=== PATIENT | male | born 1935 | race Caucasian/White ===

== ENCOUNTER 2020-05-28 08:37 | Outpatient (REF) | payer MEDICARE, SELFPAY ==
[2020-05-28 10:13] LABS: MANUAL DIFF FLAG NO
[2020-05-28 10:15] LABS: Basophils Percent Auto 0.4 % (0-2); Eosinophils Absolute Auto 0.2 X10*3/uL (0.0-0.4); Eosinophils Percent Auto 2.7 % (0-4); Hematocrit 39.3 % (42-52); Hemoglobin 13.3 g/dl (14.0-18.0); Imm Gran Abs Auto 0.02 X10*3/uL (0.00-0.03); Imm Gran Pct Auto 0.3 % (0.0-0.4); Immature Retic Fraction 7.2 % (2.3-13.4); Lymphocytes Absolute Auto 1.7 X10*3/uL (1.2-4.9); Lymphocytes Percent Auto 25.5 % (20-40); Mean Corpuscular HGB Conc 33.8 g/dl (31.0-36.0); Mean Corpuscular Hemoglobin 30.4 pg (27.0-33.0); Mean Corpuscular Volume 89.7 fL (80-98); Monocytes Absolute Auto 0.6 X10*3/uL (0.1-1.2); Monocytes Percent Auto 9.1 % (2-11); Neutrophils Absolute Auto 4.2 X10*3/uL (2.0-8.3); Platelet Count 156 X10*3/uL (160-400); Red Blood Count 4.38 X10*6/uL (4.60-5.80); Red Cell Distribution Width 13.7 % (11.0-16.0); Retic HGB Equivalent 34.1 pg (30.0-35.0); Reticulocyte Percent 1.3 % (0.5-1.8); Reticulocytes Absolute 0.055 X10*6/uL (0.026-0.095); White Blood Count 6.8 X10*3/uL (4.8-10.8)
[2020-05-28 10:37] LABS: Alanine Aminotransferase 21 U/L (0-40); Albumin Level 3.7 g/dL (3.5-5.0); Alkaline Phosphatase 57 U/L (39-117); Anion Gap 11 (12-20); Aspartate Amino Transferase 25 U/L (5-37); Bilirubin Total 0.5 mg/dL (0.0-1.0); Blood Urea Nitrogen 18 mg/dL (9-16); Calcium 9.1 mg/dL (8.4-10.2); Carbon Dioxide 28 mmol/L (22-29); Chloride 107 mmol/L (96-108); Cholesterol 152 mg/dL; Estimated Glomerular Filt Rate > 60; Glucose Fasting 108 mg/dL (60-99); HDL Cholesterol 36 mg/dL; Iron 95 mcg/dL (45-160); LDL Cholesterol Calculated 97 mg/dl; Percent Iron Saturation 33 % (15-50); Sodium 142 mmol/L (135-145); Total Iron Binding Capacity 287 mcg/dL (228-428); Total Protein 6.6 g/dL (6.5-8.0); Triglycerides 99 mg/dL; Unsaturated Iron Binding 192 ug/dL
[2020-05-28 10:42] LABS: Albumin Level 3.7 g/dL (3.5-5.0); Magnesium 1.9 mg/dL (1.6-2.6); Phosphorus 2.1 mg/dL (2.7-4.5)
[2020-05-28 10:58] LABS: Glucose Urine UA NEG (NEG); Leukocyte Esterase Urine TRACE (NEG); Nitrite Urine NEG (NEG); PH 6.5 (5.0-8.0); Urine Blood NEG (NEG); Urine Ketones NEG (NEG); Urine Protein TRACE MG/DL (NEG-TRACE)
[2020-05-28 11:01] LABS: Thyroid Stimulating Hormone 0.92 uIU/mL (0.32-4.0)
[2020-05-28 11:01] LABS: Appearance Urine CLEAR; Color Urine YELLOW
[2020-05-28 11:03] LABS: Estimated Average Glucose 105 mg/dL; Hemoglobin A1c % 5.3 %
[2020-05-28 11:08] LABS: Folate 17.6 ng/mL (> or = 4.0); Vitamin B12 828 pg/mL (200-900)
[2020-05-28 11:17] LABS: Creatinine Urine 122.94 mg/dL; Protein/Creatinine Ratio, Ur 0.22 (<0.2); Total Protein Urine Random 27 mg/dL (<12)
[2020-05-28 11:20] LABS: Ferritin 51 ng/mL (20-250); T4 Thyroxine 6.5 ug/dL (4.5-12.0)
[2020-05-28 11:22] LABS: Microalbum/Creatinine Ratio Ur 80.8 ug/mg cr
[2020-05-28 11:23] LABS: Renal w Reflex-LAB USE ONLY Order Verified
[2020-05-28 11:35] LABS: Bacteria Urine TRACE /LPF; RBC Urine 0-2 /HPF (0); Squamous Epithelial Cell Urine 1+ /LPF
[2020-05-28 12:18] LABS: Renal w Reflex Lab Use Only Order verified
[2020-05-29 14:03] LABS: Calcium (PTHI) 9.5 mg/dL (8.6-10.3); PTHI 77 pg/mL (14-64)
== END 2020-05-28 08:38 | disposition home or self-care (01) ==
LOC: HO.10HDL 08:37
PROVIDERS: Absent Provider Internal Medicine Nephrology; Visit Provider Internal Medicine
DX: N17.9 Acute kidney failure, unspecified (principal); I12.9 Hypertensive chronic kidney disease with stage 1 through stage 4 chronic kidney disease, or unspecified chronic kidney disease; N18.4 Chronic kidney disease, stage 4 (severe); C67.9 Malignant neoplasm of bladder, unspecified; K21.9 Gastro-esophageal reflux disease without esophagitis; K20.0 Eosinophilic esophagitis; R31.9 Hematuria, unspecified; N31.9 Neuromuscular dysfunction of bladder, unspecified; N40.0 Benign prostatic hyperplasia without lower urinary tract symptoms; R73.01 Impaired fasting glucose; D64.9 Anemia, unspecified
CPT/HCPCS: 36415; 80053; 80061; 81001; 82040; 82043; 82607; 82728; 82746; 83036; 83540; 83735; 83970; 84100; 84156; 84436; 84443; 85025; 85045; 87086; 87088; 87186

== ENCOUNTER 2020-07-15 12:56 | Outpatient (AMB) | payer MEDICARE, SELFPAY ==
--- NOTE | 2020-07-15 12:59 | MHC.OFFVIS ---
Intake Vital Signs 07/15/20 13:00 Height 5 ft 11 in Weight 194 lb BMI 27.0 Intake Visit Reasons: cysto Intake Note: Patient is present for cystoscopy [employer] Required: No Allergies No Known Allergies [No Known Allergies*] Allergy (Verified 07/15/20 13:13) - Last Reconciled 07/15/20 by Damon Kay III, MD doxazosin 2 mg PO DAILY hydralazine 25 mg PO BID [id number]-xheza acid-lutein 400-250 mcg (Centrum Silver) 1 tab PO DAILY nitrofurantoin macrocrystal (Macrodantin) 100 mg PO DAILY potassium chloride ER 20 mEq PO DAILY saw palmetto 500 mg PO DAILY tamsulosin 0.4 mg PO DAILY torsemide 20 mg PO DAILY - Last Reconciled 07/15/20 by Damon Kay III, MD doxazosin 2 mg PO DAILY hydralazine 25 mg PO BID [id number]-yqm-uknkd acid-lutein 400-250 mcg (Centrum Silver) 1 tab PO DAILY nitrofurantoin macrocrystal (Macrodantin) 100 mg PO DAILY potassium chloride ER 20 mEq PO DAILY saw palmetto 500 mg PO DAILY tamsulosin 0.4 mg PO DAILY torsemide 20 mg PO DAILY [facility] Medical History BPH (benign prostatic hyperplasia) CKD (chronic kidney disease) GERD (gastroesophageal reflux disease) History of renal calculi Hypertension Impaired glucose tolerance Neurogenic bladder Urinary bladder cancer Surgical History History of lumbar discectomy History of throat surgery History of tonsillectomy S/P transurethral resection of prostate Family History Father No problems noted. Mother No problems noted. Son In good health Daughter In good health HPI cysto HPI Details Patient bladder cancer follow-up 3 month cystoscopy which is negative for recurrence. Patient was prepped and draped view fashion underwent flexible cystoscopy had retrograde flexion done patient has some trabeculations some erythema but he self caths no stones no foreign bodies no mucosal lesions identified patient tolerated procedure well there were no complications. 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 Patient has had BCG and gemcitabine. Currently plan for the patient follow-up 3 months time with a repeat in office cystoscopy risks benefits potential complications morbidity mortality all questions answered informed consent obtained Review of Systems Const All systems reviewed & are unremarkable except as noted in HPI and below Physical Exam Vital Signs: Body Mass Index 27.0 Const General: cooperative, healthy appearing, comfortable, no acute distress, well developed, alert and awake Orientation/consciousness: oriented to person and patient oriented x3 HENMT Head: Yes normal to inspection Eyes General: appearance normal, both eyes and all related structures Neck Neck: Yes normal visual inspection Chest Chest palpation & inspection: normal inspection of the chest Resp Effort & Inspection: normal respiratory effort and able to speak in complete sentences Cardio Rate: regular rate Rhythm: regular rhythm GI Inspection: Yes normal to inspection Male General Exam: Yes normal external exam Penis: normal penis Skin General skin exam: no rashes or lesions noted Neuro General: oriented to person and patient oriented x3 Extrem General: Yes normal to inspection and Yes full ROM Psych Appearance: grossly normal Mental Status: mental status grossly normal Office Procedures AMB Cystoscopy Cystoscopy: [id number] Consent Consent:: Informed consent given for proposed procedure. Office Meds ciprofloxacin HCl Performing Provider: Damon Kay III, MD Administered by: KULDEEP Haynes on 07/15/20 13:04 Dose Route Admin Location Lot Number Expiration Date NDC Field Placement Director 500 mg PO Assessment & Plan Assessment & Plan (1) Neurogenic bladder: Code(s): N31.9 - Neuromuscular dysfunction of bladder, unspecified Category: Medical (2) Urinary bladder cancer: Comment: January 2016 BCG done, gemcitabine, cystoscopy every 3 months Code(s): C67.9 - Malignant neoplasm of bladder, unspecified Category: Medical Coding Level of Care Code Est Pt Level 3 (59510) Diagnoses Neurogenic bladder N31.9 Urinary bladder cancer C67.9 CPT Codes Cystoscopy - Cystoscopy: [id number] ([id number])
[2020-07-15 13:00] VITALS: BMI 27.0
== END 2020-07-15 13:15 | disposition home or self-care (01) ==
LOC: HO.HUSH 12:56
PROVIDERS: PCP Internal Medicine; Referring Provider Internal Medicine; Visit Provider Urology
DX: Z13.9 Encounter for screening, unspecified (principal)
CPT/HCPCS: 52000

== ENCOUNTER → 2020-07-15 12:56 | Outpatient (BNVA) | payer MEDICARE, SELFPAY | PROVIDERS: PCP Internal Medicine; Referring Provider Internal Medicine; Visit Provider Urology | DX: N31.9 Neuromuscular dysfunction of bladder, unspecified (principal); C67.9 Malignant neoplasm of bladder, unspecified | CPT/HCPCS: 52000; 99212 ==

== ENCOUNTER → 2020-11-01 11:00 | Outpatient (BNVA) | payer MEDICARE, SELFPAY | PROVIDERS: Visit Provider Urology | DX: N31.9 Neuromuscular dysfunction of bladder, unspecified (principal); N40.1 Benign prostatic hyperplasia with lower urinary tract symptoms; N13.8 Other obstructive and reflux uropathy; C67.9 Malignant neoplasm of bladder, unspecified | CPT/HCPCS: 52000; 99212 ==

== ENCOUNTER → 2021-01-31 09:55 | Outpatient (BNVA) | payer MEDICARE, SELFPAY | PROVIDERS: PCP Internal Medicine; Visit Provider Urology | DX: C67.9 Malignant neoplasm of bladder, unspecified (principal); N40.1 Benign prostatic hyperplasia with lower urinary tract symptoms; N13.8 Other obstructive and reflux uropathy; N31.9 Neuromuscular dysfunction of bladder, unspecified | CPT/HCPCS: 52000; 99212 ==

== ENCOUNTER 2021-02-25 09:02 | Outpatient (REF) | payer MEDICARE, SELFPAY ==
[2021-02-25 10:15] LABS: MANUAL DIFF FLAG NO
[2021-02-25 10:22] LABS: Basophils Percent Auto 0.5 % (0-2); Eosinophils Absolute Auto 0.3 X10*3/uL (0.0-0.4); Eosinophils Percent Auto 3.1 % (0-4); Hematocrit 40.6 % (42-52); Hemoglobin 13.6 g/dl (14.0-18.0); Imm Gran Abs Auto 0.02 X10*3/uL (0.00-0.03); Imm Gran Pct Auto 0.3 % (0.0-0.4); Lymphocytes Absolute Auto 2.7 X10*3/uL (1.2-4.9); Lymphocytes Percent Auto 34.1 % (20-40); Mean Corpuscular HGB Conc 33.5 g/dl (31.0-36.0); Mean Corpuscular Hemoglobin 30.1 pg (27.0-33.0); Mean Corpuscular Volume 89.8 fL (80-98); Mean Platelet Volume 11.5 fL (9.4-12.4); Monocytes Absolute Auto 0.6 X10*3/uL (0.1-1.2); Monocytes Percent Auto 7.3 % (2-11); Neutrophils Absolute Auto 4.4 X10*3/uL (2.0-8.3); Neutrophils Percent Auto 54.7 % (45-73); Platelet Count 140 X10*3/uL (160-400); Red Blood Count 4.52 X10*6/uL (4.60-5.80); Red Cell Distribution Width 13.4 % (11.0-16.0)
[2021-02-25 10:27] LABS: Estimated Average Glucose 100 mg/dL; Hemoglobin A1c % 5.1 %
[2021-02-25 10:34] LABS: Alanine Aminotransferase 21 U/L (0-40); Albumin Level 3.9 g/dL (3.5-5.0); Alkaline Phosphatase 48 U/L (39-117); Anion Gap 11 (12-20); Aspartate Amino Transferase 22 U/L (5-37); Bilirubin Total 0.8 mg/dL (0.0-1.0); Blood Urea Nitrogen 20 mg/dL (9-16); Calcium 9.6 mg/dL (8.4-10.2); Carbon Dioxide 28 mmol/L (22-29); Chloride 109 mmol/L (96-108); Cholesterol 160 mg/dL; Estimated Glomerular Filt Rate 59; Glucose Random 112 mg/dL (60-115); HDL Cholesterol 43 mg/dL; LDL Cholesterol Calculated 99 mg/dl; Potassium 4.1 mmol/L (3.3-5.1); Sodium 144 mmol/L (135-145); Total Protein 6.8 g/dL (6.5-8.0); Triglycerides 90 mg/dL
[2021-02-25 10:58] LABS: Free T4 (Free Thyroxine) 0.96 ng/dL (0.71-1.85); Prostate Specific Antigen Scr 2.21 ng/mL (<0.05-4.0)
[2021-02-25 11:13] LABS: Folate 17.5 ng/mL (> or = 4.0); Vitamin B12 720 pg/mL (200-900)
== END 2021-02-25 09:03 | disposition home or self-care (01) ==
LOC: HO.10HDL 09:02
PROVIDERS: Visit Provider Internal Medicine
DX: R73.02 Impaired glucose tolerance (oral) (principal); E78.00 Pure hypercholesterolemia, unspecified
CPT/HCPCS: 36415; 80053; 80061; 82607; 82746; 83036; 84153; 84439; 84443; 85025

== ENCOUNTER 2021-04-21 06:56 | Day surgery (SDC) | payer MEDICARE, SELFPAY ==
[2021-04-11 20:18] VITALS: BMI 27.9
--- NOTE | 2021-04-17 13:25 | P.CONAN_ITS ---
Documented by User: Michelle Peters NP 04/17/21 13:26 HPI - Anesthesia Eval Consult details Narrative: 85yo M for Laser Ablation Prostate w/Green Light ?daily ETOH PMFSH Active Problems Active Problems: All Active Problems (Updated 01/07/21 @ 13:03 by Gopi Maldonado MD) Peripheral vascular disease (Acute) Impacted cerumen of both ears (Acute) Urinary bladder cancer (Acute) Neurogenic bladder (Acute) GERD (gastroesophageal reflux disease) (Acute) Impaired glucose tolerance (Acute) BPH (benign prostatic hyperplasia) (Acute) Hypertension (Acute) Past Medical History Medical History BPH (benign prostatic hyperplasia) CKD (chronic kidney disease) GERD (gastroesophageal reflux disease) History of renal calculi Hypertension Impaired glucose tolerance Neurogenic bladder Urinary bladder cancer Family History Family History Father No problems noted. Mother No problems noted. Son In good health Daughter In good health Surgical History Surgical History History of lumbar discectomy History of throat surgery History of tonsillectomy S/P transurethral resection of prostate Social History Social History (Updated 01/07/21 @ 12:41 by Lisa Caballero CMA) Housing: House Do you presently have visiting nurse or other home services: No Alcohol intake: current Alcohol intake frequency: 0-2 drinks per day Patient Tobacco Use Status: Former Tobacco user Quit Date: 1979 Tobacco use type: Cigarette e-Cigarette/Vaping Use: Never Used Second Hand Smoke Exposure: No Use of substances other than those prescribed or required for medical reasons: No Are you DNR?: No Advance Directives: Yes Advance Directives Information Provided: Yes Advance Directives on File: Yes Advance Directives Date on File: 08/06/20 Recently lost weight without trying: No Nutrition Risks: Anorexia Poor oral hygiene: No service: Yes Current occupational status: retired Meds Allergies Allergy/AdvReac Type Severity Reaction Status Date / Time No Known Allergies Allergy Verified 04/15/21 08:18 [No Known Allergies*] Home Medications Medication Instructions Recorded Confirmed Last Taken Type doxazosin 2 mg tablet 2 mg PO DAILY 07/09/20 04/11/21 Unknown History hydralazine 25 mg tablet 25 mg PO BID tab 07/09/20 04/21/21 04/21/21 06:30 History multivit with min-folic 1 tab PO DAILY 07/09/20 04/11/21 Unknown History acid-lutein 400 mcg-250 mcg chewable tablet (Centrum Silver) potassium chloride 20 mEq 20 meq PO DAILY 07/09/20 04/11/21 Unknown History tablet,extended release saw palmetto 500 mg capsule 500 mg PO DAILY cap 07/09/20 04/11/21 Unknown History torsemide 20 mg tablet 20 mg PO DAILY 07/09/20 04/11/21 Unknown History ciprofloxacin HCl 500 mg tablet 500 mg PO BID PRN 04/11/21 04/11/21 Unknown History Exam Exam Date and Time: April 17, 2021 1325 Height,Weight and Vital Signs: Height 5 ft 10 in Weight 88.451 kg Narrative Narrative: Laboratory Tests 02/25/21 02/25/21 09:06 09:06 WBC 8.0 Hgb 13.6 L Hct 40.6 L Plt Count 140 L Sodium 144 Potassium 4.1 Chloride 109 H Carbon Dioxide 28 BUN 20 H Creatinine 1.17 Assessment and Plan Assessment Anesthesia Assessment: Chart Reviewed Documented by User: Aby Ramirez MD 04/21/21 08:38 HPI - Anesthesia Eval Consult details Narrative: 85yo M for Laser Ablation Prostate w/Green Light Daily ETOH PMFSH Active Problems Active Problems: All Active Problems (Updated 01/07/21 @ 13:03 by Gopi Maldonado MD) Peripheral vascular disease (Acute)- patient not aware of diagnosis Impacted cerumen of both ears (Acute) Urinary bladder cancer (Acute) Neurogenic bladder (Acute) GERD (gastroesophageal reflux disease) (Acute) Impaired glucose tolerance (Acute) BPH (benign prostatic hyperplasia) (Acute) Hypertension (Acute) Past Medical History Medical History BPH (benign prostatic hyperplasia) CKD (chronic kidney disease) GERD (gastroesophageal reflux disease) History of renal calculi Hypertension Impaired glucose tolerance Neurogenic bladder Urinary bladder cancer Family History Family History Father No problems noted. Mother No problems noted. Son In good health Daughter In good health Family history of problems with anesthesia: No Surgical History Surgical History History of lumbar discectomy History of throat surgery History of tonsillectomy S/P transurethral resection of prostate History of Problems with Anesthesia: No Social History Social History (Updated 01/07/21 @ 12:41 by Lisa Caballero CMA) Housing: House Do you presently have visiting nurse or other home services: No Alcohol intake: current Alcohol intake frequency: 0-2 drinks per day Patient Tobacco Use Status: Former Tobacco user Quit Date: 1979 Tobacco use type: Cigarette e-Cigarette/Vaping Use: Never Used Second Hand Smoke Exposure: No Use of substances other than those prescribed or required for medical reasons: No Are you DNR?: No Advance Directives: Yes Advance Directives Information Provided: Yes Advance Directives on File: Yes Advance Directives Date on File: 08/06/20 Recently lost weight without trying: No Nutrition Risks: Anorexia Poor oral hygiene: No service: Yes Current occupational status: retired [employer] Allergies Allergy/AdvReac Type Severity Reaction Status Date / Time No Known Allergies Allergy Verified 04/15/21 08:18 [No Known Allergies*] Home Medications Medication Instructions Recorded Confirmed Last Taken Type doxazosin 2 mg tablet 2 mg PO DAILY 07/09/20 04/11/21 Unknown History hydralazine 25 mg tablet 25 mg PO BID tab 07/09/20 04/21/21 04/21/21 06:30 History multivit with min-folic 1 tab PO DAILY 07/09/20 04/11/21 Unknown History acid-lutein 400 mcg-250 mcg chewable tablet (Centrum Silver) potassium chloride 20 mEq 20 meq PO DAILY 07/09/20 04/11/21 Unknown History tablet,extended release saw palmetto 500 mg capsule 500 mg PO DAILY cap 07/09/20 04/11/21 Unknown History torsemide 20 mg tablet 20 mg PO DAILY 07/09/20 04/11/21 Unknown History ciprofloxacin HCl 500 mg tablet 500 mg PO BID PRN 04/11/21 04/11/21 Unknown History Exam Height,Weight and Vital Signs: Height 5 ft 10 in Weight 88.451 kg Vital Signs Temp Pulse Resp BP Pulse Ox 04/21/21 07:57 97.7 F 77 18 161/70 H 98 Airway Mallampati Class: III (Small mouth) TM Dist: >3cm Neck ROM: Full Loose/Missing/Broken Teeth: Yes (Some missing) Heart: RRR Lungs: CTAB Assessment and Plan Assessment Anesthesia Assessment: Anesthesia Plan Discussed Final Anesthetic Review Family History of Problems with Anesthesia: No History of Problems with Anesthesia: No NPO: Yes ASA Class: II Final Preanesthetic Review: No Changes in Pt Med Stat, Meds/Allgs Chart Reviewed, Consent Obtained/Reviewed and Anes Risks/Benef Reviewed Patient Risk: Intermediate Procedure Risk: Low Assessment/Block/Sedation in SS: Assess/Block/Sedation-SS Anesthetic Plan Anesthetic Plan: GA Disposition: Standard PACU
[2021-04-21] MEDS: Lactated Ringers 1,000 ML 100 ML IVCONT (07:28)
--- NOTE | 2021-04-21 07:28 | MHC.SHP ---
Pre-Procedural Eval Section A Date of Service: 04/21/21 Section B Chief Complaint: neoplasm of bladder Details of Present Illness: with neurogenic bladder - plan for revision laser procedure on prostate and bladder biopsy with fulgeration Relevant Social History: None Present Medications: see Short Stay Collaborative assessment Medical History: Significant History History of Previous Operations: Relevant previous surgery/procedure and date(s) Allergies: Allergies Allergy/AdvReac Type Severity Reaction Status Date / Time No Known Allergies Allergy Verified 04/15/21 08:18 [No Known Allergies*] Review of Systems Sugical H&P ROS: Negative: Constitution, Cardiovascular, Respiratory, Neurological, Psychiatric, Hem-Onc, Allergic/Immunologic, Gastrointestinal, Genitourinary, Musculoskeletal, Integumentary, Endocrine and Eyes/Ears/Nose/Throat Exam Surgical H&P Exam: Normal: HEENT, Normal: Heart, Normal: Lungs, Normal: Extremities, Normal: Abdomen, Normal: Skin and Normal: Neurological Plan Diagnosis/Plan: Unchanged (green light laser prostate and bladder biopsy with laser) I have reviewed the history and physical and performed a pertinent physical examination on my patient. No changes have occurred unless specified.
[2021-04-21] MEDS: levoFLOXacin/D5W 500 MG/100 ML PIGGYBACK 100 MG IV (07:36)
[2021-04-21 07:57] VITALS: BP 161/70; PULSE 77; RESP 18; TEMP 36.5; O2SAT 98
[2021-04-21 09:56] VITALS: BP 155/87; PULSE 66; RESP 18; TEMP 36.3; O2SAT 100
[2021-04-21 10:04] VITALS: BP 154/78; PULSE 67; RESP 18; O2SAT 97
[2021-04-21 10:09] VITALS: BP 160/77; PULSE 60; RESP 18; O2SAT 97
[2021-04-21 10:14] VITALS: BP 160/72; PULSE 58; RESP 18; O2SAT 98
[2021-04-21] MEDS: Acetaminophen 325 MG TABLET 625 MG PO (10:14)
[2021-04-21 10:29] VITALS: BP 171/70; PULSE 60; RESP 18; TEMP 36.4; O2SAT 98
--- NOTE | 2021-04-23 08:22 | P.OP_ITS ---
Operative Note Operative Note Date of Service: 04/21/21 Narrative: PreOperative Diagnosis: Bladder outlet obstruction, bladder cancer Post Operative Diagnosis: Bladder outlet obstruction, bladder cancer Procedure: GreenLight laser enucleation of the prostate, bladder biopsy with fulguration Surgeon: Dr Roberto Aleman Anesthesia: General Indications for procedure: History of bladder outlet obstruction. Treated with alpha-jing and other medications. Prior TURP procedure many years ago. Cystoscopy performed in office. Regrowth noted of prostate. Recommendation for prostate procedure with laser enucleation of prostate. Risks, benefits and expected postprocedure course was discussed. Procedure: After informed consent was verified the patient was brought to the operating room and placed in a supine position. Anesthesia was administered per protocol. Patient was placed in modified dorsal lithotomy position and prepped and draped in a sterile fashion. Safety pause time-out was confirmed. Antibiotics have been given. Twenty-four Tanzanian laser cystoscope was inserted per urethra. No abnormalities found the anterior posterior urethra. The bladder was filled on both ureteric orifices were seen in normal position away from our area of interest. Regrowth particularly of the right lateral lobe was noted Using the GreenLight laser settings were started at 100 w. The regrown tissue was carefully ablated. The median lobe area was open. Concentration was made to ablate the lateral lobe regrowth on both sides. Approximately 75,000 joules were used performing this procedure. The bladder itself was examined and there was changed mucosa appeared consistent with chronic cystitis. Areas were biopsied. Fulguration using GreenLight laser with hemostatic settings was performed. A 22 Tanzanian 30 cc balloon Atkins catheter was placed over stylet into the bladder. Clear efflux was obtained. 30 cc was placed in the balloon and gentle traction was placed. A snap was used to hold tension once the patient will be moved and transported. Once transportation its finish this novel be removed. A belladonna and opiate suppository was placed for postprocedure pain management. He tolerated procedure well was extubated in the operating and transferred in a stable condition to the recovery area. Pathology: Prostate tissue, bladder biopsy Drains: Atkins catheter
== END 2021-04-21 11:35 | disposition home or self-care (01) ==
PROVIDERS: PCP Internal Medicine; Visit Provider Urology
PROC: (CPT 52648; principal; 2021-04-21 08:30)
DX: C67.9 Malignant neoplasm of bladder, unspecified (principal); N40.1 Benign prostatic hyperplasia with lower urinary tract symptoms; N13.8 Other obstructive and reflux uropathy; N31.9 Neuromuscular dysfunction of bladder, unspecified; N30.20 Other chronic cystitis without hematuria; I12.9 Hypertensive chronic kidney disease with stage 1 through stage 4 chronic kidney disease, or unspecified chronic kidney disease; N18.9 Chronic kidney disease, unspecified; R73.02 Impaired glucose tolerance (oral); Z87.442 Personal history of urinary calculi; Z87.891 Personal history of nicotine dependence
CPT/HCPCS: 52648; 52224; 88305; J1100; J1956; J2405; J3010

== ENCOUNTER → 2021-04-24 09:53 | Outpatient (BNVA) | payer MEDICARE, SELFPAY | PROVIDERS: PCP Internal Medicine; Visit Provider Urology ==

== ENCOUNTER 2021-05-27 09:36 | Outpatient (REF) | payer MEDICARE, SELFPAY ==
[2021-05-27 14:05] LABS: MANUAL DIFF FLAG NO
[2021-05-27 14:13] LABS: Basophils Percent Auto 0.4 % (0-2); Eosinophils Absolute Auto 0.3 X10*3/uL (0.0-0.4); Eosinophils Percent Auto 3.4 % (0-4); Hematocrit 40.8 % (42.0-52.0); Hemoglobin 13.6 g/dl (14.0-18.0); Imm Gran Abs Auto 0.01 X10*3/uL (0.00-0.03); Imm Gran Pct Auto 0.1 % (0.0-0.4); Lymphocytes Absolute Auto 2.3 X10*3/uL (1.2-4.9); Lymphocytes Percent Auto 31.5 % (20-40); Mean Corpuscular HGB Conc 33.3 g/dl (31.0-36.0); Mean Corpuscular Hemoglobin 30.2 pg (27.0-33.0); Mean Corpuscular Volume 90.5 fL (80.0-98.0); Mean Platelet Volume 11.7 fL (9.4-12.4); Monocytes Absolute Auto 0.7 X10*3/uL (0.1-1.2); Monocytes Percent Auto 8.9 % (2-11); Neutrophils Absolute Auto 4.1 x10*3/uL (2.0-8.3); Neutrophils Percent Auto 55.7 % (45-73); Platelet Count 141 X10*3/uL (160-400); Red Blood Count 4.51 X10*6/uL (4.60-5.80); Red Cell Distribution Width 13.2 % (11.0-16.0); White Blood Count 7.3 X10*3/uL (4.8-10.8)
[2021-05-27 14:39] LABS: Albumin Level 3.9 g/dL (3.5-5.0); Anion Gap 13 (12-20); Blood Urea Nitrogen 23 mg/dL (9-16); Calcium 9.5 mg/dL (8.4-10.2); Carbon Dioxide 26 mmol/L (22-29); Chloride 109 mmol/L (96-108); Estimated Glomerular Filt Rate 55; Magnesium 2.1 mg/dL (1.6-2.6); Phosphorus 2.1 mg/dL (2.7-4.5); Potassium 4.1 mmol/L (3.3-5.1); Sodium 144 mmol/L (135-145)
[2021-05-27 14:42] LABS: Renal w Reflex Lab Use Only Order verified
[2021-05-27 14:58] LABS: Vitamin D 25-OH Total 29.6 ng/mL (>30)
[2021-05-28 10:48] LABS: Appearance Urine CLEAR; Color Urine YELLOW; Glucose Urine UA NEG (NEG); Leukocyte Esterase Urine 2+ (NEG); Nitrite Urine NEG (NEG); Specific Gravity - Urine 1.015 (1.005-1.025); UACC Culture Trigger YES; Urine Blood TRACE (NEG); Urine Ketones NEG (NEG); Urine Protein 1+ MG/DL (NEG-TRACE)
[2021-05-28 11:17] LABS: WBC Urine 30-49 /HPF (0-4)
[2021-05-28 11:18] LABS: Creatinine Urine 113.42 mg/dL; Microalbum/Creatinine Ratio Ur 175.4 ug/mg cr; Protein/Creatinine Ratio, Ur 0.39 (<0.2); Squamous Epithelial Cell Urine TRACE /LPF; Total Protein Urine Random 44 mg/dL (<12)
[2021-05-28 13:22] LABS: Calcium (PTHI) 9.5 mg/dL (8.6-10.3); PTHI 85 pg/mL (14-64)
[2021-05-28 14:35] LABS: Renal w Reflex-LAB USE ONLY Order Verified
== END 2021-05-27 09:37 | disposition home or self-care (01) ==
LOC: HO.10HDL 09:36
PROVIDERS: Visit Provider Internal Medicine Nephrology
DX: I12.9 Hypertensive chronic kidney disease with stage 1 through stage 4 chronic kidney disease, or unspecified chronic kidney disease (principal); N18.4 Chronic kidney disease, stage 4 (severe); N17.9 Acute kidney failure, unspecified; C67.9 Malignant neoplasm of bladder, unspecified; K21.9 Gastro-esophageal reflux disease without esophagitis; N20.0 Calculus of kidney; R31.9 Hematuria, unspecified; N31.9 Neuromuscular dysfunction of bladder, unspecified
CPT/HCPCS: 36415; 80051; 81001; 81003; 82040; 82043; 82306; 82310; 82565; 83735; 83970; 84100; 84156; 84520; 85025; 87086

== ENCOUNTER → 2021-06-03 10:23 | Outpatient (BNVA) | payer MEDICARE, SELFPAY | PROVIDERS: PCP Internal Medicine; Visit Provider Urology | DX: C67.9 Malignant neoplasm of bladder, unspecified (principal); N31.9 Neuromuscular dysfunction of bladder, unspecified; N40.1 Benign prostatic hyperplasia with lower urinary tract symptoms; N13.8 Other obstructive and reflux uropathy; I12.9 Hypertensive chronic kidney disease with stage 1 through stage 4 chronic kidney disease, or unspecified chronic kidney disease; N18.9 Chronic kidney disease, unspecified; Z87.891 Personal history of nicotine dependence; Z96.0 Presence of urogenital implants; Z79.899 Other long term (current) drug therapy | CPT/HCPCS: Q3014 ==

== ENCOUNTER → 2021-11-18 09:57 | Outpatient (BNVA) | payer MEDICARE, SELFPAY | PROVIDERS: PCP Internal Medicine; Visit Provider Urology | DX: C67.9 Malignant neoplasm of bladder, unspecified (principal) | CPT/HCPCS: 52000; 99212 ==

== ENCOUNTER 2021-12-15 12:30 | Day surgery (SDC) | payer MEDICARE, SELFPAY ==
[2021-12-09 10:45] VITALS: BMI 27.9
--- NOTE | 2021-12-12 11:11 | HO.ANESPROP2 ---
Documented by User: Michelle Peters NP 12/12/21 11:15 HPI - Anesthesia Eval Consult details Narrative: 86yo M for TUR Bladder Tumor with gemcitabine s/p laser prostate 04/2021 with GA-LMA 4 PMFSH Active Problems Active Problems: All Active Problems (Updated 07/10/21 @ 11:32 by PAMELA Doherty) Neurogenic bladder (Acute) Adult general medical exam (Acute) Urinary bladder cancer (Acute) GERD (gastroesophageal reflux disease) (Acute) Impaired glucose tolerance (Acute) BPH (benign prostatic hyperplasia) (Acute) Hypertension (Acute) Past Medical History Medical History (Updated 12/15/21 @ 15:24 by Gopi Maldonado MD) CKD (chronic kidney disease) History of renal calculi Impacted cerumen of both ears Neurogenic bladder Peripheral vascular disease Family History Family History Father No problems noted. Mother No problems noted. Son In good health Daughter In good health Family history of problems with anesthesia: No Surgical History Surgical History (Updated 12/09/21 @ 10:42 by Chelle Tomlinson RN) H/O colonoscopy History of biopsy of bladder History of esophagogastroduodenoscopy (EGD) History of lumbar discectomy History of prostate surgery History of throat surgery History of tonsillectomy S/P transurethral resection of prostate History of Problems with Anesthesia: No Social History Social History Housing: House Do you presently have visiting nurse or other home services: No Alcohol intake: current Alcohol intake frequency: 0-2 drinks per day Patient Tobacco Use Status: Former Tobacco user Quit Date: 1979 Tobacco use type: Cigarette e-Cigarette/Vaping Use: Never Used Second Hand Smoke Exposure: No Use of substances other than those prescribed or required for medical reasons: No Are you DNR?: No Advance Directives: No Advance Directives Information Provided: Yes Advance Directives Date on File: 08/06/20 service: Yes Current occupational status: retired Meds Allergies Allergy/AdvReac Type Severity Reaction Status Date / Time No Known Allergies Allergy Verified 11/18/21 10:09 [No Known Allergies*] Home Medications Medication Instructions Recorded Confirmed Last Taken Type hydralazine 25 mg tablet 25 mg PO BID 07/09/20 12/09/21 04/21/21 06:30 History multivit with min-folic 1 tab PO DAILY 07/09/20 12/09/21 Unknown History acid-lutein 400 mcg-250 mcg chewable tablet (Centrum Silver) potassium chloride 20 mEq 20 meq PO DAILY 07/09/20 12/09/21 Unknown History tablet,extended release torsemide 20 mg tablet 20 mg PO DAILY 07/09/20 12/09/21 Unknown History doxazosin 2 mg tablet 4 mg PO DAILY 07/10/21 12/09/21 Unknown History Exam Exam Date and Time: December 12, 2021 1111 Height,Weight and Vital Signs: Height 5 ft 10 in Weight 88.451 kg Pertinent Lab Results Pertinent Lab Results: Laboratory Tests 05/27/21 05/27/21 09:50 09:50 WBC 7.3 Hgb 13.6 L Hct 40.8 L Plt Count 141 L Sodium 144 Potassium 4.1 Chloride 109 H Carbon Dioxide 26 BUN 23 H Creatinine 1.25 Assessment and Plan Assessment Anesthesia Assessment: Chart Reviewed Final Anesthetic Review Family History of Problems with Anesthesia: No History of Problems with Anesthesia: No Documented by User: Carroll Fierro MD 12/15/21 16:45 [facility] Past Medical History Medical History (Updated 12/15/21 @ 15:24 by Gopi Maldonado MD) CKD (chronic kidney disease) History of renal calculi Impacted cerumen of both ears Neurogenic bladder Peripheral vascular disease Family History Family History Father No problems noted. Mother No problems noted. Son In good health Daughter In good health Surgical History Surgical History (Updated 12/09/21 @ 10:42 by Chelle Tomlinson RN) H/O colonoscopy History of biopsy of bladder History of esophagogastroduodenoscopy (EGD) History of lumbar discectomy History of prostate surgery History of throat surgery History of tonsillectomy S/P transurethral resection of prostate Social History Social History Housing: House Do you presently have visiting nurse or other home services: No Alcohol intake: current Alcohol intake frequency: 0-2 drinks per day Patient Tobacco Use Status: Former Tobacco user Quit Date: 1979 Tobacco use type: Cigarette e-Cigarette/Vaping Use: Never Used Second Hand Smoke Exposure: No Use of substances other than those prescribed or required for medical reasons: No Are you DNR?: No Advance Directives: No Advance Directives Information Provided: Yes Advance Directives Date on File: 08/06/20 service: Yes Current occupational status: retired Meds Allergies Allergy/AdvReac Type Severity Reaction Status Date / Time No Known Allergies Allergy Verified 11/18/21 10:09 [No Known Allergies*] Home Medications Medication Instructions Recorded Confirmed Last Taken Type hydralazine 25 mg tablet 25 mg PO BID 07/09/20 12/09/21 04/21/21 06:30 History multivit with min-folic 1 tab PO DAILY 07/09/20 12/09/21 Unknown History acid-lutein 400 mcg-250 mcg chewable tablet (Centrum Silver) potassium chloride 20 mEq 20 meq PO DAILY 07/09/20 12/09/21 Unknown History tablet,extended release torsemide 20 mg tablet 20 mg PO DAILY 07/09/20 12/09/21 Unknown History doxazosin 2 mg tablet 4 mg PO DAILY 07/10/21 12/09/21 Unknown History Exam Airway Mallampati Class: III TM Dist: >3cm Neck ROM: Full Partial: Lower Loose/Missing/Broken Teeth: Yes (Poor dentition ) Heart: S1,S2 Lungs: b/l breath sounds Assessment and Plan Assessment Anesthesia Assessment: Anesthesia Plan Discussed Final Anesthetic Review NPO: Yes ASA Class: II Final Preanesthetic Review: Meds/Allgs Chart Reviewed, Consent Obtained/Reviewed and Anes Risks/Benef Reviewed Patient Risk: Intermediate Procedure Risk: Intermediate Anesthetic Plan Anesthetic Plan: GA Disposition: Standard PACU
[2021-12-15] VITALS (11 sets, daily range): BP systolic 134–159; BP diastolic 59–77; PULSE 63–87; RESP 14–18; TEMP 36.7–37.1; O2SAT 96–99
--- NOTE | 2021-12-15 13:46 | MHC.SHP ---
Pre-Procedural Eval Section A Date of Service: 12/15/21 The patient is an INPATIENT: No Changes since office visit: No Cold of Flu in the past 2 weeks, No New Medical Problems, No Changes in Medication and No Patient answered all questions The History & Physical has been completed within 30 days and I have reviewed it.: Yes Section B Chief Complaint: Malignant neoplasm of bladder, unspecified Allergies: Allergies Allergy/AdvReac Type Severity Reaction Status Date / Time No Known Allergies Allergy Verified 11/18/21 10:09 [No Known Allergies*] Plan Diagnosis/Plan: Unchanged (cystoscopy, turbt and gemcitabine) I have reviewed the history and physical and performed a pertinent physical examination on my patient. No changes have occurred unless specified.
--- NOTE | 2021-12-15 14:54 | W.PM.OPN ---
Operative Note Operative Note Date of Service: 12/15/21 Narrative: PreOperative Diagnosis: bladder cancer Post Operative Diagnosis: bladder cancer Procedure: TURBT - Medium - and Gemcitabine installation Surgeon: Dr Roberto Aleman Anesthesia: general Indications for procedure: recurrent superficial bladder cancer on cystoscopy Procedure: After informed consent was verified the patient was brought to the operating room and placed in a supine position. anesthesia was administered per protocol. the patient was placed in a modified dorsal lithotomy position and prepped and draped in a sterile fashion. Safety pause time-out was performed. Antibiotics were confirmed. A 26 [place]ian continuous flow resectoscope was inserted per urethra. The visual obturator was used in order to minimize potential for urethral damage. Superficial bladder cancer throughout posterior and left wall of bladder. Using bipolar resectoscope this area was fulgurated extensively. Cancer was really just involving upper layer the surface. We were using a scope compatible with narrow band imaging. Narrow band imaging performed throughout cystoscopy in order highlight and help visualize areas for fulguration. Multiple areas larger than a quarter fulgerated on posterior wall. At the completion of the procedure the bladder was irrigated. The cystoscope was removed. A [address] Atkins catheter was inserted into the bladder. 10 cc was placed in the balloon. 2 g of gemcitabine in 100 cc of normal saline was instilled into the bladder. the flow from the catheter was left clamped. The inflow to the catheter was attached to a 3 L normal saline bag. The patient Tolerated the procedure well. They were extubated in the operating room and transferred in stable condition to the recovery area. Gemcitabine will remain in the bladder for 1 hour. At the completion of 1 hour the clamp will be removed. The gemcitabine will be allowed to egress to the urine collection bag. The 3 L bag of normal saline will be run at maximum rate through the bladder in order to dilute any residual gemcitabine. The Atkins catheter will then be removed. Pathology: - Drains: 3 way catheter
== END 2021-12-15 17:24 | disposition home or self-care (01) ==
PROVIDERS: PCP Internal Medicine; Visit Provider Urology
PROC: 0TBB8ZZ Excision of Bladder, Via Natural or Artificial Opening Endoscopic (ICD-10-PCS; CPT 52235; principal; 2021-12-15 14:00)
DX: C67.4 Malignant neoplasm of posterior wall of bladder (principal); N40.0 Benign prostatic hyperplasia without lower urinary tract symptoms; N31.9 Neuromuscular dysfunction of bladder, unspecified; I12.9 Hypertensive chronic kidney disease with stage 1 through stage 4 chronic kidney disease, or unspecified chronic kidney disease; N18.9 Chronic kidney disease, unspecified; R73.02 Impaired glucose tolerance (oral); K21.9 Gastro-esophageal reflux disease without esophagitis; I73.9 Peripheral vascular disease, unspecified; Z87.442 Personal history of urinary calculi; Z87.891 Personal history of nicotine dependence
CPT/HCPCS: 52235; 51720; J1956; J2370; J3010; J9201

== ENCOUNTER → 2021-12-25 09:40 | Outpatient (BNVA) | payer MEDICARE, SELFPAY | PROVIDERS: PCP Internal Medicine; Visit Provider Urology | DX: C67.9 Malignant neoplasm of bladder, unspecified (principal); N31.9 Neuromuscular dysfunction of bladder, unspecified | CPT/HCPCS: 51798; 99212 ==

== ENCOUNTER 2022-03-27 13:03 | Outpatient (REF) | payer MEDICARE, SELFPAY ==
[2022-03-27 17:00] LABS: Urine Cytology See Pathology rpt
== END 2022-03-27 13:04 | disposition home or self-care (01) ==
LOC: HO.LAB 13:03
PROVIDERS: Visit Provider Urology
DX: C67.9 Malignant neoplasm of bladder, unspecified (principal); N39.0 Urinary tract infection, site not specified; N31.9 Neuromuscular dysfunction of bladder, unspecified
CPT/HCPCS: 52000; 88112; 99212

== ENCOUNTER 2022-06-08 11:04 | Outpatient (REF) | payer MEDICARE, SELFPAY ==
[2022-06-08 13:57] LABS: MANUAL DIFF FLAG NO
[2022-06-08 14:06] LABS: Basophils Absolute Auto 0.1 X10*3/uL (0.0-0.2); Basophils Percent Auto 0.6 % (0-2); Eosinophils Absolute Auto 0.2 X10*3/uL (0.0-0.4); Eosinophils Percent Auto 2.8 % (0-4); Hematocrit 40.7 % (42.0-52.0); Hemoglobin 13.4 g/dl (14.0-18.0); Imm Gran Abs Auto 0.03 X10*3/uL (0.00-0.03); Imm Gran Pct Auto 0.4 % (0.0-0.4); Lymphocytes Absolute Auto 2.3 X10*3/uL (1.2-4.9); Lymphocytes Percent Auto 26.7 % (20-40); Mean Corpuscular HGB Conc 32.9 g/dl (31.0-36.0); Mean Corpuscular Hemoglobin 29.8 pg (27.0-33.0); Mean Corpuscular Volume 90.4 fL (80.0-98.0); Mean Platelet Volume 11.7 fL (9.4-12.4); Monocytes Absolute Auto 0.9 X10*3/uL (0.1-1.2); Monocytes Percent Auto 11.1 % (2-11); Neutrophils Absolute Auto 4.9 x10*3/uL (2.0-8.3); Neutrophils Percent Auto 58.4 % (45-73); Platelet Count 159 X10*3/uL (160-400); Red Cell Distribution Width 13.2 % (11.0-16.0); White Blood Count 8.5 X10*3/uL (4.8-10.8)
[2022-06-08 14:15] LABS: Phosphorus 1.9 mg/dL (2.7-4.5)
[2022-06-08 14:24] LABS: Appearance Urine Cloudy; Color Urine Yellow; Glucose Urine UA Negative (Negative); Leukocyte Esterase Urine Large (3+) (Negative); Nitrite Urine Negative (Negative); UMIC TRIGGER UA YES; Urine Blood Trace (Negative); Urine Ketones Negative (Negative); Urine Protein 30 (1+) mg/dL (Neg-Trace)
[2022-06-08 14:27] LABS: Bacteria Urine None Seen (None Seen); Hyaline Casts Urine 0-2 /LPF (0-2); RBC Urine 0-2 /HPF (0-2); Squamous Epithelial Cell Urine 0-2 /HPF (0-2); WBC Urine >50 /HPF (0-5)
[2022-06-08 14:36] LABS: Vitamin D 25-OH Total 34.6 ng/mL (>30)
[2022-06-08 15:14] LABS: Alanine Aminotransferase 20 U/L (0-40); Alkaline Phosphatase 54 U/L (39-117); Anion Gap 12 (12-20); Aspartate Amino Transferase 22 U/L (5-37); Bilirubin Total 0.6 mg/dL (0.0-1.0); Blood Urea Nitrogen 24 mg/dL (9-16); Calcium 9.8 mg/dL (8.4-10.2); Carbon Dioxide 29 mmol/L (22-29); Chloride 108 mmol/L (96-108); Cholesterol 142 mg/dL; Estimated Glomerular Filt Rate 58; Free T4 (Free Thyroxine) 1.07 ng/dL (0.71-1.85); Glucose Random 110 mg/dL (60-115); HDL Cholesterol 38 mg/dL; LDL Cholesterol Calculated 90 mg/dl; Potassium 4.2 mmol/L (3.3-5.1); Sodium 145 mmol/L (135-145); Total Protein 6.8 g/dL (6.5-8.0); Triglycerides 74 mg/dL
[2022-06-08 15:25] LABS: Vitamin B12 791 pg/mL (200-900)
[2022-06-08 15:38] LABS: Microalbum/Creatinine Ratio Ur 278.5 ug/mg cr; Protein/Creatinine Ratio, Ur 0.54 (<0.2); Total Protein Urine Random 29 mg/dL (<12)
[2022-06-09 09:48] LABS: Calcium (PTHI) 9.7 mg/dL (8.6-10.3); PTHI 95 pg/mL (16-77)
== END 2022-06-08 11:05 | disposition home or self-care (01) ==
LOC: HO.10HDL 11:04
PROVIDERS: Absent Provider Internal Medicine Nephrology; Visit Provider Internal Medicine
DX: I12.9 Hypertensive chronic kidney disease with stage 1 through stage 4 chronic kidney disease, or unspecified chronic kidney disease (principal); N18.31 Chronic kidney disease, stage 3a; N31.9 Neuromuscular dysfunction of bladder, unspecified; E78.00 Pure hypercholesterolemia, unspecified; R73.02 Impaired glucose tolerance (oral); R82.71 Bacteriuria; B96.1 Klebsiella pneumoniae [K. pneumoniae] as the cause of diseases classified elsewhere
CPT/HCPCS: 36415; 80053; 80061; 81001; 82043; 82306; 82607; 82746; 83735; 83970; 84100; 84156; 84439; 84443; 85025; 87086; 87088; 87186

== ENCOUNTER → 2022-07-17 14:20 | Outpatient (BNVA) | payer MEDICARE, SELFPAY | PROVIDERS: PCP Internal Medicine; Visit Provider Urology | DX: N31.9 Neuromuscular dysfunction of bladder, unspecified (principal); C67.9 Malignant neoplasm of bladder, unspecified; N39.0 Urinary tract infection, site not specified | CPT/HCPCS: Q3014 ==

== ENCOUNTER 2022-09-14 09:59 | Day surgery (SDC) | payer MEDICARE, SELFPAY ==
[2022-09-10 09:22] VITALS: BMI 24.0
--- NOTE | 2022-09-11 11:15 | P.CONAN_ITS ---
Documented by User: Michelle Peters NP 09/11/22 11:18 HPI - Anesthesia Eval Consult details Narrative: 87yo M Cystoscopy & Bladder Biopsy, Cystoscopy Bladder Fulguration with mytomycin instillation Neurogenic bladder, self caths s/p TURBT 12/2021 with GA-LMA 4 PMFSH Active Problems Active Problems: All Active Problems (Updated 09/10/22 @ 09:21 by Jeanentte Murphy, [place]) Neurogenic bladder (Acute) Adult general medical exam (Acute) Chronic UTI (urinary tract infection) (Acute) Hypophosphatemia (Acute) Urinary bladder cancer (Acute) GERD (gastroesophageal reflux disease) (Acute) Impaired glucose tolerance (Acute) BPH (benign prostatic hyperplasia) (Acute) Hypertension (Acute) Past Medical History Medical History BPH (benign prostatic hyperplasia) CKD (chronic kidney disease) GERD (gastroesophageal reflux disease) History of renal calculi Hypertension Impacted cerumen of both ears Impaired glucose tolerance Neurogenic bladder Peripheral vascular disease Self-catheterizes urinary bladder Urinary bladder cancer Family History Family History Father No problems noted. Mother No problems noted. Son In good health Daughter In good health Family history of problems with anesthesia: No Surgical History Surgical History H/O colonoscopy History of biopsy of bladder History of esophagogastroduodenoscopy (EGD) History of lumbar discectomy History of prostate surgery History of throat surgery History of tonsillectomy S/P transurethral resection of prostate History of Problems with Anesthesia: No Social History Social History Housing: House Are you a primary foster care case manager to a significant other at home: Yes ( s/p CVA) Do you presently have visiting nurse or other home services: Yes (Private nurse Wednesday+Wednesday 9-5, supportive daughter) Alcohol intake: current Alcohol intake frequency: 0-2 drinks per day Patient Tobacco Use Status: Former Tobacco user Quit Date: Tobacco use type: Cigarette e-Cigarette/Vaping Use: Never Used Second Hand Smoke Exposure: No Use of substances other than those prescribed or required for medical reasons: No Have you been hit, kicked, punched, or otherwise hurt by someone within the past year? If so, by whom?: No Are you DNR?: No Advance Directives: Yes Advance Directives Information Provided: No Advance Directives on File: Yes Advance Directives Date on File: 08/06/20 Nutrition Risks: Surgical patient >75years Poor oral hygiene: No (bridge lower) service: Yes Current occupational status: retired Cognitive needs: No Hearing needs: No Vision needs: Yes Meds Allergies Allergy/AdvReac Type Severity Reaction Status Date / Time No Known Allergies Allergy Verified 09/10/22 09:27 [No Known Allergies*] Home Medications Medication Instructions Recorded Confirmed Last Taken Type hydralazine 25 mg tablet 25 mg PO BID 07/09/20 09/10/22 09/14/22 History multivit with min-folic 1 tab PO DAILY 07/09/20 09/10/22 Unknown History acid-lutein 400 mcg-250 mcg chewable tablet (Centrum Silver) torsemide 20 mg tablet 20 mg PO DAILY 07/09/20 09/10/22 Unknown History doxazosin 2 mg tablet 2 tab PO BEDTIME 09/10/22 09/10/22 Unknown History ciprofloxacin HCl 250 mg tablet 250 mg PO BID PRN straight cath 09/14/22 Unknown History Exam Exam Date and Time: September 11, 2022 1115 Height,Weight and Vital Signs: Height 5 ft 10 in Weight 76.204 kg Pertinent Lab Results Pertinent Lab Results: Laboratory Tests 06/08/22 06/08/22 11:11 11:11 WBC 8.5 Hgb 13.4 L Hct 40.7 L Plt Count 159 L Sodium 145 Potassium 4.2 Chloride 108 Carbon Dioxide 29 BUN 24 H Creatinine 1.19 Assessment and Plan Assessment Anesthesia Assessment: Chart Reviewed Final Anesthetic Review Family History of Problems with Anesthesia: No History of Problems with Anesthesia: No Documented by User: Aby Ramirez MD 09/14/22 12:49 PMFSH Past Medical History Medical History BPH (benign prostatic hyperplasia) CKD (chronic kidney disease) GERD (gastroesophageal reflux disease) History of renal calculi Hypertension Impacted cerumen of both ears Impaired glucose tolerance Neurogenic bladder Peripheral vascular disease Self-catheterizes urinary bladder Urinary bladder cancer Family History Family History Father No problems noted. Mother No problems noted. Son In good health Daughter In good health Surgical History Surgical History H/O colonoscopy History of biopsy of bladder History of esophagogastroduodenoscopy (EGD) History of lumbar discectomy History of prostate surgery History of throat surgery History of tonsillectomy S/P transurethral resection of prostate Social History Social History Housing: House Are you a primary foster care case manager to a significant other at home: Yes ( s/p CVA) Do you presently have visiting nurse or other home services: Yes (Private nurse Wednesday+Wednesday 9-5, supportive daughter) Alcohol intake: current Alcohol intake frequency: 0-2 drinks per day Patient Tobacco Use Status: Former Tobacco user Quit Date: Tobacco use type: Cigarette e-Cigarette/Vaping Use: Never Used Second Hand Smoke Exposure: No Use of substances other than those prescribed or required for medical reasons: No Have you been hit, kicked, punched, or otherwise hurt by someone within the past year? If so, by whom?: No Are you DNR?: No Advance Directives: Yes Advance Directives Information Provided: No Advance Directives on File: Yes Advance Directives Date on File: 08/06/20 Nutrition Risks: Surgical patient >75years Poor oral hygiene: No (bridge lower) service: Yes Current occupational status: retired Cognitive needs: No Hearing needs: No Vision needs: Yes Meds Allergies Allergy/AdvReac Type Severity Reaction Status Date / Time No Known Allergies Allergy Verified 09/10/22 09:27 [No Known Allergies*] Home Medications Medication Instructions Recorded Confirmed Last Taken Type hydralazine 25 mg tablet 25 mg PO BID 07/09/20 09/10/22 09/14/22 History multivit with min-folic 1 tab PO DAILY 07/09/20 09/10/22 Unknown History acid-lutein 400 mcg-250 mcg chewable tablet (Centrum Silver) torsemide 20 mg tablet 20 mg PO DAILY 07/09/20 09/10/22 Unknown History doxazosin 2 mg tablet 2 tab PO BEDTIME 09/10/22 09/10/22 Unknown History ciprofloxacin HCl 250 mg tablet 250 mg PO BID PRN straight cath 09/14/22 Unknown History Exam Height,Weight and Vital Signs: Height 5 ft 10 in Weight 76.204 kg Vital Signs Temp Pulse Resp BP Pulse Ox O2 Del Method 09/14/22 10:21 97.6 F 76 18 148/52 H 97 Room Air Airway Mallampati Class: II TM Dist: >3cm Neck ROM: Full Partial: Lower Loose/Missing/Broken Teeth: Yes (Some missing,some discoloration. Denies broken or loose teeth) Heart: Irregular. Sinus arrhythmia on monitor Lungs: CTAB Assessment and Plan Assessment Anesthesia Assessment: Anesthesia Plan Discussed Final Anesthetic Review NPO: Yes ASA Class: III Final Preanesthetic Review: No Changes in Pt Med Stat, Meds/Allgs Chart Reviewed, Consent Obtained/Reviewed and Anes Risks/Benef Reviewed Patient Risk: Intermediate Procedure Risk: Low Assessment/Block/Sedation in SS: Assess/Block/Sedation-SS Anesthetic Plan Anesthetic Plan: GA Disposition: Standard PACU
[2022-09-14] VITALS (9 sets, daily range): BP systolic 130–162; BP diastolic 47–72; PULSE 57–76; RESP 12–20; TEMP 36.2–36.4; O2SAT 97–99; BMI 24.3
[2022-09-14] MEDS: Lactated Ringers 1,000 ML 100 ML IVCONT (10:45)
--- NOTE | 2022-09-14 11:56 | MHC.SHP ---
Pre-Procedural Eval Section A Date of Service: 09/14/22 The patient is an INPATIENT: No Changes since office visit: No Cold of Flu in the past 2 weeks, No New Medical Problems, No Changes in Medication and No Patient answered all questions The History & Physical has been completed within 30 days and I have reviewed it.: No Section B Chief Complaint: Malignant neoplasm of bladder, unspecified Details of Present Illness: recurrence superficial bladder cancer Relevant Social History: None Present Medications: see Short Stay Collaborative assessment Medical History: Significant History History of Previous Operations: Relevant previous surgery/procedure and date(s) Allergies: Allergies Allergy/AdvReac Type Severity Reaction Status Date / Time No Known Allergies Allergy Verified 09/10/22 09:27 [No Known Allergies*] Review of Systems Sugical H&P ROS: Negative: Constitution, Cardiovascular, Respiratory, Neurological, Psychiatric, Hem-Onc, Allergic/Immunologic, Gastrointestinal, Genitourinary, Musculoskeletal, Integumentary, Endocrine and Eyes/Ears/Nose/Throat Exam Surgical H&P Exam: Normal: HEENT, Normal: Heart, Normal: Lungs, Normal: Extremities, Normal: Abdomen, Normal: Skin and Normal: Neurological Plan Diagnosis/Plan: Unchanged ( bladder biopsy, fulguration, mitomycin-C) I have reviewed the history and physical and performed a pertinent physical examination on my patient. No changes have occurred unless specified. Time Spent With Patient Time: Total time managing care of this patient today ____ minutes.
--- NOTE | 2022-09-14 13:03 | W.PM.OPN ---
Operative Note Operative Note Date of Service: 09/14/22 Narrative: PreOperative Diagnosis: bladder cancer Post Operative Diagnosis: bladder cancer Procedure: cystoscopy, bladder biopsy, fulguration, mitomycin C instillation Surgeon: Dr Roberto Aleman Anesthesia: LMA Indications for procedure: Superficial bladder cancer. Here for cystoscopy, bladder biopsy. Evaluation. Procedure: After informed consent was verified the patient was brought to the operating room and placed in a supine position. Anesthesia was administered per protocol. The patient was placed in modified dorsal lithotomy position and prepped and draped in a sterile fashion. Safety pause time-out was performed. Antibiotics being given. Cystoscopy was performed. area of inflammation around right ureteric orifice. This was biopsied. Secondary on posterior wall biopsied. Switching to narrow band light there were many areas in the bladder that was suspicious. Previously he has had biopsies that have come back as inflammatory. Fulguration performed on posterior wall At this point in the procedure the cystoscope was removed. An 18 Gu[place] Atkins catheter placed. 40 mg of mitomycin-C in 20 cc of normal saline was instilled. This was clamped with the Atkins catheter in remain clamped for 1 hour. At this 0.3 L of normal saline will be irrigated through the bladder before Atkins catheter removal. The patient tolerated the procedure well. They were extubated in operating room and transferred in stable conditions recovery area. Pathology: Bladder biopsies Drains: None
== END 2022-09-14 15:06 | disposition home or self-care (01) ==
PROVIDERS: PCP Internal Medicine; Visit Provider Urology
PROC: (CPT 52234; principal; 2022-09-14 11:50)
PROC: 0T5B8ZZ Destruction of Bladder, Via Natural or Artificial Opening Endoscopic (ICD-10-PCS; CPT 52234; 2022-09-14 11:50)
DX: C67.9 Malignant neoplasm of bladder, unspecified (principal); N31.9 Neuromuscular dysfunction of bladder, unspecified; I12.9 Hypertensive chronic kidney disease with stage 1 through stage 4 chronic kidney disease, or unspecified chronic kidney disease; N18.9 Chronic kidney disease, unspecified; N40.0 Benign prostatic hyperplasia without lower urinary tract symptoms; Z87.442 Personal history of urinary calculi; I73.9 Peripheral vascular disease, unspecified; R73.02 Impaired glucose tolerance (oral); Z79.899 Other long term (current) drug therapy; Z87.891 Personal history of nicotine dependence; Z98.890 Other specified postprocedural states
CPT/HCPCS: 52234; 51720; 88307; J1956; J2405; J3010; J9280

== ENCOUNTER → 2022-09-29 11:42 | Outpatient (BNVA) | payer MEDICARE, SELFPAY | PROVIDERS: PCP Internal Medicine; Visit Provider Urology | DX: N31.9 Neuromuscular dysfunction of bladder, unspecified (principal); C67.9 Malignant neoplasm of bladder, unspecified | CPT/HCPCS: 99212 ==

== ENCOUNTER 2022-10-23 09:29 | Outpatient (REF) | payer MEDICARE, SELFPAY ==
[2022-10-23 12:14] LABS: Alanine Aminotransferase 19 U/L (0-40); Albumin Level 3.8 g/dL (3.5-5.0); Alkaline Phosphatase 53 U/L (39-117); Anion Gap 9 (12-20); Aspartate Amino Transferase 22 U/L (5-37); Bilirubin Total 0.9 mg/dL (0.0-1.0); Blood Urea Nitrogen 23 mg/dL (9-16); Calcium 9.4 mg/dL (8.4-10.2); Carbon Dioxide 28 mmol/L (22-29); Chloride 112 mmol/L (96-108); Estimated Glomerular Filt Rate 55; Glucose Random 106 mg/dL (60-115); Phosphorus 2.5 mg/dL (2.7-4.5); Potassium 4.2 mmol/L (3.3-5.1); Sodium 145 mmol/L (135-145); Total Protein 6.5 g/dL (6.5-8.0)
== END 2022-10-23 09:30 | disposition home or self-care (01) ==
LOC: HO.WFDLDS 09:29
PROVIDERS: Visit Provider Internal Medicine
DX: E83.39 Other disorders of phosphorus metabolism (principal)
CPT/HCPCS: 36415; 80053; 84100

== ENCOUNTER 2023-01-26 10:56 | Outpatient (AMB) | payer MEDICARE, SELFPAY ==
--- NOTE | 2023-01-26 11:01 | A.OFFVIS_ITS ---
Intake Intake Visit Reasons: 4m/cysto Intake Note: Patient is present for Cystoscopy Urology Med: Doxazosin,Methenamine, Tamsulosin Antibiotic Allergy:None Blood Thinner: None Disposable Cystoscope LOT: [id number] EXP:11/23/24 Allergies No Known Allergies [No Known Allergies*] Allergy (Verified 01/26/23 11:06) HPI HPI Comments History of Present Illness Details Jason is a pleasant male. He is a patient of Dr. Valdivia. He is seen for the following urologic issues - bladder cancer - neurogenic bladder requiring self catheterization Recurrent superficial bladder cancer Likely secondary to combination of neurogenic bladder with workplace exposure Bladder cancer - 09/24 fulguration with gemcitabine induction Initial diagnosis with Dr. 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 Neurogenic bladder Uses self catheterization TURP late - [facility]rowth left side GreenLight laser April 2021 PSA 02/22 2.21 Does have recurrent UTI - 06/25 Klebsiella Amp R PFSH Medical History BPH (benign prostatic hyperplasia) CKD (chronic kidney disease) GERD (gastroesophageal reflux disease) History of renal calculi Hypertension Impacted cerumen of both ears Impaired glucose tolerance Neurogenic bladder Peripheral vascular disease Self-catheterizes urinary bladder Urinary bladder cancer Surgical History H/O colonoscopy History of biopsy of bladder History of esophagogastroduodenoscopy (EGD) History of lumbar discectomy History of prostate surgery History of throat surgery History of tonsillectomy S/P transurethral resection of prostate Family History Father No problems noted. Mother No problems noted. Son In good health Daughter In good health Social History Housing: House Are you a primary childcare aide to a significant other at home: Yes ( s/p CVA) Do you presently have visiting nurse or other home services: Yes (Private nurse Wednesday+Wednesday 9-5, supportive daughter) Alcohol intake: current Alcohol intake frequency: 0-2 drinks per day Patient Tobacco Use Status: Former Tobacco user Quit Date: Tobacco use type: Cigarette e-Cigarette/Vaping Use: Never Used Second Hand Smoke Exposure: No Advance Directives Date on File: 08/06/20 service: Yes Current occupational status: retired Cognitive needs: No Hearing needs: No Vision needs: Yes Review of Systems Const Denies chills and Denies fever(s) Card Reports no additional complaints and Denies syncope Resp Denies cough GI Denies abdominal pain and Denies heartburn Reports as per HPI and Denies change in libido Neuro Denies syncope Psych Denies change in libido Endo Denies change in libido Physical Exam Const General: cooperative, healthy appearing, comfortable and no acute distress Orientation/consciousness: patient oriented x3 HEENT Face and sinus: Yes normal facial exam Mouth: moist mucous membranes Neck Neck: Yes normal visual inspection, Yes full ROM and Yes trachea midline Chest Chest palpation & inspection: normal inspection of the chest Resp Effort & Inspection: normal respiratory effort, able to speak in complete sentences and no respiratory distress GI Inspection: Yes normal to inspection Back/Spine/Pelvis Cervical Spine: normal cervical lordosis Thoracic/Lumbar Spine: thoracic and lumbar spine normal to inspection Skin General skin exam: no rashes or lesions noted Neuro General: patient oriented x3, gait normal, tone normal and moves all extremities Extrem General: Yes normal to inspection and Yes capillary refill normal Office Procedures Cystoscopy Consent Discussed risk and benefit or proposed procedure with the patient. Information consent for procedure given to the patient. Discussed technical aspects, risks, benefits and alternatives in full. Addressed all of the patient's questions and concerns regarding the procedure. The patient demonstrated knowledge and unders tanding. They wish to proceed with this procedure. Preparation The patient was prepped in the usual manner. A simulation analyst was present and in the room. Genitalia was prepped with betadine solution in a sterile manner. Lidocaine Jelly 2% was placed into the urethra and 16Fr flexible Olympus cystoscope was inserted into the meatus after adequate lubrication. Procedure Meatus circumcised Urethra anterior posterior urethra normal Prostatic Urethra TURP defect Bladder examination with retroflexion of cystoscope Bladder Orifices normal shape and position Bladder Capacity medium Trabeculations moderate Cellule Formation - Diverticulum Formation - Mucosal Erythema - Bladder Tumor right sidewall recurrent superficial [id number] Procedure code (CPT) selection complete Office Meds lidocaine HCl Performing Provider: Roberto Aleman MD Administered by: KULDEEP Haynes on 01/26/23 11:06 Dose Route Admin Location Lot Number Expiration Date [employer] 10 mL intra-urethral nitrofurantoin monohyd/m-cryst 100 mg Performing Provider: Roberto Aleman MD Administered by: KULDEEP Haynes on 01/26/23 11:06 Dose Route Admin Location Lot Number Expiration Date [employer] 100 mg PO Assessment & Plan Assessment & Plan (1) Neurogenic bladder: Code(s): N31.9 - Neuromuscular dysfunction of bladder, unspecified (2) Urinary bladder cancer: Comment: January 2016 BCG done, gemcitabine 2019, cystoscopy every 6 months December [address] Aleman september 2022 Low grade papillary urothelial neoplasm; Code(s): C67.9 - Malignant neoplasm of bladder, unspecified Qualifiers: Bladder location: unspecified site Qualified Code(s): C67.9 - Malignant neoplasm of bladder, unspecified Plan Transurethral resection of bladder tumor with/without adjuvant cytotoxic bladder installation We discussed the nature of the decision and reasonable options for performing the above surgery. Interventions include TURBT with or without intravesical administration of immunotherapy or cytotoxic medication. The relative uncertainties and benefits related to each alternate procedure were adequately discussed. General surgical risks including, but not limited to, pain, bleeding, infection, myocardial infarction, pulmonary embolus, deep vein thrombosis and cerebrovascular accident which may result in further hospitalization were discussed. Full disclosure of the procedure as well as all major risks, benefits and complications were discussed including but not limited to damage to the urethra or bladder neck, need for ureteric stenting, perforation of the bladder, chemical cystitis, chemical peritonitis, epididymitis, and meatal stenosis. The success rate of the procedure was discussed. Success of the procedure in the short-term does not necessarily guarantee that long-term success will be maintained. Suitable follow up will need to be maintained. The patient showed understanding of discussion and wishes to proceed as above. Orders: Orders AMB Cystoscopy Today C67.9 - Malignant neoplasm of bladder, unspecified Patient Instructions: Imaging studies, laboratory and physical exam results were discussed and reviewed in detail. No major barriers to patient understanding were identified. An opportunity to ask questions regarding the treatment plan was provided. All questions were answered. The patient expressed understanding and agreement with the above treatment plan. The patient is aware they should contact our office by phone for worsening of their current condition or the appearance of new urologic symptoms. Compliance is encouraged with any medications and followup testing that is ordered. It is a privilege to participate in the urologic care of your patient. If you have any questions or concerns regarding treatment for the above conditions, or other urologic issues, please do not hesitate to contact me. The office telephone contact is [phone]. This note is constructed using voice recognition software. While every effort has been made to ensure accuracy painter shipyard errors may have been included. Yours sincerely, Dr Roberto Aleman MD, [facility] - Urology Providers of Expert, Compassionate Care for the Genitourinary System Coding Level of Care Code Est Pt Level 4 (53240) Diagnoses Neurogenic bladder N31.9 Urinary bladder cancer C67.9 Bladder location: unspecified site CPT Codes Cystoscopy - CPT: 98212-[id number] ([id number])
== END 2023-01-26 11:50 | disposition home or self-care (01) ==
PROVIDERS: PCP Internal Medicine; Visit Provider Urology
DX: N31.9 Neuromuscular dysfunction of bladder, unspecified (principal); C67.9 Malignant neoplasm of bladder, unspecified
CPT/HCPCS: 52000

== ENCOUNTER → 2023-01-26 10:56 | Outpatient (BNVA) | payer MEDICARE, SELFPAY | PROVIDERS: PCP Internal Medicine; Visit Provider Urology | DX: C67.9 Malignant neoplasm of bladder, unspecified (principal); N31.8 Other neuromuscular dysfunction of bladder; Z79.899 Other long term (current) drug therapy | CPT/HCPCS: 52000 ==

== ENCOUNTER 2023-02-08 12:51 | Outpatient (AMB) | payer MEDICARE, SELFPAY ==
--- NOTE | 2023-02-08 12:55 | A.OFFPC_ITS ---
Vital Signs 02/08/23 12:56 Height 5 ft 10 in Weight 163 lb BMI 23.4 BP 142/72 H Blood Pressure Location Lt brachial Position Sitting Pulse 71 Pulse Source Pulse Oximeter Pulse Oximetry (%) 97 Oxygen Delivery Method Room Air Intake Visit Reasons: Hypertension Allergies No Known Allergies [No Known Allergies*] Allergy (Verified 02/08/23 12:56) Medication List - Last Reconciled 02/08/23 by Gopi Maldonado MD ascorbic acid (vitamin C) 1 g PO DAILY 90 days catheter (Bard Coude Tip Catheter) As directed doxazosin 2 tabs PO BEDTIME methenamine hippurate 1 g PO DAILY 90 days [id number] acid-lutein 400-250 mcg (Centrum Silver) 1 tab PO DAILY potassium,sodium monobas phos 305-700 mg (K-Phos No 2) 1 tab PO DAILY tamsulosin 0.4 mg PO DAILY torsemide 20 mg PO DAILY Tobacco use date assessed: 08/03/22 Fall risk assessment: No Falls in past year Last assessed Fall Risk: 02/08/23 Dental Screening Dental Screen Date: 02/08/23 Did you have a dental visit in the last 12 months?: No Did you have a dental problem in the last 6 months where you did not have access to dental care?: No Was dental information given to patient?: No HPI Hypertension HPI Details [age] Year old male with a history of hypertension impaired glucose tolerance GERD urinary bladder cancer status post fulguration with gemcitabine induction September 2022 and neurogenic bladder coming in for follow-up. Last seen in November 2022 referred to Ophthalmology and added a blood pressure medication hydralazine. Patient follows up with urology last month had cystoscopy planned trans urethral resection of the bladder tumor with and without adjuvant cytotoxic bladder insulation [facility] Medical History BPH (benign prostatic hyperplasia) CKD (chronic kidney disease) GERD (gastroesophageal reflux disease) History of renal calculi Hypertension Impacted cerumen of both ears Impaired glucose tolerance Neurogenic bladder Peripheral vascular disease Self-catheterizes urinary bladder Urinary bladder cancer Surgical History H/O colonoscopy History of biopsy of bladder History of esophagogastroduodenoscopy (EGD) History of lumbar discectomy History of prostate surgery History of throat surgery History of tonsillectomy S/P transurethral resection of prostate Family History Father No problems noted. Mother No problems noted. Son In good health Daughter In good health Social History Housing: House Are you a primary neonatal intensive care unit nurse to a significant other at home: Yes ( s/p CVA) Do you presently have visiting nurse or other home services: Yes (Private nurse Wednesday+Wednesday 9-5, supportive daughter) Alcohol intake: current Alcohol intake frequency: 0-2 drinks per day Patient Tobacco Use Status: Former Tobacco user Quit Date: Tobacco use type: Cigarette e-Cigarette/Vaping Use: Never Used Second Hand Smoke Exposure: No Advance Directives Date on File: 08/06/20 service: Yes Current occupational status: retired Cognitive needs: No Hearing needs: No Vision needs: Yes Questionnaire PHQ-9 Over the last 2 weeks, how often have you been bothered by any of the following problems? 1. Little interest or pleasure in doing things: not at all 2. Feeling down, depressed, or hopeless: not at all 3. Trouble falling or staying asleep, or sleeping too much: several days 4. Feeling tired or having little energy: not at all 5. Poor appetite or overeating: not at all 6. Feeling bad about yourself - or that you are a failure or have let yourself or your family down: not at all 7. Trouble concentrating on things, such as reading the newspaper or watching television: not at all 8. Moving or speaking so slowly that other people could have noticed. Or the opposite - being so fidgety or restless that you have been moving around a lot more than usual: not at all 9. Thoughts that you would be better off or of hurting yourself in some way: not at all Total score: 1 Depression Screening Interpretation: Negative 96918 - PHQ-9 Billing: Yes Source: Developed by Drs. Jason Palencia, Eli White, Carlos Luke and colleagues, with an educational nemesio from [employer]. Thrive Questionnaire Date Thrive assessed: 08/03/22 AUDIT C Alcohol Use Questionnaire (AUDIT-C) 1. How often do you have a drink containing alcohol?: Never 3. How often do you have six or more drinks on one occasion?: Never Total Score: 0 DIANE-7 AMB Questionnaire DIANE-7 Date DIANE - 7 assessed: 07/14/22 Source: Developed by Drs. Jason Palencia, Eli White, Carlos Luke and colleagues, with an educational nemesio from [employer]. Physical exam (Primary Care) Vital Signs: Last Vital Signs Pulse 71 02/08/23 12:56 BP 142/72 H 02/08/23 12:56 Pulse Ox 97 02/08/23 12:56 Oxygen Delivery Method Room Air 02/08/23 12:56 BMI result Body Mass Index 23.4 Tobacco/Smoking Status: Tobacco use Status Tobacco use date assessed 08/03/22 02/08/23 13:00 Patient Tobacco Use Status Former Tobacco user 02/08/23 13:00 Tobacco use type Cigarette 02/08/23 13:00 e-Cigarette/Vaping Use Never Used 02/08/23 13:00 PHQ-9: PHQ-9 Score PHQ-9: Total score 1 02/08/23 17:03 Depression Screening Interpretation: Negative Thrive Assessment: Date of Thrive Assessment Date Thrive assessed 08/03/22 02/08/23 13:00 Const General: alert; No acute distress Eyes Conjunctivae: conjunctivae normal Resp Auscultation: clear to auscultation bilaterally Cardio Rate: regular rate Rhythm: regular rhythm GI Inspection: Yes normal to inspection Extrem General: Yes edema Assessment and Plan Assessment & Plan (1) Hypertension: Code(s): I10 - Essential (primary) hypertension Qualifiers: Hypertension type: essential hypertension Qualified Code(s): I10 - Essential (primary) hypertension Plan: Continue with blood pressure medication. Decrease salt intake and exercise patient is not on hydralazine only. BP controlled at home (2) BPH (benign prostatic hyperplasia): Comment: April 2021 [employer] laser enucleation of the prostate, bladder biopsy with fulguration Code(s): N40.0 - Benign prostatic hyperplasia without lower urinary tract symptoms Qualifiers: Lower urinary tract symptom detail: urinary obstruction Lower urinary tract symptom presence: symptoms present Qualified Code(s): N40.1 - Benign prostatic hyperplasia with lower urinary tract symptoms; N13.8 - Other obstructive and reflux uropathy Plan: Patient is followed up by Urology on tamsulosin 0.4 mg once a day methenamine hippurate doxazosin 2 mg at bedtime (3) Impaired glucose tolerance: Code(s): R73.02 - Impaired glucose tolerance (oral) Plan: Decrease the amount of carbohydrate intake, pasta, bread, rice and potatoes are all sugar and that is aside from all the sweet stuff, remember that fruits are good but they are Sweet also. (4) GERD (gastroesophageal reflux disease): Code(s): K21.9 - Gastro-esophageal reflux disease without esophagitis Qualifiers: Esophagitis presence: without esophagitis Qualified Code(s): K21.9 - Gastro-esophageal reflux disease without esophagitis Plan: Avoid the foods that causes that usually spicy foods, tomato products, juices, coffee, soda and foods that your sensitive to. After eating do not lie down, allow 3-4 hours before in lie down. And keep the head of bed above 30 degrees to avoid the acid from going up. (5) Urinary bladder cancer: Comment: January 2016 BCG done, gemcitabine 2019, cystoscopy every 6 months December [address] Aleman september 2022 Low grade papillary urothelial neoplasm; Code(s): C67.9 - Malignant neoplasm of bladder, unspecified Qualifiers: Bladder location: unspecified site Qualified Code(s): C67.9 - Malignant neoplasm of bladder, unspecified Plan: Patient follows up with urology and just had cystoscopy.. planned TURP (6) Neurogenic bladder: Code(s): N31.9 - Neuromuscular dysfunction of bladder, unspecified Plan: self cath still Orders: Orders Vitamin B12 and Folate Today R73.02 - Impaired glucose tolerance (oral) Comprehensive Met. Panel Today R73.02 - Impaired glucose tolerance (oral) Lipid Panel Today E78.00 - Pure hypercholesterolemia, unspecified, R73.02 - Impaired glucose tolerance (oral) Magnesium Today R73.02 - Impaired glucose tolerance (oral) Phosphorus Today R73.02 - Impaired glucose tolerance (oral) Free T4 (Free Thyroxine) Today R73.02 - Impaired glucose tolerance (oral) Thyroid Stimulating Hormone Today R73.02 - Impaired glucose tolerance (oral) Complete Blood Count Auto Diff Today R73.02 - Impaired glucose tolerance (oral) Medications: Discontinued hydralazine Dr. Velez rx Discontinued Reason: Patient no longer taking 10 mg PO BID 60 tabs 3RF I10 - Essential (primary) hypertension Coding Level of Care Code Est Pt Level 4 (98320) Diagnoses Hypertension I10 Hypertension type: essential hypertension BPH (benign prostatic hyperplasia) N40.1; N13.8 Lower urinary tract symptom detail: urinary obstruction Lower urinary tract symptom presence: symptoms present Impaired glucose tolerance R73.02 GERD (gastroesophageal reflux disease) K21.9 Esophagitis presence: without esophagitis Urinary bladder cancer C67.9 Bladder location: unspecified site Neurogenic bladder N31.9
[2023-02-08 12:56] VITALS: BP 142/72; PULSE 71; O2SAT 97; BMI 23.4
== END 2023-02-08 13:29 | disposition home or self-care (01) ==
PROVIDERS: Visit Provider Internal Medicine
DX: I10 Essential (primary) hypertension (principal); K21.9 Gastro-esophageal reflux disease without esophagitis; C67.9 Malignant neoplasm of bladder, unspecified; N40.1 Benign prostatic hyperplasia with lower urinary tract symptoms; N13.8 Other obstructive and reflux uropathy; R73.02 Impaired glucose tolerance (oral); N31.9 Neuromuscular dysfunction of bladder, unspecified
CPT/HCPCS: 99214

== ENCOUNTER 2023-02-09 10:31 | Outpatient (REF) | payer MEDICARE, SELFPAY ==
[2023-02-09 11:19] LABS: MANUAL DIFF FLAG NO
[2023-02-09 11:46] LABS: Basophils Percent Auto 0.5 % (0-2); Eosinophils Absolute Auto 0.2 X10*3/uL (0.0-0.4); Eosinophils Percent Auto 2.2 % (0-4); Hematocrit 38.8 % (42.0-52.0); Hemoglobin 12.8 g/dl (14.0-18.0); Imm Gran Abs Auto 0.02 X10*3/uL (0.00-0.03); Imm Gran Pct Auto 0.2 % (0.0-0.4); Lymphocytes Absolute Auto 2.6 X10*3/uL (1.2-4.9); Lymphocytes Percent Auto 30.6 % (20-40); Mean Corpuscular Hemoglobin 30.3 pg (27.0-33.0); Mean Corpuscular Volume 91.9 fL (80.0-98.0); Mean Platelet Volume 11.5 fL (9.4-12.4); Monocytes Absolute Auto 0.7 X10*3/uL (0.1-1.2); Monocytes Percent Auto 8.8 % (2-11); Neutrophils Absolute Auto 4.8 x10*3/uL (2.0-8.3); Neutrophils Percent Auto 57.7 % (45-73); Platelet Count 148 X10*3/uL (160-400); Red Blood Count 4.22 X10*6/uL (4.60-5.80); Red Cell Distribution Width 13.5 % (11.0-16.0); White Blood Count 8.3 X10*3/uL (4.8-10.8)
[2023-02-09 13:07] LABS: Alanine Aminotransferase 16 U/L (0-40); Albumin Level 3.9 g/dL (3.5-5.0); Alkaline Phosphatase 43 U/L (39-117); Anion Gap 11 (12-20); Aspartate Amino Transferase 18 U/L (5-37); Bilirubin Total 0.5 mg/dL (0.0-1.0); Blood Urea Nitrogen 31 mg/dL (9-16); Carbon Dioxide 30 mmol/L (22-29); Chloride 108 mmol/L (96-108); Cholesterol 136 mg/dL; Estimated Glomerular Filt Rate > 60; Free T4 (Free Thyroxine) 0.94 ng/dL (0.71-1.85); Glucose Random 95 mg/dL (60-115); HDL Cholesterol 38 mg/dL; LDL Cholesterol Calculated 78 mg/dl; Magnesium 2.2 mg/dL (1.6-2.6); Phosphorus 1.9 mg/dL (2.7-4.5); Sodium 145 mmol/L (135-145); Thyroid Stimulating Hormone 0.74 uIU/mL (0.32-4.0); Total Protein 7.1 g/dL (6.5-8.0); Triglycerides 100 mg/dL
[2023-02-09 13:13] LABS: Folate 16.2 ng/mL (> or = 4.0); Vitamin B12 955 pg/mL (200-900)
== END 2023-02-09 10:32 | disposition home or self-care (01) ==
LOC: HO.WFDLDS 10:31
PROVIDERS: Visit Provider Internal Medicine
DX: R73.02 Impaired glucose tolerance (oral) (principal); E78.00 Pure hypercholesterolemia, unspecified
CPT/HCPCS: 36415; 80053; 80061; 82607; 82746; 83735; 84100; 84439; 84443; 85025

== ENCOUNTER 2023-03-15 09:17 | Outpatient (REF) | payer MEDICARE, SELFPAY ==
[2023-03-15 10:30] LABS: Appearance Urine Clear; Color Urine Yellow; Glucose Urine UA Negative (Negative); Leukocyte Esterase Urine Small (1+) (Negative); Nitrite Urine Negative (Negative); Specific Gravity - Urine 1.015 (1.005-1.025); UMIC TRIGGER UA YES; Urine Blood Trace (Negative); Urine Ketones Negative (Negative); Urine Protein Negative (Neg-Trace)
[2023-03-15 10:33] LABS: Bacteria Urine None Seen (None Seen); Hyaline Casts Urine 0-2 /LPF (0-2); WBC Urine 21-50 /HPF (0-5)
[2023-03-15 10:55] LABS: Anion Gap 11 (12-20); Blood Urea Nitrogen 22 mg/dL (9-16); Carbon Dioxide 27 mmol/L (22-29); Chloride 110 mmol/L (96-108); Estimated Glomerular Filt Rate > 60; Sodium 144 mmol/L (135-145)
[2023-03-15 11:05] LABS: Creatinine Urine 80.76 mg/dL; Microalbum/Creatinine Ratio Ur 79.2 ug/mg cr (<30); Protein/Creatinine Ratio, Ur 0.19 (<0.2); Total Protein Urine Random 15 mg/dL (<12)
== END 2023-03-15 09:18 | disposition home or self-care (01) ==
LOC: HO.10HDL 09:17
PROVIDERS: Visit Provider Internal Medicine Nephrology
DX: I12.9 Hypertensive chronic kidney disease with stage 1 through stage 4 chronic kidney disease, or unspecified chronic kidney disease (principal); N18.31 Chronic kidney disease, stage 3a; N20.0 Calculus of kidney; N31.9 Neuromuscular dysfunction of bladder, unspecified
CPT/HCPCS: 36415; 80051; 81001; 82043; 82310; 82565; 82570; 84156; 84520

== ENCOUNTER 2023-04-05 12:18 | Day surgery (SDC) | payer MEDICARE, SELFPAY ==
[2023-04-01 11:13] VITALS: BMI 23.4
--- NOTE | 2023-04-02 10:10 | HO.ANESPROP2 ---
Documented by User: Michelle Peters NP 04/02/23 10:15 HPI - Anesthesia Eval Consult details Narrative: 87yo M for Cystoscopy & Bladder Biopsy with fulguration and mitomycin s/p cysto 09/2022 with GA-LMA 4 PMFSH Active Problems Active Problems: All Active Problems (Updated 03/09/23 @ 12:15 by Gopi Maldonado MD) COVID-19 virus infection (Acute) Vision changes (Acute) Neurogenic bladder (Acute) Adult general medical exam (Acute) Chronic UTI (urinary tract infection) (Acute) Hypophosphatemia (Acute) Urinary bladder cancer (Acute) GERD (gastroesophageal reflux disease) (Acute) Impaired glucose tolerance (Acute) BPH (benign prostatic hyperplasia) (Acute) Hypertension (Acute) Past Medical History Medical History BPH (benign prostatic hyperplasia) CKD (chronic kidney disease) GERD (gastroesophageal reflux disease) History of renal calculi Hypertension Impacted cerumen of both ears Impaired glucose tolerance Neurogenic bladder Peripheral vascular disease Self-catheterizes urinary bladder Urinary bladder cancer Family History Family History Father No problems noted. Mother No problems noted. Son In good health Daughter In good health Family history of problems with anesthesia: No Surgical History Surgical History H/O colonoscopy History of biopsy of bladder History of esophagogastroduodenoscopy (EGD) History of lumbar discectomy History of prostate surgery History of throat surgery History of tonsillectomy S/P transurethral resection of prostate History of Problems with Anesthesia: No Social History Social History Housing: House Are you a primary certified social workers in health care to a significant other at home: Yes ( s/p CVA) Do you presently have visiting nurse or other home services: Yes (Private nurse Wednesday+Wednesday 9-5, supportive daughter) Alcohol intake: current Alcohol intake frequency: 0-2 drinks per day Patient Tobacco Use Status: Former Tobacco user Quit Date: 45 years Tobacco use type: Cigarette e-Cigarette/Vaping Use: Never Used Second Hand Smoke Exposure: No Use of substances other than those prescribed or required for medical reasons: No Are you DNR?: No Advance Directives: No Advance Directives Information Provided: Yes Advance Directives Date on File: 08/06/20 service: Yes Current occupational status: retired Cognitive needs: No Hearing needs: No Vision needs: Yes Meds Allergies Allergy/AdvReac Type Severity Reaction Status Date / Time No Known Allergies Allergy Verified 02/08/23 12:56 [No Known Allergies*] Home Medications Medication Instructions Recorded Confirmed Last Taken Type multivit with min-folic 1 tab PO DAILY 07/09/20 04/05/23 Unknown History acid-lutein 400 mcg-250 mcg chewable tablet (Centrum Silver) torsemide 20 mg tablet 20 mg PO DAILY 07/09/20 04/05/23 Unknown History doxazosin 2 mg tablet 2 tab PO BEDTIME 09/10/22 04/05/23 Unknown History Exam Exam Date and Time: April 02, 2023 1010 Height,Weight and Vital Signs: Height 5 ft 10 in Weight 73.936 kg Pertinent Lab Results Pertinent Lab Results: Laboratory Tests 02/09/23 03/15/23 10:35 09:26 WBC 8.3 Hgb 12.8 L Hct 38.8 L Plt Count 148 L Sodium 144 Potassium 4.0 Chloride 110 H Carbon Dioxide 27 BUN 22 H Creatinine 1.15 Assessment and Plan Final Anesthetic Review Family History of Problems with Anesthesia: No History of Problems with Anesthesia: No Documented by User: Celso Neves MD 04/05/23 15:09 COUNT INCLUDES THE [facility] Past Medical History Medical History BPH (benign prostatic hyperplasia) CKD (chronic kidney disease) GERD (gastroesophageal reflux disease) History of renal calculi Hypertension Impacted cerumen of both ears Impaired glucose tolerance Neurogenic bladder Peripheral vascular disease Self-catheterizes urinary bladder Urinary bladder cancer Family History Family History Father No problems noted. Mother No problems noted. Son In good health Daughter In good health Surgical History Surgical History H/O colonoscopy History of biopsy of bladder History of esophagogastroduodenoscopy (EGD) History of lumbar discectomy History of prostate surgery History of throat surgery History of tonsillectomy S/P transurethral resection of prostate Social History Social History Housing: House Are you a primary certified social workers in health care to a significant other at home: Yes ( s/p CVA) Do you presently have visiting nurse or other home services: Yes (Private nurse Wednesday+Wednesday-, supportive daughter) Alcohol intake: current Alcohol intake frequency: 0-2 drinks per day Patient Tobacco Use Status: Former Tobacco user Quit Date: 45 years Tobacco use type: Cigarette e-Cigarette/Vaping Use: Never Used Second Hand Smoke Exposure: No Use of substances other than those prescribed or required for medical reasons: No Are you DNR?: No Advance Directives: No Advance Directives Information Provided: Yes Advance Directives Date on File: 08/06/20 service: Yes Current occupational status: retired Cognitive needs: No Hearing needs: No Vision needs: Yes Meds Allergies Allergy/AdvReac Type Severity Reaction Status Date / Time No Known Allergies Allergy Verified 02/08/23 12:56 [No Known Allergies*] Home Medications Medication Instructions Recorded Confirmed Last Taken Type multivit with min-folic 1 tab PO DAILY 07/09/20 04/05/23 Unknown History acid-lutein 400 mcg-250 mcg chewable tablet (Centrum Silver) torsemide 20 mg tablet 20 mg PO DAILY 07/09/20 04/05/23 Unknown History doxazosin 2 mg tablet 2 tab PO BEDTIME 09/10/22 04/05/23 Unknown History Exam Airway Mallampati Class: I TM Dist: >3cm Neck ROM: Full Heart: ok Lungs: ok Assessment and Plan Assessment Anesthesia Assessment: Anesthesia Plan Discussed and Chart Reviewed Final Anesthetic Review NPO: Yes ASA Class: III Final Preanesthetic Review: No Changes in Pt Med Stat, Meds/Allgs Chart Reviewed, Consent Obtained/Reviewed and Anes Risks/Benef Reviewed Patient Risk: Intermediate Procedure Risk: Low Anesthetic Plan Anesthetic Plan: GA and Agree w/ Assess. and Plan Disposition: Standard PACU
[2023-04-05] VITALS (9 sets, daily range): BP systolic 118–168; BP diastolic 36–64; PULSE 50–72; RESP 16–18; TEMP 36.2–36.8; O2SAT 98–100; BMI 21.5
[2023-04-05] MEDS: Lactated Ringers 1,000 ML 50 ML IVCONT (13:46)
--- NOTE | 2023-04-05 14:49 | MHC.SHP ---
Pre-Procedural Eval Section A Date of Service: 04/05/23 The patient is an INPATIENT: No Changes since office visit: No Cold of Flu in the past 2 weeks, No New Medical Problems, No Changes in Medication and No Patient answered all questions The History & Physical has been completed within 30 days and I have reviewed it.: No Section B Chief Complaint: Malignant neoplasm of bladder, unspecified Details of Present Illness: Recurrent?superficial?bladder?cancer Relevant Family History (Specify if Yes): No Relevant Social History: Tobacco Use (Prior) Present Medications: see Short Stay Collaborative assessment Medical History: No relevant PMH History of Previous Operations: Relevant previous surgery/procedure and date(s) Allergies: Allergies Allergy/AdvReac Type Severity Reaction Status Date / Time No Known Allergies Allergy Verified 02/08/23 12:56 [No Known Allergies*] Review of Systems Sugical H&P ROS: Negative: Constitution, Cardiovascular, Respiratory, Neurological, Psychiatric, Hem-Onc, Allergic/Immunologic, Gastrointestinal, Genitourinary, Musculoskeletal, Integumentary, Endocrine and Eyes/Ears/Nose/Throat Exam Surgical H&P Exam: Normal: HEENT, Normal: Heart, Normal: Lungs, Normal: Extremities, Normal: Abdomen, Normal: Skin and Normal: Neurological Plan Diagnosis/Plan: Unchanged (Cystoscopy,?bladder?biopsy,?fulguration,?mitomycin?C) I have reviewed the history and physical and performed a pertinent physical examination on my patient. No changes have occurred unless specified. Time Spent With Patient Time: Total time managing care of this patient today ____ minutes.
--- NOTE | 2023-04-05 15:50 | P.OP_ITS ---
Operative Note Operative Note Date of Service: 04/05/23 Narrative: PreOperative Diagnosis: bladder cancer Post Operative Diagnosis: bladder cancer Procedure: cystoscopy, bladder biopsy, fulguration?extensive Surgeon: Dr Roberto Aleman Anesthesia: ?General Indications for procedure: Superficial bladder cancer. Here for cystoscopy, bladder biopsy. Evaluation. Procedure: After informed consent was verified the patient was brought to the operating room and placed in a supine position. Anesthesia was administered per protocol. The patient was placed in modified dorsal lithotomy position and prepped and draped in a sterile fashion. Safety pause time-out was performed. Antibiotics being given. Cystoscopy was performed. Superficial?bl adder?changes?along?the?right?bladder?sidewall,?right?bladder?neck?running?from? 7:00?to?11:00.?? Biopsies?taken?on?the?superficial?sidewall.??Fulguration?performed?on?multiple?a reas.?? On?evaluation?w ith?cystoscopy?other?areas?were?seen.??Using?narrow?band?imaging?there?were?supe rficial?changes?throughout?bladder. After?biopsy?and?extensive?fulguration?performed?mitomycin-C?medication?instille d.?? Eighteen?Amharic?Atkins?catheter?three-way?placed.??40?mg?of?mitomycin-C?in?20?cc? normal?saline?injected.??Clamp?placed.?? Medication?will?remain?clamped?in?bladder?for?1?hour?prior?to?3?L?normal?silvestre ine?irrigation. The patient tolerated the procedure well. They were extubated in operating room and transferred in stable conditions recovery area. Pathology: Bladder biopsies Drains: As?above?18?Amharic?Atkins?three-way
[2023-04-05] MEDS: oxyCODONE HCl Immed Release 5 MG TABLET 10 MG PO (16:39)
[2023-04-05] MEDS: Acetaminophen 325 MG TABLET 650 MG PO (16:39)
== END 2023-04-05 18:00 | disposition home or self-care (01) ==
PROVIDERS: PCP Internal Medicine; Visit Provider Urology
PROC: (CPT 52204; principal; 2023-04-05 14:10)
DX: C67.9 Malignant neoplasm of bladder, unspecified (principal); N42.32 Atypical small acinar proliferation of prostate; N41.1 Chronic prostatitis; N31.9 Neuromuscular dysfunction of bladder, unspecified; N40.0 Benign prostatic hyperplasia without lower urinary tract symptoms; I12.9 Hypertensive chronic kidney disease with stage 1 through stage 4 chronic kidney disease, or unspecified chronic kidney disease; N18.9 Chronic kidney disease, unspecified; K21.9 Gastro-esophageal reflux disease without esophagitis; Z87.442 Personal history of urinary calculi; Z87.891 Personal history of nicotine dependence; Z79.899 Other long term (current) drug therapy
CPT/HCPCS: 52204; 88305; 88342; 88360; J1956; J3010; J9280

== ENCOUNTER → 2023-04-05 12:18 | Outpatient (BNV) | payer MEDICARE, SELFPAY | PROVIDERS: PCP Internal Medicine; Visit Provider Urology | DX: C67.8 Malignant neoplasm of overlapping sites of bladder (principal) | CPT/HCPCS: 52204 ==

== ENCOUNTER → 2023-04-06 11:16 | Outpatient (BNVA) | payer MEDICARE, SELFPAY | PROVIDERS: PCP Internal Medicine; Visit Provider Urology | DX: N99.820 Postprocedural hemorrhage of a genitourinary system organ or structure following a genitourinary system procedure (principal) | CPT/HCPCS: 51700; 51702 ==

== ENCOUNTER 2023-04-07 07:27 | Emergency (ER) | payer MEDICARE, SELFPAY ==
[2023-04-07 07:52] VITALS: BP 164/64; PULSE 68; RESP 16; TEMP 36.6; O2SAT 99; BMI 22.2
--- NOTE | 2023-04-07 08:48 | ED_ITS ---
HPI - Male Genitourinary General Chief complaint: Urogenital-Male Stated complaint: blocked catheter ? Time Seen by Provider: 04/07/23 08:14 Source: patient Mode of arrival: ambulatory Limitations: no limitations History of Present Illness HPI Narrative: This is 87 years old male presented to emergency department complaining of blocked urinary catheter. He has history of bladder cancer he had a cystoscopy with biopsy on April 05. Complaint: dysuria Onset (ago): day(s) (1) Duration: constant Severity: moderate Related Data Home Medications Medication Instructions Recorded Confirmed multivit with min-folic 1 tab PO DAILY 07/09/20 04/05/23 acid-lutein 400 mcg-250 mcg chewable tablet (Centrum Silver) torsemide 20 mg tablet 20 mg PO DAILY 07/09/20 04/05/23 doxazosin 2 mg tablet 2 tab PO BEDTIME 09/10/22 04/05/23 Previous Rx's Medication Instructions Recorded catheter 16 Fr (Bard Coude Tip #90 ea 05/05/22 Catheter) potassium and sodium monobasic 1 tab PO DAILY #90 tabs 08/03/22 phosphate 305 mg-700 mg tablet (K-Phos No 2) tamsulosin 0.4 mg capsule 0.4 mg PO DAILY #90 caps 01/06/23 ciprofloxacin HCl 250 mg tablet 250 mg PO BID PRN straight cath 02/17/23 #30 tabs levofloxacin 500 mg tablet 500 mg PO DAILY 3 days #3 tabs 02/17/23 methenamine hippurate 1 gram tablet 1 g PO DAILY 90 days #90 tabs 03/24/23 ascorbic acid (vitamin C) 1,000 mg 1 g PO DAILY 90 days #90 tabs 03/30/23 tablet Allergies Allergy/AdvReac Type Severity Reaction Status Date / Time No Known Allergies Allergy Verified 02/08/23 12:56 [No Known Allergies*] Review of Systems 2 Constitutional: Constitutional: Reports no additional constitutional complaints Cardiovascular: Cardiovascular: Reports no additional cardiovascular complaints Neurologic: Reports system reviewed and no additional complaints, except as documented PMFSH Past Medical History Medical History Self-catheterizes urinary bladder Peripheral vascular disease Impacted cerumen of both ears CKD (chronic kidney disease) History of renal calculi Neurogenic bladder GERD (gastroesophageal reflux disease) Urinary bladder cancer Impaired glucose tolerance BPH (benign prostatic hyperplasia) Hypertension Surgical History History of esophagogastroduodenoscopy (EGD) H/O colonoscopy History of prostate surgery History of biopsy of bladder History of throat surgery History of lumbar discectomy History of tonsillectomy S/P transurethral resection of prostate Family History Family History Father No problems noted. Mother No problems noted. Son In good health Daughter In good health Social History Social History Housing: House Are you a primary home health care coordinator to a significant other at home: Yes ( s/p MANNIE) Do you presently have visiting nurse or other home services: Yes (Private nurse Wednesday+Wednesday 9-, supportive daughter) Unable to assess alcohol history related to: Unknown Alcohol intake: never Patient Tobacco Use Status: Former Tobacco user Quit Date: 45 years Tobacco use type: Cigarette Smoked in Last 30 Days: No e-Cigarette/Vaping Use: Never Used Second Hand Smoke Exposure: No Use of substances other than those prescribed or required for medical reasons: No Advance Directives: No Advance Directives Information Provided: Yes Advance Directives Date on File: 08/06/20 service: Yes Current occupational status: retired Cognitive needs: No Hearing needs: No Vision needs: Yes Physical Exam 2 Vital Signs: Vital Signs: Last Vital Signs Temp 97.8 F 04/07/23 07:52 Pulse 68 04/07/23 07:52 Resp 16 04/07/23 07:52 BP 164/64 H 04/07/23 07:52 Pulse Ox 99 04/07/23 07:52 O2 Del Method Room Air 04/07/23 07:52 BMI result Body Mass Index 22.2 Const: Other: He looks well is no toxic-appearing General: cooperative, healthy appearing, well developed and alert N utritional Appearance: average body habitus Orientation/consciousness: p atient oriented x3 Limitations: no limitations HEENT: Head: Yes normal to inspection General nose exam: Normal external nose present Face and sinus: Yes normal facial exam Mouth: Normal oral and palatal mucosa present Neck: Neck: Yes normal visual inspection Thyroid: Thyroid normal Chest: Chest palpation & inspection: normal inspection of the chest Resp: Effort & Inspection: normal respiratory effort Cardio: Jugular venous distension: no JVD Rate: regular rate Rhythm: r egular rhythm GI: Inspection: Yes normal to inspection Percussion: Yes normal to percussion Auscultation: normal bowel sounds Skin: General skin exam: no rashes or lesions noted and elasticity normal L esions: no lesions Rashes: no rashes Neuro: General: patient oriented x3 Course Reevaluation(s) Reevaluation #1: Seen by Dr Aleman Urologist Time: 10:41 Reevaluation #2: urine much clearer ,pt was seen in Ed by DR Aleman(urologist) Time: 12:13 Medications Administered Discontinued Medications Generic Name Dose Route Start Last Admin Trade Name Freq PRN Reason Stop Dose Admin Tranexamic Acid 1,000 mg/ 60 mls @ 360 mls/hr 04/07/23 09:28 04/07/23 10:30 Sodium Chloride IV 04/07/23 09:37 Infused ONCE ONE Infusion Medical Decision Making Differential Diagnosis Differential Diagnoses: The differential diagnosis associated with the presentation includes Patient presented with a block catheter the catheter was placed on Wednesday after cystoscopy and biopsy of the bladder. Will attempt irrigation 1st Admission/Observation Consideration of admission/observation: Escalation of care including admission/observation considered Urinary retention/block catheter Consult Healthcare Provider Management of the patient was discussed with: Coordinator Of Evaluation Dr Aleman Lab Data MDM Lab Attestation statement: I reviewed the patient's lab results. 04/07/23 09:19 04/07/23 09:19 Labs: Lab Results 04/07/23 Range/Units 09:19 WBC 8.4 (4.8-10.8) X10*3/uL RBC 3.67 L (4.60-5.80) X10*6/uL Hgb 11.2 L (14.0-18.0) g/dl Hct 33.7 L (42.0-52.0) % MCV 91.8 (80.0-98.0) fL MCH 30.5 (27.0-33.0) pg MCHC 33.2 (31.0-36.0) g/dl RDW 13.7 (11.0-16.0) % Plt Count 110 L D (160-400) X10*3/uL MPV 11.5 (9.4-12.4) fL Immature Gran % (Auto) 0.4 (0.0-0.4) % Neut % (Auto) 68.1 (45-73) % Lymph % (Auto) 18.8 L (20-40) % [place] % (Auto) 10.2 (2-11) % Eos % (Auto) 2.1 (0-4) % Baso % (Auto) 0.4 (0-2) % Lymph # (Auto) 1.6 (1.2-4.9) X10*3/uL [place] # (Auto) 0.9 (0.1-1.2) X10*3/uL Eos # (Auto) 0.2 (0.0-0.4) X10*3/uL Baso # (Auto) 0.0 (0.0-0.2) X10*3/uL Abs Immat Gran (auto) 0.03 (0.00-0.03) X10*3/uL Absolute Neuts (auto) 5.7 (2.0-8.3) x10*3/uL Absolute Nucleated RBC 0.000 (0.0-0.012) X10*3/uL Nucleated RBC % (auto) 0.0 (0.0-0.2) /100WBC PT 13.7 H (11.1-13.3) SEC INR 1.1 (0.9-1.1) APTT 32.1 (26.0-36.4) SEC Sodium 139 (135-145) mmol/L Potassium 3.9 (3.3-5.1) mmol/L Chloride 111 H (96-108) mmol/L Carbon Dioxide 23 (22-29) mmol/L Anion Gap 9 L (12-20) BUN 15 (9-16) mg/dL Creatinine 0.92 (0.5-1.4) mg/dL Estim Creat Clear Calc 57.3 Estimated GFR > 60 Random Glucose 115 (60-115) mg/dL Calcium 9.4 (8.4-10.2) mg/dL Total Bilirubin 0.6 (0.0-1.0) mg/dL AST 18 (5-37) U/L ALT 13 (0-40) U/L Alkaline Phosphatase 41 (39-117) U/L Total Protein 6.3 L (6.5-8.0) g/dL Albumin 3.5 (3.5-5.0) g/dL Independent Historian Clinical information obtained from an independent historian. History obtained from or confirmed by: Other (daughter) External Record Review External record reviewed: Inpatient record Chronic Conditions bladder ca Discharge Plan Discharge Clinical Impression: Hematuria Patient Disposition: Home, Self-Care Instructions: Hematuria (ED) Prescriptions: No Action (DME) Bard Coude Tip Catheter 16 Fr misc See Rx Instructions .ROUTE .MEDSUPPLY Qty: 90 11RF Rx Instructions: As directed tamsulosin 0.4 mg capsule 0.4 mg PO DAILY Qty: 90 1RF levofloxacin 500 mg tablet 500 mg PO DAILY 3 Days Qty: 3 0RF Rx Instructions: to be taken day before, day of and day after procedure ciprofloxacin HCl 250 mg tablet 250 mg PO BID PRN (Reason: straight cath) Qty: 30 0RF methenamine hippurate 1 gram tablet 1 g PO DAILY 90 Days Qty: 90 1RF ascorbic acid (vitamin C) 1,000 mg tablet 1 g PO DAILY 90 Days Qty: 90 1RF doxazosin 2 mg tablet 2 tab PO BEDTIME torsemide 20 mg tablet 20 mg PO DAILY Centrum Silver 400-250 mcg tablet,chewable 1 tab PO DAILY K-Phos No 2 305-700 mg tablet 1 tab PO DAILY Qty: 90 2RF lidocaine HCl 2 % jelly in applicator 10 ml intra-urethral ONCE Qty: 10 0RF Referrals: Roberto Aleman MD [Physician] - 2 days
[2023-04-07 09:23] LABS: MANUAL DIFF FLAG NO
[2023-04-07 09:31] LABS: Basophils Percent Auto 0.4 % (0-2); Eosinophils Absolute Auto 0.2 X10*3/uL (0.0-0.4); Eosinophils Percent Auto 2.1 % (0-4); Hematocrit 33.7 % (42.0-52.0); Hemoglobin 11.2 g/dl (14.0-18.0); Imm Gran Abs Auto 0.03 X10*3/uL (0.00-0.03); Imm Gran Pct Auto 0.4 % (0.0-0.4); Lymphocytes Absolute Auto 1.6 X10*3/uL (1.2-4.9); Lymphocytes Percent Auto 18.8 % (20-40); Mean Corpuscular HGB Conc 33.2 g/dl (31.0-36.0); Mean Corpuscular Hemoglobin 30.5 pg (27.0-33.0); Mean Corpuscular Volume 91.8 fL (80.0-98.0); Mean Platelet Volume 11.5 fL (9.4-12.4); Monocytes Absolute Auto 0.9 X10*3/uL (0.1-1.2); Monocytes Percent Auto 10.2 % (2-11); Neutrophils Absolute Auto 5.7 x10*3/uL (2.0-8.3); Neutrophils Percent Auto 68.1 % (45-73); Platelet Count 110 X10*3/uL (160-400); Red Blood Count 3.67 X10*6/uL (4.60-5.80); Red Cell Distribution Width 13.7 % (11.0-16.0); White Blood Count 8.4 X10*3/uL (4.8-10.8)
[2023-04-07 09:35] LABS: INTERNATIONAL NORM RATIO 1.1 (0.9-1.1); Prothrombin Time 13.7 SEC (11.1-13.3)
[2023-04-07 09:38] LABS: Alanine Aminotransferase 13 U/L (0-40); Albumin Level 3.5 g/dL (3.5-5.0); Alkaline Phosphatase 41 U/L (39-117); Anion Gap 9 (12-20); Aspartate Amino Transferase 18 U/L (5-37); Bilirubin Total 0.6 mg/dL (0.0-1.0); Blood Urea Nitrogen 15 mg/dL (9-16); Calcium 9.4 mg/dL (8.4-10.2); Carbon Dioxide 23 mmol/L (22-29); Chloride 111 mmol/L (96-108); Creatinine Clr Calc Pharmacy 57.3; Estimated Glomerular Filt Rate > 60; Glucose Random 115 mg/dL (60-115); Partial Thromboplastin Time 32.1 SEC (26.0-36.4); Potassium 3.9 mmol/L (3.3-5.1); Sodium 139 mmol/L (135-145); Total Protein 6.3 g/dL (6.5-8.0)
[2023-04-07] MEDS: Tranexamic Acid 1,000 MG in 0.9 % Sodium Chloride 50 ML 360 MG IV (10:17)
--- NOTE | 2023-04-07 11:16 | PC.NURSE ---
Report and handover of care to RICO Rashid.
--- NOTE | 2023-04-07 15:48 | P.CNUR_ITS ---
History of Present Illness Consult details Consult date: 04/07/23 Narrative: CC: Persistent hematuria with clots following bladder procedure 87-year-old male Underwent bladder biopsy fulguration with mitomycin-C on Wednesday Persistent hematuria in catheter Catheter changed yesterday in office with 20 [place] silicon placed He was given tranexamic acid 1 mg IV approximately 90 minutes prior to examination This appears to have significantly reduced bleeding Clots irrigated Decision made to discharge with oral tranexamic acid for 3-4 days He will call if persists Review of Systems 2 Constitutional: Constitutional: Reports as per HPI and Reports no additional constitutional complaints Cardiovascular: Cardiovascular: Reports as per HPI and Reports no additional cardiovascular complaints Respiratory: Respiratory: Reports as per HPI and Reports no additional respiratory complaints Gastrointestinal: Gastrointestinal: Reports as per HPI and Reports no additional gastrointestinal complaints Genitourinary: Genitourinary: Reports as per HPI Musculoskeletal: Musculoskeletal: Reports no additional musculoskeletal complaints and Reports as per HPI Neurologic: Reports system reviewed and no additional complaints, except as documented and Reports as per HPI PMFSH Past Medical History Medical History Self-catheterizes urinary bladder Peripheral vascular disease Impacted cerumen of both ears CKD (chronic kidney disease) History of renal calculi Neurogenic bladder GERD (gastroesophageal reflux disease) Urinary bladder cancer Impaired glucose tolerance BPH (benign prostatic hyperplasia) Hypertension Family History Family History Father No problems noted. Mother No problems noted. Son In good health Daughter In good health Surgical History Surgical History History of esophagogastroduodenoscopy (EGD) H/O colonoscopy History of prostate surgery History of biopsy of bladder History of throat surgery History of lumbar discectomy History of tonsillectomy S/P transurethral resection of prostate Social History Social History Housing: House Are you a primary critical care unit manager to a significant other at home: Yes ( s/p CVA) Do you presently have visiting nurse or other home services: Yes (Private nurse Wednesday+Wednesday 9-5, supportive daughter) Unable to assess alcohol history related to: Unknown Alcohol intake: never Patient Tobacco Use Status: Former Tobacco user Quit Date: 45 years Tobacco use type: Cigarette Smoked in Last 30 Days: No e-Cigarette/Vaping Use: Never Used Second Hand Smoke Exposure: No Use of substances other than those prescribed or required for medical reasons: No Advance Directives: No Advance Directives Information Provided: Yes Advance Directives Date on File: 08/06/20 service: Yes Current occupational status: retired Cognitive needs: No Hearing needs: No Vision needs: Yes Meds Allergies Allergy/AdvReac Type Severity Reaction Status Date / Time No Known Allergies Allergy Verified 02/08/23 12:56 [No Known Allergies*] Home Medications Medication Instructions Recorded Confirmed Last Taken Type multivit with min-folic 1 tab PO DAILY 07/09/20 04/05/23 Unknown History acid-lutein 400 mcg-250 mcg chewable tablet (Centrum Silver) torsemide 20 mg tablet 20 mg PO DAILY 07/09/20 04/05/23 1 Day Ago History ~04/06/23 doxazosin 2 mg tablet 2 tab PO BEDTIME 09/10/22 04/05/23 Unknown History Physical Exam 2 Vital Signs: Vital Signs: Last Vital Signs Temp 97.8 F 04/07/23 07:52 Pulse 68 04/07/23 07:52 Resp 16 04/07/23 07:52 BP 164/64 H 04/07/23 07:52 Pulse Ox 99 04/07/23 07:52 O2 Del Method Room Air 04/07/23 07:52 BMI result Body Mass Index 22.2 Const: General: cooperative, healthy appearing, comfortable and no acute distress Orientation/consciousness: patient oriented x3 HEENT: Face and sinus: Yes normal facial exam Mouth: moist mucous membranes Neck: Neck: Yes normal visual inspection, Yes full ROM and Yes trachea midline Chest: Chest palpation & inspection: normal inspection of the chest Resp: Effort & Inspection: normal respiratory effort, able to speak in complete sentences and no respiratory distress GI: Inspection: Yes normal to inspection Back/Spine/Pelvis: Cervical Spine: normal cervical lordosis Thoracic/Lumbar Spine: thoracic and lumbar spine normal to inspection Skin: General skin exam: no rashes or lesions noted Neuro: General: patient oriented x3, tone normal and moves all extremities Extrem: General: Yes normal to inspection and Yes capillary refill normal Results Labs 04/07/23 09:19 04/07/23 09:19 Labs: Abnormal lab results 04/07/23 Range/Units 09:19 RBC 3.67 L (4.60-5.80) X10*6/uL Hgb 11.2 L (14.0-18.0) g/dl Hct 33.7 L (42.0-52.0) % Plt Count 110 L D (160-400) X10*3/uL Lymph % (Auto) 18.8 L (20-40) % PT 13.7 H (11.1-13.3) SEC Chloride 111 H (96-108) mmol/L Anion Gap 9 L (12-20) Total Protein 6.3 L (6.5-8.0) g/dL Short CBC 04/07/23 Range/Units 09:19 WBC 8.4 (4.8-10.8) X10*3/uL Hgb 11.2 L (14.0-18.0) g/dl Hct 33.7 L (42.0-52.0) % Plt Count 110 L D (160-400) X10*3/uL BMP 04/07/23 09:19 Sodium 139 Potassium 3.9 Chloride 111 H Carbon Dioxide 23 BUN 15 Creatinine 0.92 Calcium 9.4 Liver Function 04/07/23 Range/Units 09:19 Total Bilirubin 0.6 (0.0-1.0) mg/dL AST 18 (5-37) U/L ALT 13 (0-40) U/L Alkaline Phosphatase 41 (39-117) U/L Albumin 3.5 (3.5-5.0) g/dL All other labs normal. Assessment and Plan (1) Hematuria: Qualifiers: Hematuria type: gross Qualified Code(s): R31.0 - Gross hematuria Status: Acute Plan TXA oral prescription Time Spent With Patient Time: Total time managing care of this patient today ____ minutes. Procedures Date of Service Date of Service: 04/07/23
== END 2023-04-07 12:28 | disposition home or self-care (01) ==
PROVIDERS: Emergency Provider Emergency Medicine; PCP Internal Medicine
DX: R31.0 Gross hematuria (principal); Z87.891 Personal history of nicotine dependence; Z79.899 Other long term (current) drug therapy
CPT/HCPCS: 36415; 80053; 85025; 85610; 85730; 99283; 99284

== ENCOUNTER → 2023-04-07 08:07 | Outpatient (BNV) | payer MEDICARE, SELFPAY | PROVIDERS: Emergency Provider Emergency Medicine; PCP Internal Medicine; Visit Provider Urology | DX: R31.0 Gross hematuria (principal) | CPT/HCPCS: 99283 ==

== ENCOUNTER → 2023-04-09 10:16 | Outpatient (BNVA) | payer MEDICARE, SELFPAY | PROVIDERS: PCP Internal Medicine; Visit Provider Urology ==

== ENCOUNTER → 2023-04-14 09:43 | Outpatient (BNVA) | payer MEDICARE, SELFPAY | PROVIDERS: PCP Internal Medicine; Visit Provider Urology ==

== ENCOUNTER 2023-04-15 11:08 | Day surgery (SDC) | payer MEDICARE, SELFPAY ==
[2023-04-15 11:12] VITALS: BP 124/42; PULSE 74; RESP 18; TEMP 36.6; O2SAT 97
[2023-04-15 11:21] VITALS: BMI 22.4
--- NOTE | 2023-04-15 11:23 | PC.NURSE ---
no meds takne today patient st cath self at 1100
[2023-04-15] MEDS: Lactated Ringers 1,000 ML 50 ML IVCONT (11:36)
--- NOTE | 2023-04-15 12:25 | P.CONAN_ITS ---
HPI - Anesthesia Eval Consult details Narrative: for cysto PMFSH Active Problems Active Problems: All Active Problems (Updated 04/08/23 @ 00:01 by Lawrence Dang) COVID-19 virus infection (Acute) Vision changes (Acute) Neurogenic bladder (Acute) Adult general medical exam (Acute) Chronic UTI (urinary tract infection) (Acute) Hypophosphatemia (Acute) Urinary bladder cancer (Acute) GERD (gastroesophageal reflux disease) (Acute) Impaired glucose tolerance (Acute) BPH (benign prostatic hyperplasia) (Acute) Hypertension (Acute) Past Medical History Medical History Self-catheterizes urinary bladder Peripheral vascular disease Impacted cerumen of both ears CKD (chronic kidney disease) History of renal calculi Neurogenic bladder GERD (gastroesophageal reflux disease) Urinary bladder cancer Impaired glucose tolerance BPH (benign prostatic hyperplasia) Hypertension Family History Family History Father No problems noted. Mother No problems noted. Son In good health Daughter In good health Family history of problems with anesthesia: No Surgical History Surgical History History of esophagogastroduodenoscopy (EGD) H/O colonoscopy History of prostate surgery History of biopsy of bladder History of throat surgery History of lumbar discectomy History of tonsillectomy S/P transurethral resection of prostate History of Problems with Anesthesia: No Social History Social History Housing: House Are you a primary care process manager to a significant other at home: Yes ( s/p CVA) Do you presently have visiting nurse or other home services: Yes (Private nurse Wednesday+Wednesday 9-5, supportive daughter) Unable to assess alcohol history related to: Unknown Alcohol intake: never Patient Tobacco Use Status: Former Tobacco user Quit Date: 45 years Tobacco use type: Cigarette e-Cigarette/Vaping Use: Never Used Second Hand Smoke Exposure: No Are you DNR?: No Advance Directives: No Advance Directives Information Provided: Yes Advance Directives Date on File: 08/06/20 service: Yes Current occupational status: retired Cognitive needs: No Hearing needs: No Vision needs: Yes Meds Allergies Allergy/AdvReac Type Severity Reaction Status Date / Time No Known Allergies Allergy Verified 02/08/23 12:56 [No Known Allergies*] Active Medications: Current Medications Lactated Ringer's (Lr) 1,000 mls @ 50 mls/hr IVCONT .Q20H TIARA Last Admin: 04/15/23 11:36 Dose: 50 mls/hr Home Medications Medication Instructions Recorded Confirmed Last Taken Type multivit with min-folic 1 tab PO DAILY 07/09/20 04/05/23 Unknown History acid-lutein 400 mcg-250 mcg chewable tablet (Centrum Silver) torsemide 20 mg tablet 20 mg PO DAILY 07/09/20 04/05/23 1 Day Ago History ~04/06/23 doxazosin 2 mg tablet 2 tab PO BEDTIME 09/10/22 04/05/23 Unknown History Exam Exam Date and Time: April 15, 2023 1225 Height,Weight and Vital Signs: Height 5 ft 10 in Weight 70.76 kg Last Vital Signs Temp 97.9 F 04/15/23 11:12 Pulse 74 04/15/23 11:12 Resp 18 04/15/23 11:12 BP 124/42 L 04/15/23 11:12 Pulse Ox 97 04/15/23 11:12 O2 Del Method Room Air 04/15/23 11:12 Airway Mallampati Class: II TM Dist: >3cm Neck ROM: Limited Heart: rrr Lungs: cta Assessment and Plan Assessment Anesthesia Assessment: Anesthesia Plan Discussed and Chart Reviewed Final Anesthetic Review Family History of Problems with Anesthesia: No History of Problems with Anesthesia: No NPO: Yes ASA Class: III Final Preanesthetic Review: No Changes in Pt Med Stat, Meds/Allgs Chart Reviewed, Consent Obtained/Reviewed and Anes Risks/Benef Reviewed Patient Risk: Intermediate Procedure Risk: Low Anesthetic Plan Anesthetic Plan: GA Disposition: Standard PACU
--- NOTE | 2023-04-15 12:37 | MHC.SHP ---
Pre-Procedural Eval Section A Date of Service: 04/15/23 The patient is an INPATIENT: No Changes since office visit: No Cold of Flu in the past 2 weeks, No New Medical Problems, No Changes in Medication and No Patient answered all questions The History & Physical has been completed within 30 days and I have reviewed it.: No Section B Chief Complaint: Malignant neoplasm of bladder, unspecified Relevant Social History: None Present Medications: see Short Stay Collaborative assessment Medical History: Significant History History of Previous Operations: Relevant previous surgery/procedure and date(s) Allergies: Allergies Allergy/AdvReac Type Severity Reaction Status Date / Time No Known Allergies Allergy Verified 02/08/23 12:56 [No Known Allergies*] Review of Systems Sugical H&P ROS: Negative: Constitution, Cardiovascular, Respiratory, Neurological, Psychiatric, Hem-Onc, Allergic/Immunologic, Gastrointestinal, Genitourinary, Musculoskeletal, Integumentary, Endocrine and Eyes/Ears/Nose/Throat Exam Surgical H&P Exam: Normal: HEENT, Normal: Heart, Normal: Lungs, Normal: Extremities, Normal: Abdomen, Normal: Skin and Normal: Neurological Plan Diagnosis/Plan: Unchanged (Cysto fulgeration) I have reviewed the history and physical and performed a pertinent physical examination on my patient. No changes have occurred unless specified. Time Spent With Patient Time: Total time managing care of this patient today ____ minutes.
--- NOTE | 2023-04-15 13:38 | W.PM.OPN ---
Operative Note Operative Note Date of Service: 04/15/23 Narrative: PreOperative Diagnosis: hematuria Post Operative Diagnosis: hematuria with ooze Procedure: cystoscopy, Evacuation, fulguration Surgeon: Dr Roberto Aleman Anesthesia: protocol Indications for procedure: persistent hematuria following TURBT Procedure: After informed consent was verified the patient was brought to the operating room and placed in a supine position. Anesthesia was administered per protocol. The patient was prepped and draped in a sterile fashion. Safety pause time-out was performed. Antibiotics being given. 6 cystoscopy performed. Organized clot seen within bladder. Clot evacuation performed. Once conditions in the bladder with stabilize the bladder was examined. Small ooze was seen in areas with prior clot on the wall. Fulguration was performed. Further clot was removed fulguration was performed in multiple areas over the bladder floor he tolerated the procedure well was transferred to the recovery Pathology: [] Drains: []
[2023-04-15 13:40] VITALS: BP 126/51; PULSE 79; RESP 16; TEMP 36.6; O2SAT 99
[2023-04-15 13:45] VITALS: BP 126/51; PULSE 78; RESP 14; O2SAT 98
[2023-04-15 13:50] VITALS: BP 125/51; PULSE 71; RESP 16; O2SAT 98
[2023-04-15 13:55] VITALS: BP 121/49; PULSE 73; RESP 16; O2SAT 98
[2023-04-15 14:10] VITALS: BP 136/52; PULSE 67; RESP 16; TEMP 36.6; O2SAT 98
== END 2023-04-15 14:53 | disposition home or self-care (01) ==
PROVIDERS: PCP Internal Medicine; Visit Provider Urology
PROC: 0T5B8ZZ Destruction of Bladder, Via Natural or Artificial Opening Endoscopic (ICD-10-PCS; CPT 52214; principal; 2023-04-15 12:00)
DX: C67.9 Malignant neoplasm of bladder, unspecified (principal); N02.9 Recurrent and persistent hematuria with unspecified morphologic changes; Z87.442 Personal history of urinary calculi; I12.9 Hypertensive chronic kidney disease with stage 1 through stage 4 chronic kidney disease, or unspecified chronic kidney disease; N18.9 Chronic kidney disease, unspecified; R73.02 Impaired glucose tolerance (oral); N40.0 Benign prostatic hyperplasia without lower urinary tract symptoms; I73.9 Peripheral vascular disease, unspecified; Z79.899 Other long term (current) drug therapy; Z98.890 Other specified postprocedural states; Z87.891 Personal history of nicotine dependence
CPT/HCPCS: 52214; 52001; J0131; J1100; J1956; J2405; J3010

== ENCOUNTER → 2023-04-15 11:08 | Outpatient (BNV) | payer MEDICARE, SELFPAY | PROVIDERS: PCP Internal Medicine; Visit Provider Urology | DX: R31.9 Hematuria, unspecified (principal) | CPT/HCPCS: 52001 ==

== ENCOUNTER 2023-04-20 08:58 | Outpatient (AMB) | payer MEDICARE, SELFPAY ==
--- NOTE | 2023-04-20 08:58 | A.OFFVIS_ITS ---
Intake Intake Visit Reasons: Bladder bx results Intake Note: Patient presents today via telephone for Bladder Bx Results Urology Med: Doxazosin,Methenamine, Tamsulosin Antibiotic Allergy:None Blood Thinner: None Sock Turner Required: No Accompanied by: Self / Same As Patient Allergies No Known Allergies [No Known Allergies*] Allergy (Verified 04/20/23 09:00) Medication List - Last Reconciled 04/20/23 by Roberto Aleman MD ascorbic acid (vitamin C) 1 g PO DAILY 90 days catheter (Bard Coude Tip Catheter) As directed ciprofloxacin HCl 250 mg PO BID PRN doxazosin 2 tabs PO BEDTIME methenamine hippurate 1 g PO DAILY 90 days yc-gup-skikx acid-lutein 400-250 mcg (Centrum Silver) 1 tab PO DAILY oxybutynin chloride 5 mg PO BID 5 days potassium,sodium monobas phos 305-700 mg (K-Phos No 2) 1 tab PO DAILY tamsulosin 0.4 mg PO DAILY torsemide 20 mg PO DAILY HPI HPI Comments History of Present Illness Details Jason is a pleasant male. He is a patient of Dr. Valdivia. He is seen for the following urologic issues - bladder cancer - neurogenic bladder requiring self cath eterization Telemedicine Evaluation 15 min Consultation [employer] Osman Video attempted Recurrent superficial bladder cancer Likely secondary to combination of neurogenic bladder with workplace exposure Slowly resolving hematuria Do cipro for 3 days Bladder cancer - 03/27 fulguration Initial diagnosis with Dr. Kay Pathology - recurrent low-grade noninvasive bladder cancer EORTC risk - intermediate TURBT - 12/24 fulguration - gemcitabine, 09/24 fulgeration MMC, 03/27 biopsy with MMC - post procedure persistant bleeding requiring repeat fulgeration Immunotherapy - induction BCG and boost gemcitabine Cystoscopy 07/25 NAD, 04/24 inflammation, 11/23 superficial recurrence One year of smoking history, did work at [employer] for 2 years as younger male Neurogenic bladder Uses self catheterization TURP late - Regrowth left side GreenLight laser April 2021 PSA 02/22 2.21 Does have recurrent UTI - 06/25 Klebsiella Amp R PFSH Medical History Self-catheterizes urinary bladder Peripheral vascular disease Impacted cerumen of both ears CKD (chronic kidney disease) History of renal calculi Neurogenic bladder GERD (gastroesophageal reflux disease) Urinary bladder cancer Impaired glucose tolerance BPH (benign prostatic hyperplasia) Hypertension Surgical History History of esophagogastroduodenoscopy (EGD) H/O colonoscopy History of prostate surgery History of biopsy of bladder History of throat surgery History of lumbar discectomy History of tonsillectomy S/P transurethral resection of prostate Family History Father No problems noted. Mother No problems noted. Son In good health Daughter In good health Social History Housing: House Are you a primary adult daycare coordinator to a significant other at home: Yes ( s/p CVA) Do you presently have visiting nurse or other home services: Yes (Private nurse Wednesday+Wednesday 9-5, supportive daughter) Unable to assess alcohol history related to: Unknown Alcohol intake: never Patient Tobacco Use Status: Former Tobacco user Quit Date: 45 years Tobacco use type: Cigarette e-Cigarette/Vaping Use: Never Used Second Hand Smoke Exposure: No Advance Directives Date on File: 08/06/20 service: Yes Current occupational status: retired Cognitive needs: No Hearing needs: No Vision needs: Yes Review of Systems Const All systems reviewed & are unremarkable except as noted in HPI and below Reports no additional complaints Resp Reports no additional complaints GI Reports no additional complaints Reports as per HPI Musc Reports no additional complaints Physical Exam Telemedicine evaluation Appropriate responses Regular breathing rate and rhythm HEENT Head: Yes normal to inspection Ears: hearing grossly normal bilaterally Eyes General: appearance normal, both eyes and all related structures Neck Neck: Yes normal visual inspection Chest Chest palpation & inspection: normal inspection of the chest Resp Effort & Inspection: normal respiratory effort and able to speak in complete sentences Assessment & Plan Assessment & Plan (1) Neurogenic bladder: Code(s): N31.9 - Neuromuscular dysfunction of bladder, unspecified (2) Urinary bladder cancer: Comment: January 2016 BCG done, gemcitabine 2019, cystoscopy every 6 months December [address] Aleman september 2022 Low grade papillary urothelial neoplasm; Code(s): C67.9 - Malignant neoplasm of bladder, unspecified Qualifiers: Bladder location: unspecified site Qualified Code(s): C67.9 - Malignant neoplasm of bladder, unspecified Plan Hematuria resolving 4 month follow-up office cystoscopy May do short course ciprofloxacin Patient Instructions: Imaging studies, laboratory and physical exam results were discussed and reviewed in detail. No major barriers to patient understanding were identified. An opportunity to ask questions regarding the treatment plan was provided. All questions were answered. The patient expressed understanding and agreement with the above treatment plan. The patient is aware they should contact our office by phone for worsening of their current condition or the appearance of new urologic symptoms. Compliance is encouraged with any medications and followup testing that is ordered. It is a privilege to participate in the urologic care of your patient. If you have any questions or concerns regarding treatment for the above conditions, or other urologic issues, please do not hesitate to contact me. The office telephone contact is [phone]. This note is constructed using voice recognition software. While every effort has been made to ensure accuracy psychology associate errors may have been included. Yours sincerely, Dr Roberto Aleman MD, TOM [facility] - Urology Providers of Expert, Compassionate Care for the Genitourinary System Telehealth Telehealth Location of provider rendering services: practice address Location of patient: address on file Patient Identification confirmed using: Name, : Yes Telehealth method: video Patient verbally consented to treatment: Yes Patient verbally consented to billing insurance company: Yes Patient informed of any privacy concerns related to visit: Yes Coding Level of Care Code Tele Est Pt Level 3 (63423) Diagnoses Neurogenic bladder N31.9 Malignant neoplasm of urinary bladder, unspecified site C67.9 Bladder location: unspecified site
== END 2023-04-20 10:19 | disposition home or self-care (01) ==
LOC: HO.HUSH 08:58
PROVIDERS: PCP Internal Medicine; Visit Provider Urology
DX: N31.9 Neuromuscular dysfunction of bladder, unspecified (principal); C67.9 Malignant neoplasm of bladder, unspecified
CPT/HCPCS: 99213

== ENCOUNTER → 2023-04-20 08:58 | Outpatient (BNVA) | payer MEDICARE, SELFPAY | PROVIDERS: PCP Internal Medicine; Visit Provider Urology ==

== ENCOUNTER 2023-06-04 14:57 | Outpatient (AMB) | payer MEDICARE, SELFPAY ==
--- NOTE | 2023-06-04 15:05 | AM.OFFVISNUR ---
Intake Intake Visit Reasons: Flu Shot Allergies No Known Allergies [No Known Allergies*] Allergy (Verified 04/20/23 09:00) Office Procedures Flu Questionnaire Does the patient have a severe egg allergy?: No Does the patient have severe life threatening allergies?: No Does the patient have a fever or illness today?: No Has the patient ever had Guillain-Laveen Syndrome?: No Has the patient ever had any past reaction to a flu shot?: No Immunizations flu vacc [id number] 6mos up(PF) 60 mcg(15 mcgx4)/0.5 mL IM syringe Performing Provider: Gopi Maldonado MD Performing Location: [facility] Administered by: KULDEEP Pal on 06/04/23 15:05 Dose Route Admin Location Dispensed Lot Number Expiration Date NDC Supply Chain Manager 0.5 mL IM Left Deltoid 0.5 mL [id number] 01/02/24 35116-098-86 [facility] Given Date VIS Provided VIS Publication Date 06/04/23 Single Vaccine 21 Eligibility Eligibility Date Funding Source Not [facility] Eligible 06/04/23 Private Coding Assessment & Plan Assessment & Plan Orders: Orders Influenza [id number] Immunization Today Z23 - Encounter for immunization
== END 2023-06-04 17:42 | disposition home or self-care (01) ==
LOC: HO.HMGH 14:57
PROVIDERS: PCP Internal Medicine; Visit Provider Internal Medicine
DX: Z23 Encounter for immunization (principal)
CPT/HCPCS: 90471; 90686

== ENCOUNTER 2023-09-29 10:52 | Outpatient (AMB) | payer MEDICARE, SELFPAY ==
--- NOTE | 2023-09-29 11:12 | MHC.OFFVIS ---
Intake Intake Visit Reasons: 4m/cysto(Confirmed) Intake Note: Patient presents today for a Cystoscopy Meds: Tamsulosin, Oxybutinin, methenamine hippurate, Vitamin C Allergies to Antibiotic: No Known Allergies Blood Thinner: None Urinalysis test clear for Cysto? No urine was provided in today's visit Disposable Uro-G Cystoscope Cannula: Exp: 04/29/2026 Lot: [id number] Workers Compensation Administrator Required: No Accompanied by: Self / Same As Patient Allergies No Known Allergies [No Known Allergies*] Allergy (Verified 09/29/23 11:14) Medication List - Last Reconciled 09/29/23 by Roberto Aleman MD ascorbic acid (vitamin C) 1 g PO DAILY 90 days catheter (Bard Coude Tip Catheter) As directed ciprofloxacin HCl 250 mg PO BID PRN methenamine hippurate 1 g PO DAILY 90 days ok-ujp-cmlfz acid-lutein 400-250 mcg (Centrum Silver) 1 tab PO DAILY oxybutynin chloride 5 mg PO BID 5 days potassium,sodium monobas phos 305-700 mg (K-Phos No 2) 1 tab PO DAILY tamsulosin 0.4 mg PO DAILY 90 days torsemide 20 mg PO DAILY HPI HPI Comments History of Present Illness Details Jason is a pleasant male. He is a patient of Dr. Valdivia. He is seen for the following urologic issues - bladder cancer - neurogenic bladder requiring self catheterization Here for cystoscopy Recurrent superficial bladder cancer Likely secondary to combination of neurogenic bladder with workplace exposure Low-grade Add methenamine for self catheterization Three-week boost mitomycin C with cytarabine Bladder cancer - 03/27 fulguration Initial diagnosis with Dr. Kay Pathology - recurrent low-grade noninvasive bladder cancer EORTC risk - intermediate TURBT - 12/24 fulguration - gemcitabine, 09/24 fulgeration MMC - low grade bladder cancer - 03/27 biopsy with MMC - post procedure persistant bleeding requiring repeat fulgeration Immunotherapy - induction BCG and boost gemcitabine Cystoscopy 07/25 NAD, 04/24 inflammation, 11/23 superficial recurrence One year of smoking history, did work at [employer] for 2 years as younger male Neurogenic bladder Uses self catheterization TURP late - Regrowth left side GreenLight laser April 2021 PSA 02/22 2.21 Does have recurrent UTI - 06/25 Klebsiella Amp R PFSH Medical History Self-catheterizes urinary bladder Peripheral vascular disease Impacted cerumen of both ears CKD (chronic kidney disease) History of renal calculi Neurogenic bladder GERD (gastroesophageal reflux disease) Urinary bladder cancer Impaired glucose tolerance BPH (benign prostatic hyperplasia) Hypertension Surgical History History of esophagogastroduodenoscopy (EGD) H/O colonoscopy History of prostate surgery History of biopsy of bladder History of throat surgery History of lumbar discectomy History of tonsillectomy S/P transurethral resection of prostate Family History Father No problems noted. Mother No problems noted. Son In good health Daughter In good health Social History Housing: House Are you a primary health care coordinator to a significant other at home: Yes ( s/p CVA) Do you presently have visiting nurse or other home services: Yes (Private nurse Wednesday+Wednesday 9-5, supportive daughter) Unable to assess alcohol history related to: Unknown Alcohol intake: never Patient Tobacco Use Status: Former Tobacco user Quit Date: 45 years Tobacco use type: Cigarette e-Cigarette/Vaping Use: Never Used Second Hand Smoke Exposure: No Advance Directives Date on File: 08/06/20 service: Yes Current occupational status: retired Cognitive needs: No Hearing needs: No Vision needs: Yes Office Procedures Cystoscopy Consent Discussed risk and benefit or proposed procedure with the patient. Information consent for procedure given to the patient. Discussed technical aspects, risks, benefits and alternatives in full. Addressed all of the patient's questions and concerns regarding the procedure. The patient demonstrated knowledge and understanding. They wish to proceed with this procedure. Preparation The patient was prepped in the usual manner. A lining strap closer was present and in the room. Genitalia was prepped with betadine solution in a sterile manner. Lidocaine Jelly 2% was placed into the urethra and 16Fr flexible Olympus cystoscope was inserted into the meatus after adequate lubrication. Procedure Meatus uncircumcised Urethra anterior and posterior urethra normal Prostatic Urethra prior TURP defect Bladder examination with retroflexion of cystoscope Bladder Orifices normal shape and position Bladder Capacity medium Trabeculations grade 2/3 Cellule Formation - Diverticulum Formation - Mucosal Erythema - Bladder Tumor superficial recurrent left sidewall [id number] DISPOSABLE SCOPE URO-G FLEXIBLE SCOPE Procedure code (CPT) selection complete Office Meds lidocaine HCl 2 % mucosal jelly in applicator Performing Provider: Roberto Aleman MD Performing Location: [facility] [place] [facility] Administered by: Guero Coombs LPN on 09/29/23 11:25 Dose Route Admin Location Dispensed Lot Number Expiration Date ND Shipping Point Inspector 10 mL intra-urethral 10 mL nitrofurantoin monohydrate/macrocrystals 100 mg capsule Performing Provider: Roberto Aleman MD Performing Location: [facility] [place] [facility] Administered by: Guero Coombs LPN on 09/29/23 11:25 Dose Route Admin Location Dispensed Lot Number Expiration Date ND Shipping Point Inspector 100 mg PO 1 cap naproxen 500 mg tablet Performing Provider: Roberto Aleman MD Performing Location: [facility] [place] [facility] Administered by: Guero Coombs LPN on 09/29/23 11:25 Dose Route Admin Location Dispensed Lot Number Expiration Date ND Shipping Point Inspector 500 mg PO 1 tab Assessment & Plan Assessment & Plan (1) Urinary bladder cancer: Comment: January 2016 BCG done, gemcitabine 2019, cystoscopy every 6 months December [address] Aleman september 2022 Low grade papillary urothelial neoplasm; Code(s): C67.9 - Malignant neoplasm of bladder, unspecified Qualifiers: Bladder location: unspecified site Qualified Code(s): C67.9 - Malignant neoplasm of bladder, unspecified (2) BPH (benign prostatic hyperplasia): Comment: April 2021 GreenLight laser enucleation of the prostate, bladder biopsy with fulguration Code(s): N40.0 - Benign prostatic hyperplasia without lower urinary tract symptoms Qualifiers: Lower urinary tract symptom presence: symptoms present Lower urinary tract symptom detail: urinary obstruction Qualified Code(s): N40.1 - Benign prostatic hyperplasia with lower urinary tract symptoms; N13.8 - Other obstructive and reflux uropathy Plan Planned 3 weeks of MMC and cytarabine 3m f/u cystoscopy Orders: Orders AMB Cystoscopy Today N31.9 - Neuromuscular dysfunction of bladder, unspecified, N39.0 - Urinary tract infection, site not specified, N40.0 - Benign prostatic hyperplasia without lower urinary tract symptoms Patient Instructions: Imaging studies, laboratory and physical exam results were discussed and reviewed in detail. No major barriers to patient understanding were identified. An opportunity to ask questions regarding the treatment plan was provided. All questions were answered. The patient expressed understanding and agreement with the above treatment plan. The patient is aware they should contact our office by phone for worsening of their current condition or the appearance of new urologic symptoms. Compliance is encouraged with any medications and followup testing that is ordered. It is a privilege to participate in the urologic care of your patient. If you have any questions or concerns regarding treatment for the above conditions, or other urologic issues, please do not hesitate to contact me. The office telephone contact is [phone]. This note is constructed using voice recognition software. While every effort has been made to ensure accuracy hydramatic specialist errors may have been included. Yours sincerely, Dr Roberto Aleman MD, T[facility] - Urology Providers of Expert, Compassionate Care for the Genitourinary System Coding Level of Care Code Est Pt Level 3 (61589) Diagnoses Malignant neoplasm of urinary bladder, unspecified site C67.9 Bladder location: unspecified site Benign prostatic hyperplasia with urinary obstruction N40.1; N13.8 Lower urinary tract symptom presence: symptoms present Lower urinary tract symptom detail: urinary obstruction CPT Codes Cystoscopy - CPT: [id number] ([id number])
== END 2023-09-29 11:36 | disposition home or self-care (01) ==
PROVIDERS: PCP Internal Medicine; Visit Provider Urology
DX: C67.9 Malignant neoplasm of bladder, unspecified (principal); N40.1 Benign prostatic hyperplasia with lower urinary tract symptoms; N39.0 Urinary tract infection, site not specified; N31.9 Neuromuscular dysfunction of bladder, unspecified; N13.8 Other obstructive and reflux uropathy
CPT/HCPCS: 52000; 99213

== ENCOUNTER → 2023-09-29 10:52 | Outpatient (BNVA) | payer MEDICARE, SELFPAY | PROVIDERS: PCP Internal Medicine; Visit Provider Urology | DX: C67.9 Malignant neoplasm of bladder, unspecified (principal); N40.1 Benign prostatic hyperplasia with lower urinary tract symptoms; N13.8 Other obstructive and reflux uropathy; N31.9 Neuromuscular dysfunction of bladder, unspecified; N39.0 Urinary tract infection, site not specified; Z96.0 Presence of urogenital implants; Z79.899 Other long term (current) drug therapy | CPT/HCPCS: 52000; 99212 ==

== ENCOUNTER 2023-12-10 16:00 | Outpatient (AMB) | payer MEDICARE, SELFPAY ==
--- NOTE | 2023-12-10 16:07 | A.OFFVIS_ITS ---
Intake Visit Reasons: Catheter Concerns follow up(Issue resolved) Intake Note: Patient is present for Tele follow up Allergies No Known Allergies [No Known Allergies*] Allergy (Verified 12/30/23 11:01) Medication List - Last Reconciled 12/10/23 by Roberto Aleman MD ascorbic acid (vitamin C) 1 g PO DAILY 90 days catheter (Bard Coude Tip Catheter) As directed ciprofloxacin HCl 250 mg PO BID PRN methenamine hippurate 1 g PO DAILY 90 days yx-woq-spmzc acid-lutein 400-250 mcg (Centrum Silver) 1 tab PO DAILY oxybutynin chloride 5 mg PO BID 5 days potassium,sodium monobas phos 305-700 mg (K-Phos No 2) 1 tab PO DAILY tamsulosin 0.4 mg PO DAILY 90 days torsemide 20 mg PO DAILY HPI Comments Details: Jason is a pleasant male. He is a patient of Dr. Valdivia. He is seen for the following urologic issues - bladder cancer - neurogenic bladder requiring self catheterization Telemedicine Evaluation 15 min Consultation [employer] Osman Video attempted Stable with self catheterization Plan cysto 4 months Bladder cancer - 03/27 fulguration Initial diagnosis with Dr. Kay Pathology - recurrent low-grade noninvasive bladder cancer EORTC risk - intermediate TURBT - 12/24 fulguration - gemcitabine, 09/24 fulgeration MMC - low grade bladder cancer - 03/27 biopsy with MMC - post procedure persistant bleeding requiring repeat fulgeration Immunotherapy - induction BCG and boost gemcitabine Cystoscopy 07/25 NAD, 04/24 inflammation, 11/23 superficial recurrence One year of smoking history, did work at [employer] for 2 years as younger male Neurogenic bladder Uses self catheterization TURP late - Regrowth left side GreenLight laser April 2021 PSA 02/22 2.21 Does have recurrent UTI - 06/25 Klebsiella Amp R PFSH Medical History Self-catheterizes urinary bladder Peripheral vascular disease Impacted cerumen of both ears CKD (chronic kidney disease) History of renal calculi Neurogenic bladder GERD (gastroesophageal reflux disease) Urinary bladder cancer Impaired glucose tolerance BPH (benign prostatic hyperplasia) Hypertension Surgical History History of esophagogastroduodenoscopy (EGD) H/O colonoscopy History of prostate surgery History of biopsy of bladder History of throat surgery History of lumbar discectomy History of tonsillectomy S/P transurethral resection of prostate Family History Father No problems noted. Mother No problems noted. Son In good health Daughter In good health Social History Housing: House Are you a primary career technical education teacher to a significant other at home: Yes ( s/p CVA) Do you presently have visiting nurse or other home services: Yes (Private nurse Wednesday+Wednesday 9-5, supportive daughter) Unable to assess alcohol history related to: Unknown Alcohol intake: never Patient Tobacco Use Status: Former Tobacco user Tobacco use type: Cigarette e-Cigarette/Vaping Use: Never Used Second Hand Smoke Exposure: No Advance Directives Date on File: 08/06/20 service: Yes Current occupational status: retired Cognitive needs: No Hearing needs: No Vision needs: Yes Review of Systems Const All systems reviewed & are unremarkable except as noted in HPI and below Reports no additional complaints Resp Reports no additional complaints GI Reports no additional complaints Reports as per HPI Musc Reports no additional complaints Physical Exam Telemedicine evaluation Appropriate responses Regular breathing rate and rhythm HEENT Head: Yes normal to inspection Ears: hearing grossly normal bilaterally Eyes General: appearance normal, both eyes and all related structures Neck Neck: Yes normal visual inspection Chest Chest palpation & inspection: normal inspection of the chest Resp Effort & Inspection: normal respiratory effort and able to speak in complete sentences Telehealth Tele[facility] Location of provider rendering services: practice address Location of patient: address on file Patient Identification confirmed using: Name, : Yes Telehealth method: video Patient verbally consented to treatment: Yes Patient verbally consented to billing insurance company: Yes Patient informed of any privacy concerns related to visit: Yes Minutes spent on Phone/Video with Pt.: 15 Assessment & Plan Assessment & Plan (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 No major barriers to patient understanding were identified. An opportunity to ask questions regarding the treatment plan was provided. All questions were answered. The patient expressed understanding and agreement with the above treatment plan. The patient is aware they should contact our office by phone for worsening of their current condition or the appearance of new urologic symptoms. Compliance is encouraged with any medications and followup testing that is ordered. It is a privilege to participate in the urologic care of your patient. If you have any questions or concerns regarding treatment for the above conditions, or other urologic issues, please do not hesitate to contact me. The office telephone contact is [phone]. This note is constructed using voice recognition software. While every effort has been made to ensure accuracy transcription coordinator errors may have been included. Yours sincerely, Dr Roberto Aleman MD, T[facility] - Urology Providers of Expert, Compassionate Care for the Genitourinary System Coding Level of Care Code Tele Est Pt Level 3 (87855) Diagnoses Cystitis cystica N30.80
== END 2023-12-10 16:21 | disposition home or self-care (01) ==
LOC: HO.HUSH 16:00
PROVIDERS: PCP Internal Medicine; Visit Provider Urology
DX: N30.80 Other cystitis without hematuria (principal)
CPT/HCPCS: 99213

== ENCOUNTER → 2023-12-10 16:00 | Outpatient (BNVA) | payer MEDICARE, SELFPAY | PROVIDERS: PCP Internal Medicine; Visit Provider Urology ==

== ENCOUNTER 2023-12-30 10:51 | Outpatient (AMB) | payer MEDICARE, SELFPAY ==
--- NOTE | 2023-12-30 10:59 | MHC.OFFVIS ---
Intake Visit Reasons: cysto Intake Note: Patient is present for Cystoscopy Urology Medication:ciprofloxacin,ascorbic acid,methenamine hippurate,tamulosin,catheter,oxybutynin Antibiotic Allergy:none Blood Thinner:none Lot: Exp: Inspector Material Disposition Required: No Allergies No Known Allergies [No Known Allergies*] Allergy (Verified 12/30/23 11:01) HPI Comments Details: Jason is a pleasant male. He is a patient of Dr. Valdivia. He is seen for the following urologic issues - bladder cancer - neurogenic bladder requiring self catheterization Here for cystoscopy - had infection at prior visit Has methenamine for self catheterization Cystitis cystica Continue surveillance Bladder cancer - 03/27 fulguration Initial diagnosis with Dr. Kay Pathology - recurrent low-grade noninvasive bladder cancer EORTC risk - intermediate TURBT - 12/24 fulguration - gemcitabine, - 09/24 fulgeration [facility] - low grade bladder cancer - 04/26 biopsy with [facility] - post procedure persistant bleeding requiring repeat fulgeration Immunotherapy - induction BCG and boost gemcitabine - 09/25 3 week boost Cystoscopy - 07/25 NAD - 04/24 inflammation - 11/23 superficial recurrence One year of smoking history, did work at [employer] for 2 years as younger male Neurogenic bladder Uses self catheterization TURP late - Regrowth left side GreenLight laser April 2021 PSA 02/22 2.21 Does have recurrent UTI - 06/25 Klebsiella Amp R PFSH Medical History Self-catheterizes urinary bladder Peripheral vascular disease Impacted cerumen of both ears CKD (chronic kidney disease) History of renal calculi Neurogenic bladder GERD (gastroesophageal reflux disease) Urinary bladder cancer Impaired glucose tolerance BPH (benign prostatic hyperplasia) Hypertension Surgical History History of esophagogastroduodenoscopy (EGD) H/O colonoscopy History of prostate surgery History of biopsy of bladder History of throat surgery History of lumbar discectomy History of tonsillectomy S/P transurethral resection of prostate Family History Father No problems noted. Mother No problems noted. Son In good health Daughter In good health Social History Housing: House Are you a primary medicare compliance auditor to a significant other at home: Yes ( s/p ALLIEA) Do you presently have visiting nurse or other home services: Yes (Private nurse Wednesday+Wednesday 9-5, supportive daughter) Unable to assess alcohol history related to: Unknown Alcohol intake: never Patient Tobacco Use Status: Former Tobacco user Tobacco use type: Cigarette e-Cigarette/Vaping Use: Never Used Second Hand Smoke Exposure: No Advance Directives Date on File: 08/06/20 service: Yes Current occupational status: retired Cognitive needs: No Hearing needs: No Vision needs: Yes Office Procedures Cystoscopy Consent Discussed risk and benefit or proposed procedure with the patient. Information consent for procedure given to the patient. Discussed technical aspects, risks, benefits and alternatives in full. Addressed all of the patient's questions and concerns regarding the procedure. The patient demonstrated knowledge and understanding. They wish to proceed with this procedure. Preparation The patient was prepped in the usual manner. A street light repairer was present and in the room. Genitalia was prepped with betadine solution in a sterile manner. Lidocaine Jelly 2% was placed into the urethra and 16Fr flexible Olympus cystoscope was inserted into the meatus after adequate lubrication. Procedure Cystoscopy performed using a disposable Urovue digital 16 Uruguayan cystoscope. Meatus circumcised Urethra anterior and posterior urethra normal Prostatic Urethra TURP defect Bladder examination with retroflexion of cystoscope Bladder Orifices normal shape and position Bladder Capacity large Trabeculations grade 1 Cellule Formation - Diverticulum Formation - Mucosal Erythema mucosal changes consistent with cystitis cystica and inflammation Bladder Tumor - [id number] DISPOSABLE SCOPE URO-G FLEXIBLE SCOPE Procedure code (CPT) selection complete Office Meds lidocaine HCl 2 % mucosal jelly in applicator Performing Provider: Roberto Aleman MD [place] [facility] [place] [facility] Administered by: Everton Aparicio RN on 12/30/23 11:35 Dose Route Admin Location Dispensed Lot Number Expiration Date [facility] Supervisor Inspection 10 mL intra-urethral 10 mL nitrofurantoin monohydrate/macrocrystals 100 mg capsule Performing Provider: Roberto Aleman MD [place]forming [place] [facility] [place] [facility] Administered by: Everton Aparicio RN on 12/30/23 11:35 Dose Route Admin Location Dispensed Lot Number Expiration Date NDC Supervisor Inspection 100 mg PO 1 cap naproxen 500 mg tablet Performing Provider: Roberto Aleman MD [place] [facility] [place] [facility] Administered by: Everton Aparicio RN on 12/30/23 11:35 Dose Route Admin Location Dispensed Lot Number Expiration Date NDC Supervisor Inspection 500 mg PO 1 tab Assessment & Plan Assessment & Plan (1) Neurogenic bladder: Code(s): N31.9 - Neuromuscular dysfunction of bladder, unspecified Category: Medical (2) Cystitis cystica: Code(s): N30.80 - Other cystitis without hematuria Category: Medical (3) Urinary bladder cancer: Comment: January 2016 BCG done, gemcitabine 2019, cystoscopy every 6 months December [address] Aleman september 2022 Low grade papillary urothelial neoplasm; Code(s): C67.9 - Malignant neoplasm of bladder, unspecified Category: Medical Qualifiers: Bladder location: unspecified site Qualified Code(s): C67.9 - Malignant neoplasm of bladder, unspecified Plan Continue three-month interval surveillance Orders: Orders AMB Cystoscopy Today C67.9 - Malignant neoplasm of bladder, unspecified, N13.8 - Other obstructive and reflux uropathy, N31.9 - Neuromuscular dysfunction of bladder, unspecified, N40.1 - Benign prostatic hyperplasia with lower urinary tract symptoms Patient Instructions: Imaging studies, laboratory and physical exam results were discussed and reviewed in detail. No major barriers to patient understanding were identified. An opportunity to ask questions regarding the treatment plan was provided. All questions were answered. The patient expressed understanding and agreement with the above treatment plan. The patient is aware they should contact our office by phone for worsening of their current condition or the appearance of new urologic symptoms. Compliance is encouraged with any medications and followup testing that is ordered. It is a privilege to participate in the urologic care of your patient. If you have any questions or concerns regarding treatment for the above conditions, or other urologic issues, please do not hesitate to contact me. The office telephone contact is [phone]. This note is constructed using voice recognition software. While every effort has been made to ensure accuracy final finisher forging dies errors may have been included. Yours sincerely, Dr Roberto Aleman MD, [facility] - Urology Providers of Expert, Compassionate Care for the Genitourinary System Coding Level of Care Code Est Pt Level 3 (36831) Diagnoses Neurogenic bladder N31.9 Cystitis cystica N30.80 Malignant neoplasm of urinary bladder, unspecified site C67.9 Bladder location: unspecified site CPT Codes Cystoscopy - CPT: 41720-[id number] ([id number])
== END 2023-12-30 11:59 | disposition home or self-care (01) ==
PROVIDERS: PCP Internal Medicine; Visit Provider Urology
DX: C67.9 Malignant neoplasm of bladder, unspecified (principal); N31.9 Neuromuscular dysfunction of bladder, unspecified; N40.1 Benign prostatic hyperplasia with lower urinary tract symptoms; N13.8 Other obstructive and reflux uropathy; N30.80 Other cystitis without hematuria
CPT/HCPCS: 52000

== ENCOUNTER → 2023-12-30 10:51 | Outpatient (BNVA) | payer MEDICARE, SELFPAY | PROVIDERS: PCP Internal Medicine; Visit Provider Urology | DX: C67.9 Malignant neoplasm of bladder, unspecified (principal); N31.9 Neuromuscular dysfunction of bladder, unspecified; N30.80 Other cystitis without hematuria | CPT/HCPCS: 52000 ==

== ENCOUNTER 2024-04-07 12:51 | Outpatient (REF) | payer MEDICARE, SELFPAY | END 2024-04-07 12:52 | disposition home or self-care (01) | LOC: HO.LAB 12:51 | PROVIDERS: PCP Internal Medicine; Visit Provider Urology | DX: C67.9 Malignant neoplasm of bladder, unspecified (principal); N40.1 Benign prostatic hyperplasia with lower urinary tract symptoms; N13.8 Other obstructive and reflux uropathy | CPT/HCPCS: 52000; 81003; 88121; 99212 ==

== ENCOUNTER 2024-04-07 12:51 | Outpatient (AMB) | payer MEDICARE, SELFPAY ==
--- NOTE | 2024-04-07 13:10 | MHC.OFFVIS ---
Intake Visit Reasons: Cystoscopy(Bladder Ca) Intake Note: Patient is Present for Cystoscopy Urology Med: Vitamin C, Methenamine, Tamsulosin, Oxybutynin Antibiotic Allergy:None Blood Thinner:None URO- G Disposable Cystoscope lot:[id number] exp:10/13/2026 Accompanied by: Self / Same As Patient Allergies No Known Allergies [No Known Allergies*] Allergy (Verified 04/07/24 13:20) Medication List - Last Reconciled 04/07/24 by Roberto Aleman MD ascorbic acid (vitamin C) 1 g PO DAILY 90 days catheter (Bard Coude Tip Catheter) As directed ciprofloxacin HCl 250 mg PO BID PRN methenamine hippurate 1 g PO DAILY 90 days co-bgm-inbyk acid-lutein 400-250 mcg (Centrum Silver) 1 tab PO DAILY oxybutynin chloride 5 mg PO BID 5 days potassium,sodium monobas phos 305-700 mg (K-Phos No 2) 1 tab PO DAILY tamsulosin 0.4 mg PO DAILY 90 days torsemide 20 mg PO DAILY HPI Comments Details: Jason is a pleasant male. He is a patient of Dr. Valdivia. He is seen for the following urologic issues - bladder cancer - neurogenic bladder requiring self catheterization Here for cystoscopy Clear Has had issues using straight catheterization Will try coude He will call if successful Has methenamine for self catheterization Cystitis cystica Continue surveillance Bladder cancer - 03/27 fulguration - 09/24 recurrent low-grade Initial diagnosis with Dr. Kay Pathology - recurrent low-grade noninvasive bladder cancer EORTC risk - intermediate TURBT - 12/24 fulguration - gemcitabine, - 09/24 fulgeration [facility] - low grade bladder cancer - 04/26 biopsy with [facility] - post procedure persistant bleeding requiring repeat fulgeration Immunotherapy - induction BCG and boost gemcitabine - 09/25 3 week boost Cystoscopy - 07/25 NAD - 04/24 inflammation - 11/23 superficial recurrence One year of smoking history, did work at [employer] for 2 years as younger male Neurogenic bladder Uses self catheterization TURP late - Regrowth left side GreenLight laser April 2021 PSA 02/22 2.21 Does have recurrent UTI - 06/25 Klebsiella Amp R PFSH Medical History Self-catheterizes urinary bladder Peripheral vascular disease Impacted cerumen of both ears CKD (chronic kidney disease) History of renal calculi Neurogenic bladder GERD (gastroesophageal reflux disease) Urinary bladder cancer Impaired glucose tolerance BPH (benign prostatic hyperplasia) Hypertension Surgical History History of esophagogastroduodenoscopy (EGD) H/O colonoscopy History of prostate surgery History of biopsy of bladder History of throat surgery History of lumbar discectomy History of tonsillectomy S/P transurethral resection of prostate Family History Father No problems noted. Mother No problems noted. Son In good health Daughter In good health Social History Housing: House Are you a primary multi care technician to a significant other at home: Yes ( s/p CVA) Do you presently have visiting nurse or other home services: Yes (Private nurse Wednesday+Wednesday 9-, supportive daughter) Unable to assess alcohol history related to: Unknown Alcohol intake: never Patient Tobacco Use Status: Former Tobacco user Tobacco use type: Cigarette e-Cigarette/Vaping Use: Never Used Second Hand Smoke Exposure: No Advance Directives Date on File: 08/06/20 service: Yes Current occupational status: retired Cognitive needs: No Hearing needs: No Vision needs: Yes Review of Systems Const Denies chills and Denies fever(s) Card Reports no additional complaints and Denies syncope Resp Denies cough GI Denies abdominal pain and Denies heartburn Reports as per HPI and Denies change in libido Neuro Denies syncope Psych Denies change in libido Endo Denies change in libido Physical Exam Const General: cooperative, healthy appearing, comfortable and no acute distress Orientation/consciousness: patient oriented x3 HEENT Face and sinus: Yes normal facial exam Mouth: moist mucous membranes Neck Neck: Yes normal visual inspection, Yes full ROM and Yes trachea midline Chest Chest palpation & inspection: normal inspection of the chest Resp Effort & Inspection: normal respiratory effort, able to speak in complete sentences and no respiratory distress GI Inspection: Yes normal to inspection Back/Spine/Pelvis Cervical Spine: normal cervical lordosis Thoracic/Lumbar Spine: thoracic and lumbar spine normal to inspection Skin General skin exam: no rashes or lesions noted Neuro General: patient oriented x3, gait normal, tone normal and moves all extremities Extrem General: Yes normal to inspection and Yes capillary refill normal Office Procedures Cystoscopy Consent Discussed risk and benefit or proposed procedure with the patient. Information consent for procedure given to the patient. Discussed technical aspects, risks, benefits and alternatives in full. Addressed all of the patient's questions and concerns regarding the procedure. The patient demonstrated knowledge and understanding. They wish to proceed with this procedure. Preparation The patient was prepped in the usual manner. A replenisher was present and in the room. Genitalia was prepped with betadine solution in a sterile manner. Lidocaine Jelly 2% was placed into the urethra and 16Fr flexible Olympus cystoscope was inserted into the meatus after adequate lubrication. Procedure Cystoscopy performed using a disposable Urovue digital 16 Portuguese cystoscope. Meatus normal position Urethra anterior and posterior urethra normal, annular stricture Prostatic Urethra unremarkable Bladder examination with retroflexion of cystoscope Bladder Orifices normal shape and position Bladder Capacity median Trabeculations grade 2 Cellule Formation - Diverticulum Formation - Mucosal Erythema cystitis cystica Bladder Tumor - [id number] DISPOSABLE SCOPE URO-G FLEXIBLE SCOPE Procedure code (CPT) selection complete Office Meds lidocaine HCl 2 % mucosal jelly in applicator Performing Provider: Roberto Aleman MD Performing Location: [facility] [place] [facility] Administered by: Guero Coombs LPN on 04/07/24 13:28 Dose Route Admin Location Dispensed Lot Number Expiration Date NDC Paint Roller Assembler 10 mL intra-urethral 10 mL nitrofurantoin monohydrate/macrocrystals 100 mg capsule Performing Provider: Roberto Aleman MD Performing Location: [facility] [place] [facility] Administered by: Guero Coombs LPN on 04/07/24 13:28 Dose Route Admin Location Dispensed Lot Number Expiration Date NDC Paint Roller Assembler 100 mg PO 1 cap naproxen 500 mg tablet Performing Provider: Roberto Aleman MD Performing Location: [facility] [place] [facility] Administered by: Guero Coombs LPN on 04/07/24 13:28 Dose Route Admin Location Dispensed Lot Number Expiration Date NDC Paint Roller Assembler 500 mg PO 1 tab Results AMB Urinalysis, Automated UA Leukoctes 125 [place]/uL Last Edit by KULDEEP Haynes on 04/07/24 13:24 UA Nitrite Negative Last Edit by Demetria Mosquera, A on 04/07/24 13:24 UA Urobilinogen 0.2 mg/dL Last Edit by Demetria Mosquera A on 04/07/24 13:24 UA Protein 30 mg/dL Last Edit by Demetria Mosquera, A on 04/07/24 13:24 UA pH 6.5 Last Edit by Demetria Mosquera, A on 04/07/24 13:24 UA Blood 25 Bora/uL Last Edit by Demetria Mosquera, A on 04/07/24 13:24 UA Specific Apex 1.010 Last Edit by Demetria Mosquera, A on 04/07/24 13:24 UA Ketone Negative Last Edit by Demetria Mosquera A on 04/07/24 13:24 UA Bilirubin 0 mg/dL Last Edit by Demetria Mosquera A on 04/07/24 13:24 UA Glucose 0 mg/dL Last Edit by Demetria Mosquera A on 04/07/24 13:24 Results Reviewed Results Reviewed: Laboratory Last Values Urine pH (Auto) 6.5 04/07/24 13:18 Specific Apex (Auto) 1.010 04/07/24 13:18 Urine Protein (Auto) 30 mg/dL 04/07/24 13:18 Glucose (UA)(Auto) 0 mg/dL 04/07/24 13:18 Urine Ketones (Auto) Negative 04/07/24 13:18 Urine Blood (Auto) 25 Bora/uL 04/07/24 13:18 Urine Nitrite (Auto) Negative 04/07/24 13:18 Urine Bilirubin (Auto) 0 mg/dL 04/07/24 13:18 Urine Urobilinogen (Auto) 0.2 mg/dL 04/07/24 13:18 Leukocyte Esterase (Auto) 125 [place]/uL 04/07/24 13:18 Assessment & Plan Assessment & Plan (1) BPH (benign prostatic hyperplasia): Comment: April 2021 GreenLight laser enucleation of the prostate, bladder biopsy with fulguration Code(s): N40.0 - Benign prostatic hyperplasia without lower urinary tract symptoms Category: Medical Qualifiers: Lower urinary tract symptom presence: symptoms present Lower urinary tract symptom detail: urinary obstruction Qualified Code(s): N40.1 - Benign prostatic hyperplasia with lower urinary tract symptoms; N13.8 - Other obstructive and reflux uropathy (2) Urinary bladder cancer: Comment: January 2016 BCG done, gemcitabine 2019, cystoscopy every 6 months December [address] Aleman september 2022 Low grade papillary urothelial neoplasm; Code(s): C67.9 - Malignant neoplasm of bladder, unspecified Category: Medical Qualifiers: Bladder location: unspecified site Qualified Code(s): C67.9 - Malignant neoplasm of bladder, unspecified Plan Interval surveillance Orders: Orders AMB Cystoscopy 04/07/24 C67.9 - Malignant neoplasm of bladder, unspecified FISH Bladder Cancer 04/07/24 C67.9 - Malignant neoplasm of bladder, unspecified AMB Urinalysis Automated 04/07/24 Z13.9 - Encounter for screening, unspecified, C67.9 - Malignant neoplasm of bladder, unspecified Patient Instructions: Imaging studies, laboratory and physical exam results were discussed and reviewed in detail. No major barriers to patient understanding were identified. An opportunity to ask questions regarding the treatment plan was provided. All questions were answered. The patient expressed understanding and agreement with the above treatment plan. The patient is aware they should contact our office by phone for worsening of their current condition or the appearance of new urologic symptoms. Compliance is encouraged with any medications and followup testing that is ordered. It is a privilege to participate in the urologic care of your patient. If you have any questions or concerns regarding treatment for the above conditions, or other urologic issues, please do not hesitate to contact me. The office telephone contact is [phone]. This note is constructed using voice recognition software. While every effort has been made to ensure accuracy hydrometer finisher errors may have been included. Yours sincerely, Dr Roberto Aleman MD, [facility] - Urology Providers of Expert, Compassionate Care for the Genitourinary System Coding Level of Care Code Est Pt Level 3 (51673) Diagnoses Benign prostatic hyperplasia with urinary obstruction N40.1; N13.8 Lower urinary tract symptom presence: symptoms present Lower urinary tract symptom detail: urinary obstruction Malignant neoplasm of urinary bladder, unspecified site C67.9 Bladder location: unspecified site CPT Codes Cystoscopy - CPT: [id number] ([id number])
== END 2024-04-07 14:06 | disposition home or self-care (01) ==
PROVIDERS: PCP Internal Medicine; Visit Provider Urology
DX: N40.1 Benign prostatic hyperplasia with lower urinary tract symptoms (principal); N13.8 Other obstructive and reflux uropathy; C67.9 Malignant neoplasm of bladder, unspecified
CPT/HCPCS: 52000; 99213

== ENCOUNTER 2024-04-28 13:14 | Outpatient (AMB) | payer MEDICARE, SELFPAY ==
--- NOTE | 2024-04-28 13:15 | AM.OFFVISNUR ---
Intake Visit Reasons: flu shot Turret Punch Operator Required: No Accompanied by: Spouse Allergies No Known Allergies [No Known Allergies*] Allergy (Verified 04/07/24 13:20) Office Procedures Flu Questionnaire Does the patient have a severe egg allergy?: No Does the patient have severe life threatening allergies?: No Does the patient have a fever or illness today?: No Has the patient ever had Guillain-[place] Syndrome?: No Has the patient ever had any past reaction to a flu shot?: No Assessment & Plan Assessment & Plan Orders: Orders Influenza [id number] Immunization Today Z23 - Encounter for immunization Medications: New Fluarix Triv [id number] (PF) (flu vacc [id number] 6mos up(PF)) 0.5 mL IM ONCE 0.5 mL 0RF NS Z23 - Encounter for immunization
== END 2024-04-28 13:51 | disposition home or self-care (01) ==
LOC: HO.HMCH 13:14
PROVIDERS: PCP Internal Medicine; Visit Provider Internal Medicine
DX: Z23 Encounter for immunization (principal)

== ENCOUNTER → 2024-04-28 13:14 | Outpatient (BNVA) | payer MEDICARE, SELFPAY | PROVIDERS: PCP Internal Medicine; Visit Provider Internal Medicine | DX: Z23 Encounter for immunization (principal) | CPT/HCPCS: 90471; 90656 ==

== ENCOUNTER 2024-10-06 12:50 | Outpatient (AMB) | payer MEDICARE, SELFPAY ==
--- NOTE | 2024-10-06 13:13 | A.OFFVIS_ITS ---
Intake Visit Reasons: cysto Intake Note: Patient is Present for Cystoscopy Urology Med: Vitamin C, Methenamine, Tamsulosin, Oxybutynin Antibiotic Allergy:None Blood Thinner:None URO- G Disposable Cystoscope lot:[id number] exp:10/13/2026 Accompanied by: Self / Same As Patient Allergies No Known Allergies [No Known Allergies*] Allergy (Verified 10/06/24 13:14) HPI Comments Details: Jason is a pleasant male. He is a patient of Dr. Valdivia. He is seen for the following urologic issues - bladder cancer - neurogenic bladder requiring self catheterization Six-month follow-up cystoscopy Recurrent right sidewall low-grade bladder cancer Recommend TURBT with mitomycin-C and cytarabine Has methenamine for self catheterization Cystitis cystica Continue surveillance Uses coude catheter Bladder cancer - 03/27 fulguration - 04/26 recurrent low-grade Initial diagnosis with Dr. 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 Neurogenic bladder Uses self catheterization TURP late - Regrowth left side GreenLight laser April 2021 PSA 02/22 2.21 Does have recurrent UTI - 06/25 Klebsiella Amp R PFSH Medical History Self-catheterizes urinary bladder Peripheral vascular disease Impacted cerumen of both ears CKD (chronic kidney disease) History of renal calculi Neurogenic bladder GERD (gastroesophageal reflux disease) Urinary bladder cancer Impaired glucose tolerance BPH (benign prostatic hyperplasia) Hypertension Surgical History History of esophagogastroduodenoscopy (EGD) H/O colonoscopy History of prostate surgery History of biopsy of bladder History of throat surgery History of lumbar discectomy History of tonsillectomy S/P transurethral resection of prostate Family History Father No problems noted. Mother No problems noted. Son In good health Daughter In good health Social History Housing: House Are you a primary care advocate to a significant other at home: Yes ( s/p CVA) Do you presently have visiting nurse or other home services: Yes (Private nurse Wednesday+Wednesday 9-, supportive daughter) Unable to assess alcohol history related to: Unknown Alcohol intake: never Patient Tobacco Use Status: Former Tobacco user Tobacco use type: Cigarette e-Cigarette/Vaping Use: Never Used Second Hand Smoke Exposure: No Advance Directives Date on File: 08/06/20 service: Yes Current occupational status: retired Cognitive needs: No Hearing needs: No Vision needs: Yes Review of Systems Const Denies chills and Denies fever(s) Card Reports no additional complaints and Denies syncope Resp Denies cough GI Denies abdominal pain and Denies heartburn Reports as per HPI and Denies change in libido Neuro Denies syncope Psych Denies change in libido Endo Denies change in libido Physical Exam Const General: cooperative, healthy appearing, comfortable and no acute distress Orientation/consciousness: patient oriented x3 HEENT Face and sinus: Yes normal facial exam Mouth: moist mucous membranes Neck Neck: Yes normal visual inspection, Yes full ROM and Yes trachea midline Chest Chest palpation & inspection: normal inspection of the chest Resp Effort & Inspection: normal respiratory effort, able to speak in complete sentences and no respiratory distress GI Inspection: Yes normal to inspection Back/Spine/Pelvis Cervical Spine: normal cervical lordosis Thoracic/Lumbar Spine: thoracic and lumbar spine normal to inspection Skin General skin exam: no rashes or lesions noted Neuro General: patient oriented x3, gait normal, tone normal and moves all extremities Extrem General: Yes normal to inspection and Yes capillary refill normal Office Procedures Cystoscopy Consent Discussed risk and benefit or proposed procedure with the patient. Information consent for procedure given to the patient. Discussed technical aspects, risks, benefits and alternatives in full. Addressed all of the patient's questions and concerns regarding the procedure. The patient demonstrated knowledge and understanding. They wish to proceed with this procedure. Preparation The patient was prepped in the usual manner. A hospice nurse was present and in the room. Genitalia was prepped with betadine solution in a sterile manner. Lidocaine Jelly 2% was placed into the urethra and 16Fr flexible Olympus cystoscope was inserted into the meatus after adequate lubrication. Procedure Cystoscopy perform-ed using a disposable Urovue digital 16 [place] cystoscope. Meatus uncircumcised Urethra narrowing at anterior urethra navigated with 16 [place] Prostatic Urethra unremarkable Bladder examination with retroflexion of cystoscope Bladder Orifices normal shape and position Bladder Capacity large Trabeculations grade 2 Cellule Formation yes Diverticulum Formation - Mucosal Erythema irritation Bladder Tumor lesion on left bladder sidewall [id number] DISPOSABLE SCOPE URO-G FLEXIBLE SCOPE Procedure code (CPT) selection complete Office Meds lidocaine HCl 2 % mucosal jelly in applicator Performing Provider: Roberto Aleman MD [facility] Administered by: Guero Coombs LPN on 10/06/24 13:29 Dose Route Admin Location Dispensed Lot Number Expiration Date ND Pipe Fittings Molder 10 mL intra-urethral 10 mL nitrofurantoin monohydrate/macrocrystals 100 mg capsule Performing Provider: Roberto Aleman MD Performing Location[facility] Administered by: Guero Coombs LPN on 10/06/24 13:29 Dose Route Admin Location Dispensed Lot Number Expiration Date ND Pipe Fittings Molder 100 mg PO 1 cap Assessment & Plan Assessment & Plan (1) Urinary bladder cancer: Comment: January 2016 BCG done, gemcitabine 2019, cystoscopy every 6 months December [address] Aleman september 2022 Low grade papillary urothelial neoplasm; Code(s): C67.9 - Malignant neoplasm of bladder, unspecified Category: Medical Qualifiers: Bladder location: unspecified site Qualified Code(s): C67.9 - Malignant neoplasm of bladder, unspecified (2) BPH (benign prostatic hyperplasia): Comment: April 2021 GreenLight laser enucleation of the prostate, bladder biopsy with fulguration Code(s): N40.0 - Benign prostatic hyperplasia without lower urinary tract symptoms Category: Medical Qualifiers: Lower urinary tract symptom presence: symptoms present Lower urinary tract symptom detail: urinary obstruction Qualified Code(s): N40.1 - Benign prostatic hyperplasia with lower urinary tract symptoms; N13.8 - Other obstructive and reflux uropathy Plan Risks, benefits and alternatives to therapy were discussed. These include but are not limited to infection, bleeding, damage to local organs and tissues, need for further interventions. Anesthetic risks regarding cardiac arrhythmia, blood clots, and potential mortality were discussed. The patient understands the typical recovery time and the outpatient nature of the procedure. After consideration of these risks the patient gives full informed consent and they wish to move ahead with the procedure. TURBT with mitomycin and cytarabine Orders: Orders AMB Cystoscopy Today C67.9 - Malignant neoplasm of bladder, unspecified Patient Instructions: This note is constructed using voice recognition software. While every effort has been made to ensure accuracy developmental mathematics instructor errors may have been included. Imaging studies, laboratory and physical exam results were discussed and reviewed in detail. No major barriers to patient understanding were identified. An opportunity to ask questions regarding the treatment plan was provided. All questions were answered. The patient expressed understanding and agreement with the above treatment plan. The patient is aware they should contact our office by phone for worsening of their current condition or the appearance of new urologic symptoms. Compliance is encouraged with any medications and followup testing that is ordered. It is a privilege to participate in the urologic care of your patient. If you have any questions or concerns regarding treatment for the above conditions, or other urologic issues, please do not hesitate to contact me. The office telephone contact is [phone]. Sincerely, Dr Roberto Aleman MD, [facility] - Urology Compassionate Specialist Care for the Genitourinary System Coding Level of Care Code Est Pt Level 4 (65411) Complex EM visit Add On G2211 Diagnoses Malignant neoplasm of urinary bladder, unspecified site C67.9 Bladder location: unspecified site Benign prostatic hyperplasia with urinary obstruction N40.1; N13.8 Lower urinary tract symptom presence: symptoms present Lower urinary tract symptom detail: urinary obstruction CPT Codes Cystoscopy - CPT: [id number] ([id number])
--- OUTSIDE RECORDS SUMMARY | 2024-10-06 14:39 | XMS_ITS | Clinical Summary ---
Author Organization [facility] Address [address] [place] [phone] Phone Care Team Providers Care Rn Radiology Name Role Phone Kunal Valdivia MD Primary Care Provider [phone] Allergies No known active allergies Medications omeprazole (PriLOSEC) [address] capsule Take 1 capsule by mouth 1 (one) time each day Active nitrofurantoin (MACRODANTIN) 100 MG capsule Take 1 capsule by mouth 1 (one) time each day Active doxazosin (CARDURA) 2 MG tablet TAKE 2 TABLETS BY MOUTH EVERY DAY AT BEDTIME 180 tablet 3 4 Active potassium chloride (K-TAB) 20 MEQ CR tabletIndicatio ns:Stage 3a chronic kidney disease (HCC) Take 1 tablet (20 mEq total) by mouth 1 (one) time each day Do not crush, chew, or split. 90 tablet 3 5 Active torsemide (DEMADEX) 20 MG tablet Take 1 tablet (20 mg total) by mouth 1 (one) time each day 90 tablet 3 5 Active torsemide (DEMADEX) 20 MG tablet Take 1 tablet (20 mg total) by mouth 1 (one) time each day 90 tablet 3 4 09/15/19 25 Discontinu ed(Reorder (does not appear on AVS)) Active Problems Problem Noted Date Diagnosed Date Acute nontraumatic kidney injury 06/09/2021 Blood in urine 06/09/2021 Chronic kidney disease stage 4 06/09/2021 Essential hypertension 06/09/2021 Gastroesophageal reflux disease 06/09/2021 Malignant neoplasm of urinary bladder 06/09/2021 Neurogenic urinary bladder 06/09/2021 Renal stone 06/09/2021 Stage 3a chronic kidney disease 06/09/2021 Encounters Date Type Department Care Team Description 09/14/2024 Refill [facility] [address] [place] [phone] Praveena Pereira MA 08/14/2024 Refill [facility] [address] [address] Marion Muñoz MA Stage 3a chronic kidney disease (HCC) from Last 3 Months Family History Medical History Relation Comments Cancer Sibling brother-pancreat ic Relation Status Comments Father Mother Sibling Social History Tobacco Use Types Packs/Day Years Used Date Smoking Tobacco: Former Cigarettes Q uit: 01/27/1977 Comments:Smoking History Inf o:Every day Alcohol Use Standard Drinks/Week Comments Yes 0 (1 standard drink = 0.6 oz pure alcohol) Alcoholic Drinks/day: Occasional social drink Sex and Gender Information Value Date Recorded Sex Assigned at Not on file Legal Sex Male 4:55 PM EST Gender Identity Not on file Sexual Orientation Not on file Last Filed Vital Signs Vital Sign Reading Time Taken Comments Blood Pressure 126/60 03/15/2023 8:59 AM EDT Pulse 88 03/15/2023 8:59 AM EDT Temperature - - Respiratory Rate - - Oxygen Saturation 99% 03/15/2023 8:59 AM EDT Inhaled Oxygen Concentration - - Weight 74.3 kg (163 lb 12.8 oz) 03/15/2023 8:59 AM EDT Height 180.3 cm (5' 11 ) 06/12/2019 12: 00 PM EST Body Mass Index 22.85 06/12/2019 12:00 PM EST Plan of Treatment Upcoming Encounters Date Type Department Care Team (Late st Contact Info) Description 11/06/2024 1:45 PM EDT Office Visit [facility] [address] [place] [phone] Rohit Velez MD [address] [address] Health Maintenance Due Date Last Done Comments Pneumococcal Vaccine: 65+ Ye ars (1 of 2 - PCV) 1941 Influenza Vaccine (#1) 2024 Hepatitis B Vaccine Aged Out No longe r eligible based on patient's age to complete this topic Insurance [facility] Care Teams Rn Radiology Relationship Specialty Start Date End Date Kunal Valdivia MD [address] [place], [place] PCP - General 07/15/20
--- OUTSIDE RECORDS SUMMARY | 2024-10-06 14:39 | XMS_ITS | Encounter Summary ---
Author Organization [facility] Address [address] [facility] [address] [place] [address] Phone Care Team Providers Care Anesthesiology Resident Name Role Phone Kunal Valdivia MD Primary Care Provider [phone] Encounter Details Date Type Department Care Team (Late st Contact Info) Description 11/10/2021 Telephone [facility] [address] [facility] [address] [place] [address] Rohit Velez MD [address] [facility] [address] [place] [phone] Social History Tobacco Use Types Packs/Day Years [...] on file Sexual Orientation Not on file documented as of this encounter Miscellaneous Notes * Telephone Encounter - Carey De La Fuente - 11/10/2021 3:50 PM EDT Pt called, he needs a refill for potassium. Please send to the [facility] [place] Thank you documented in this encounter Plan of Treatment Upcoming Encounters Date Type Department Care Team (Late st Contact Info) Description 11/06/2024 1:45 PM EDT Office Visit [facility] [address] [place] [phone] Rohit Velez MD [address] [facility] [address] [place] [address] documented as of this encounter Visit Diagnoses Not on filedocumented in this encounter Care Teams Anesthesiology Resident Relationship Specialty Start Date End Date Kunal Valdivia MD [address] [place] PCP - General 07/15/20 documented as of this encounter
== END 2024-10-06 13:59 | disposition home or self-care (01) ==
LOC: HO.HUSH 12:50
PROVIDERS: PCP Internal Medicine; Visit Provider Urology
DX: C67.2 Malignant neoplasm of lateral wall of bladder (principal); N40.1 Benign prostatic hyperplasia with lower urinary tract symptoms; N13.8 Other obstructive and reflux uropathy
CPT/HCPCS: 52000; 99214; G2211

== ENCOUNTER → 2024-10-06 12:50 | Outpatient (BNVA) | payer MEDICARE, SELFPAY | PROVIDERS: PCP Internal Medicine; Visit Provider Urology | DX: N40.1 Benign prostatic hyperplasia with lower urinary tract symptoms (principal); N13.8 Other obstructive and reflux uropathy; C67.9 Malignant neoplasm of bladder, unspecified | CPT/HCPCS: 52000; 81003; 99212 ==

== ENCOUNTER 2024-11-06 11:43 | Day surgery (SDC) | payer MEDICARE, SELFPAY ==
--- OUTSIDE RECORDS SUMMARY | 2024-10-16 09:58 | XMS_ITS | Clinical Summary ---
Author Organization [facility] Address [address] [address] Phone Care Team Providers Care Electronic Gaming Device Supervisor Name Role Phone Kunal Valdivia MD Primary Care Provider [phone] Allergies No known active allergies Medications omeprazole (PriLOSEC) [address] capsule Take 1 capsule by mouth 1 (one) time each day Active nitrofurantoin (MACRODANTIN) 100 MG capsule Take 1 capsule by mouth 1 (one) time each day Active doxazosin (CARDURA) 2 MG tablet TAKE 2 TABLETS BY MOUTH EVERY DAY AT BEDTIME 180 tablet 3 01/09/2024 Active potassium chloride (K-TAB) 20 MEQ CR tabletIndicatio ns:Stage 3a chronic kidney disease (HCC) Take 1 tablet (20 mEq total) by mouth 1 (one) time each day Do not crush, chew, or split. 90 tablet 3 08/14/2024 Active torsemide (DEMADEX) 20 MG tablet Take 1 tablet (20 mg total) by mouth 1 (one) time each day 90 tablet 3 09/14/2024 Active Active Problems Problem Noted Date Diagnosed Date Acute nontraumatic kidney injury 06/09/2021 Blood in urine 06/09/2021 Chronic kidney disease stage 4 06/09/2021 Essential hypertension 06/09/2021 Gastroesophageal reflux disease 06/09/2021 Malignant neoplasm of urinary bladder 06/09/2021 Neurogenic urinary bladder 06/09/2021 Renal stone 06/09/2021 Stage 3a chronic kidney disease 06/09/2021 Encounters Date Type Department Care Team Description 09/14/2024 Refill [facility] [address] [phone] Praveena Pereira MA 08/14/2024 Refill [facility] [address] [phone] Marion Muñoz MA Stage 3a chronic [...] Visit [facility] [address] [place] [phone] Rohit Velez MD [address] [phone] Health Maintenance Due Date Last Done Comments Pneumococcal Vaccine: 50+ Ye ars (1 of 2 - PCV) 1954 Influenza Vaccine (Season Ended) 2025 Hepatitis B Vaccine Aged Out No longe r eligible based on patient's age to complete this topic Insurance [facility] Care Teams Electronic Gaming Device Supervisor Relationship Specialty Start Date End Date Kunal Valdivia MD [address] [place], [place] PCP - General 07/15/20
--- OUTSIDE RECORDS SUMMARY | 2024-10-16 09:58 | XMS_ITS | Encounter Summary ---
Author Organization [facility] Address [address] [facility] [address] [place] [address] Phone Care Team Providers Care Pipe And Tank Fabricator Name Role Phone Kunal Valdivia MD Primary Care Provider [phone] Encounter Details Date Type Department Care Team (Late st Contact Info) Description 11/10/2021 Telephone [facility] [address] [facility] [address] [place] [address] Rohit Velez MD [address] [facility] [address] [place] [phone] Social History Tobacco Use Types Packs/Day Years [...] potassium. Please send to the [facility] [place] Thank you documented in this encounter Plan of Treatment Upcoming Encounters Date Type Department Care Team (Late st Contact Info) Description 11/06/2024 1:45 PM EDT Office Visit [facility] [address] [place] [phone] Rohit Velez MD [address] [facility] [address] [place] [address] documented as of this encounter Visit Diagnoses Not on filedocumented in this encounter Care Teams Pipe And Tank Fabricator Relationship Specialty Start Date End Date Kunal Valdivia MD [address] [place] PCP - General 07/15/20 documented as of this encounter
[2024-11-01 15:31] VITALS: BMI 23.7
[2024-11-06] VITALS (13 sets, daily range): BP systolic 116–163; BP diastolic 52–72; PULSE 46–70; RESP 16–18; TEMP 36.1–36.6; O2SAT 98–99
[2024-11-06] MEDS: Lactated Ringers 1,000 ML 80 ML IVCONT (12:11)
--- NOTE | 2024-11-06 13:21 | MHC.SHP ---
Pre-Procedural Eval Section A - 24 Hr Update-Section A only Date of Service: 11/06/24 The patient is an INPATIENT: No Changes since office visit: No Cold of Flu in the past 2 weeks, No New Medical Problems, No Changes in Medication and No Patient answered all questions The patient has been examined within 24 hours of the surgical procedure. The History & Physical has been completed within 30 days and I have reviewed it.: Yes Section B - Complete if H&P > 30 days Chief Complaint: Echinococcosis, unspecified Details of Present Illness: Recurrent superficial bladder cancer. TURBT with instillation mitomycin-C and cytarabine. Relevant Family History (Specify if Yes): No Present Medications: see Short Stay Collaborative assessment Medical History: No relevant PMH History of Previous Operations: Relevant previous surgery/procedure and date(s) Allergies: Allergies Allergy/AdvReac Type Severity Reaction Status Date / Time latex Allergy Redness of Verified 11/01/24 15:27 Skin Review of Systems Sugical H&P ROS: Negative: Constitution, Cardiovascular, Respiratory, Neurological, Psychiatric, Hem-Onc, Allergic/Immunologic, Gastrointestinal, Genitourinary, Musculoskeletal, Integumentary, Endocrine and Eyes/Ears/Nose/Throat Exam Surgical H&P Exam: Normal: HEENT, Normal: Heart, Normal: Lungs, Normal: Extremities, Normal: Abdomen, Normal: Skin and Normal: Neurological Plan Diagnosis/Plan: Unchanged (Cystoscopy with TURBT and mitomycin-C with cytarabine) I have reviewed the history and physical and performed a pertinent physical examination on my patient. No changes have occurred unless specified. Time Spent With Patient Time: Total time managing care of this patient today ____ minutes.
--- NOTE | 2024-11-06 13:26 | P.CONAN_ITS ---
HPI - Anesthesia Eval Consult details Narrative: For cysto, TURBT, mitomycin PMFSH Active Problems Active Problems: All Active Problems Cystitis cystica (Acute) COVID-19 virus infection (Acute) Vision changes (Acute) Neurogenic bladder (Acute) Adult general medical exam (Acute) Chronic UTI (urinary tract infection) (Acute) Hypophosphatemia (Acute) Urinary bladder cancer (Acute) GERD (gastroesophageal reflux disease) (Acute) Impaired glucose tolerance (Acute) BPH (benign prostatic hyperplasia) (Acute) Hypertension (Acute) Past Medical History Medical History Self-catheterizes urinary bladder Peripheral vascular disease Impacted cerumen of both ears CKD (chronic kidney disease) History of renal calculi Neurogenic bladder GERD (gastroesophageal reflux disease) Urinary bladder cancer Impaired glucose tolerance BPH (benign prostatic hyperplasia) Hypertension Family History Family History Father No problems noted. Mother No problems noted. Son In good health Daughter In good health Family history of problems with anesthesia: No Surgical History Surgical History History of esophagogastroduodenoscopy (EGD) H/O colonoscopy History of prostate surgery History of biopsy of bladder History of throat surgery History of lumbar discectomy History of tonsillectomy S/P transurethral resection of prostate History of Problems with Anesthesia: No Social History Social History (Updated 11/01/24 @ 15:25 by Jeannette Murphy RN) Household Members: Spouse Housing: House Are you a primary lawn care professional to a significant other at home: Yes ( in rehab s/p CVA) Do you presently have visiting nurse or other home services: No Alcohol intake: never Patient Tobacco Use Status: Never used Tobacco Tobacco use type: Cigarette e-Cigarette/Vaping Use: Never Used Second Hand Smoke Exposure: No Use of substances other than those prescribed or required for medical reasons: No Have you been hit, kicked, punched, or otherwise hurt by someone within the past year? If so, by whom?: No Are you DNR?: No Advance Directives: Yes Advance Directives Information Provided: No Advance Directives on File: Yes Advance Directives Date on File: 08/06/20 Poor oral hygiene: No (lower partial) service: Yes Current occupational status: retired Cognitive needs: No Hearing needs: No Vision needs: Yes Meds Allergies Allergy/AdvReac Type Severity Reaction Status Date / Time latex Allergy Redness of Verified 11/01/24 15:27 Skin Active Medications: Current Medications Mitomycin 40 mg/ Cytarabine (200 mg/ Sodium Chloride) 40 mls @ 26.667 mls/hr INTRAVESIC ONCE TIARA Stop: 11/06/24 23:59 Lactated Ringer's (Lr) 1,000 mls @ 80 mls/hr IVCONT .[id number] TIARA Last Admin: 11/06/24 12:11 Dose: 80 mls/hr Lidocaine HCl (Lidocaine Hcl 2 % Urojet 10 Ml Jel.Pf.Osman) 10 ml INTRAVESIC ONCE ONE Stop: 11/06/24 23:59 Home Medications ?Medication ?Instructions ?Recorded ?Confirmed ?Last Taken ?Type bpiihpyisqqz-jwuffkn-zslfg acid 1 tab PO DAILY 07/09/20 11/01/24 Unknown History 400 mcg-lutein 250 mcg chewable tablet (Centrum Silver) torsemide 20 mg tablet 20 mg PO DAILY 07/09/20 11/01/24 1 Day Ago History ~04/06/23 doxazosin 2 mg tablet 4 mg PO BEDTIME 11/01/24 11/01/24 Unknown History potassium chloride 20 mEq 20 meq PO DAILY 11/01/24 11/01/24 Unknown History tablet,extended release Exam Height,Weight and Vital Signs: Height 5 ft 10 in Weight 74.843 kg Last Vital Signs Temp 97.9 F 11/06/24 12:01 Pulse 66 11/06/24 12:01 Resp 16 11/06/24 12:01 BP 161/58 H 11/06/24 12:01 Pulse Ox 99 11/06/24 12:01 O2 Del Method Room Air 11/06/24 12:01 Airway Mallampati Class: II TM Dist: <=3cm Neck ROM: Full Loose/Missing/Broken Teeth: Yes Heart: ok Lungs: ok Assessment and Plan Assessment Anesthesia Assessment: Anesthesia Plan Discussed and Chart Reviewed Final Anesthetic Review Family History of Problems with Anesthesia: No History of Problems with Anesthesia: No NPO: Yes ASA Class: III Final Preanesthetic Review: No Changes in Pt Med Stat, Meds/Allgs Chart Reviewed, Consent Obtained/Reviewed and Anes Risks/Benef Reviewed Patient Risk: Intermediate Procedure Risk: Low Anesthetic Plan Anesthetic Plan: GA and Agree w/ Assess. and Plan Disposition: Standard PACU
--- NOTE | 2024-11-06 14:22 | W.PM.OPN ---
Operative Note Operative Note Date of Service: 11/06/24 Narrative: PreOperative Diagnosis: bladder cancer Post Operative Diagnosis: bladder cancer - Tumor size 8 cm discontinuous cm, location bilateral bladder [place] Procedure: TURBT and mitomycin-C with cytarabine installation Surgeon: Dr Roberto Aleman Anesthesia: general Indications for procedure: Recurrent superficial bladder cancer. On cystoscopy in office had wide areas of superficial change on the lateral sidewalls of his bladder. Procedure: After informed consent was verified the patient was brought to the operating room and placed in a supine position. Anesthesia was administered per protocol. The patient was placed in a modified dorsal lithotomy position and prepped and draped in a sterile fashion. Safety pause time-out was performed. Antibiotics were confirmed. A 26 Indonesian continuous flow resectoscope was inserted per urethra. The visual obturator was used in order to minimize potential for urethral damage. The mucosal changes could be seen throughout the bladder. TURP defects seen. Ureteric orifice normal position. The bladder areas were fulgurated extensively. There was greater than 8 cm of mucosal change throughout. Superficial low-grade bladder cancer type changes. Areas included right sidewall, prostatic fossa right sidewall, left lateral sidewall. These were all fulgurated and using cutting using the bipolar. At the completion of the procedure the bladder was irrigated. The cystoscope was removed. A [address] Atkins catheter was inserted into the bladder. 10 cc was placed in the balloon. 40 mg of mitomycin-C with 200 mg cytarabine was instilled into the bladder. The flow from the catheter was left clamped. The inflow to the catheter was attached to a 3 L normal saline bag. The patient tolerated the procedure well. They were extubated in the operating room and transferred in stable condition to the recovery area. Mitomycin-C will remain in the bladder for 1 hour. At the completion of 1 hour the clamp will be removed. The mitomycin-C will be allowed to egress to the urine collection bag. The 3 L bag of normal saline will be run at maximum rate through the bladder in order to dilute any residual mitomycin-C. The Atkins catheter will then be removed. Pathology: Drains: Three-way Atkins catheter
[2024-11-06] MEDS: Acetaminophen 325 MG TABLET 975 MG PO (14:53)
== END 2024-11-06 16:46 | disposition home or self-care (01) ==
PROVIDERS: PCP Internal Medicine; Visit Provider Urology
PROC: 0TBB8ZZ Excision of Bladder, Via Natural or Artificial Opening Endoscopic (ICD-10-PCS; CPT 52240; principal; 2024-11-06 13:20)
DX: C67.8 Malignant neoplasm of overlapping sites of bladder (principal); N40.1 Benign prostatic hyperplasia with lower urinary tract symptoms; N31.9 Neuromuscular dysfunction of bladder, unspecified; Z46.6 Encounter for fitting and adjustment of urinary device; I12.9 Hypertensive chronic kidney disease with stage 1 through stage 4 chronic kidney disease, or unspecified chronic kidney disease; N18.9 Chronic kidney disease, unspecified; N30.80 Other cystitis without hematuria; R73.02 Impaired glucose tolerance (oral); I73.9 Peripheral vascular disease, unspecified; Z87.442 Personal history of urinary calculi; Z79.899 Other long term (current) drug therapy; Z91.040 Latex allergy status; Z98.890 Other specified postprocedural states; Z87.891 Personal history of nicotine dependence
CPT/HCPCS: 52240; J1956; J2003; J2704; J3010; J9100; J9280

== ENCOUNTER → 2024-11-06 11:43 | Outpatient (BNV) | payer MEDICARE, SELFPAY | PROVIDERS: PCP Internal Medicine; Visit Provider Urology | DX: C67.8 Malignant neoplasm of overlapping sites of bladder (principal) | CPT/HCPCS: 52240 ==

== ENCOUNTER → 2024-11-08 12:59 | Outpatient (BNVA) | payer MEDICARE, SELFPAY | PROVIDERS: PCP Internal Medicine; Visit Provider Urology ==

== ENCOUNTER 2024-11-21 14:14 | Outpatient (REF) | payer MEDICARE, SELFPAY | END 2024-11-21 14:15 | disposition home or self-care (01) | LOC: HO.LAB 14:14 | PROVIDERS: PCP Internal Medicine; Visit Provider Urology | DX: C67.9 Malignant neoplasm of bladder, unspecified (principal); N40.1 Benign prostatic hyperplasia with lower urinary tract symptoms; M79.671 Pain in right foot; N31.9 Neuromuscular dysfunction of bladder, unspecified; N13.8 Other obstructive and reflux uropathy; N30.80 Other cystitis without hematuria; W20.8XXA Other cause of strike by thrown, projected or falling object, initial encounter; Y93.9 Activity, unspecified; Y92.9 Unspecified place or not applicable; Y99.9 Unspecified external cause status | CPT/HCPCS: 51798; 81003; 96127; 99212 ==

== ENCOUNTER 2024-11-21 14:14 | Outpatient (AMB) | payer MEDICARE, SELFPAY ==
--- NOTE | 2024-11-21 14:21 | MHC.OFFVIS ---
Intake Visit Reasons: TURBT follow up Intake Note: Pt presents to the office today for a TURBT follow up. PVR:63ml Allergies latex Allergy (Verified 11/21/24 15:50) Redness of Skin HPI Comments Details: Jason is a pleasant male. He is a patient of Dr. Valdivia. He is seen for the following urologic issues - bladder cancer - neurogenic bladder requiring self catheterization Sidewall fulguration Recurrent superficial Three-month follow-up check cysto office Recently lost of 65 years Has methenamine for self catheterization Cystitis cystica Continue surveillance Uses coude catheter Bladder cancer - 03/27 fulguration - 04/26 recurrent low-grade - 11/26 recurrent superficial Initial diagnosis with Dr. 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 Neurogenic bladder Uses self catheterization TURP late - Regrowth left side GreenLight laser April 2021 PSA 02/22 2.21 Does have recurrent UTI - 06/25 Klebsiella Amp R PFSH Medical History Self-catheterizes urinary bladder Peripheral vascular disease Impacted cerumen of both ears CKD (chronic kidney disease) History of renal calculi Neurogenic bladder GERD (gastroesophageal reflux disease) Urinary bladder cancer Impaired glucose tolerance BPH (benign prostatic hyperplasia) Hypertension Surgical History History of esophagogastroduodenoscopy (EGD) H/O colonoscopy History of prostate surgery History of biopsy of bladder History of throat surgery History of lumbar discectomy History of tonsillectomy S/P transurethral resection of prostate Family History Father No problems noted. Mother No problems noted. Son In good health Daughter In good health Social History Household Members: Spouse Housing: House Are you a primary insurance healthcare representative to a significant other at home: Yes ( in rehab s/p CVA) Do you presently have visiting nurse or other home services: No 75 years or older and lives alone: No Alcohol intake: never Patient Tobacco Use Status: Never used Tobacco Tobacco use type: Cigarette e-Cigarette/Vaping Use: Never Used Second Hand Smoke Exposure: No Advance Directives Date on File: 08/06/20 service: Yes Current occupational status: retired Cognitive needs: No Hearing needs: No Vision needs: Yes Review of Systems Const Denies chills and Denies fever(s) Card Reports no additional complaints and Denies syncope Resp Denies cough GI Denies abdominal pain and Denies heartburn Reports as per HPI and Denies change in libido Neuro Denies syncope Psych Denies change in libido Endo Denies change in libido Physical Exam Const General: cooperative, healthy appearing, comfortable and no acute distress Orientation/consciousness: patient oriented x3 HEENT Face and sinus: Yes normal facial exam Mouth: moist mucous membranes Neck Neck: Yes normal visual inspection, Yes full ROM and Yes trachea midline Chest Chest palpation & inspection: normal inspection of the chest Resp Effort & Inspection: normal respiratory effort, able to speak in complete sentences and no respiratory distress GI Inspection: Yes normal to inspection Back/Spine/Pelvis Cervical Spine: normal cervical lordosis Thoracic/Lumbar Spine: thoracic and lumbar spine normal to inspection Skin General skin exam: no rashes or lesions noted Neuro General: patient oriented x3, gait normal, tone normal and moves all extremities Extrem General: Yes normal to inspection and Yes capillary refill normal Office Procedures Post Void Residual Post Residual Void Post Void Residual (PVR): 63 [id number]-[id number] Void Residual by ultrasound Results AMB Urinalysis, Automated UA Leukoctes 500 [place]/uL Last Edit by Livier Elliott CMA on 11/21/24 14:34 UA Nitrite Negative Last Edit by Livier Elliott CMA on 11/21/24 14:34 UA Urobilinogen 0.2 mg/dL Last Edit by Livier Elliott CMA on 11/21/24 14:34 UA Protein 30 mg/dL Last Edit by Livier Elliott CMA on 11/21/24 14:34 UA pH 6.0 Last Edit by Livier Elliott CMA on 11/21/24 14:34 UA Blood 200 [place]/uL Last Edit by Livier Elliott CMA on 11/21/24 14:[address] [place] 1.010 Last Edit by Livier Elliott CMA on 11/21/24 14:34 UA Ketone Negative Last Edit by Livier Elliott CMA on 11/21/24 14:34 UA Bilirubin 0 mg/dL Last Edit by Livier Elliott CMA on 11/21/24 14:34 UA Glucose 0 mg/dL Last Edit by Livier Elliott CMA on 11/21/24 14:34 Results Reviewed Results Reviewed: Laboratory Last Values Urine pH (Auto) 6.0 11/21/24 14:[address] [place] (Auto) 1.010 11/21/24 14:33 Urine Protein (Auto) 30 mg/dL 11/21/24 14:33 Glucose (UA)(Auto) 0 mg/dL 11/21/24 14:33 Urine Ketones (Auto) Negative 11/21/24 14:33 Urine Blood (Auto) 200 [place]/uL 11/21/24 14:33 Urine Nitrite (Auto) Negative 11/21/24 14:33 Urine Bilirubin (Auto) 0 mg/dL 11/21/24 14:33 Urine Urobilinogen (Auto) 0.2 mg/dL 11/21/24 14:33 Leukocyte Esterase (Auto) 500 [place]/uL 11/21/24 14:33 Assessment & Plan Assessment & Plan (1) BPH (benign prostatic hyperplasia): Comment: April 2021 GreenLight laser enucleation of the prostate, bladder biopsy with fulguration Code(s): N40.0 - Benign prostatic hyperplasia without lower urinary tract symptoms Category: Medical Qualifiers: Lower urinary tract symptom presence: symptoms present Lower urinary tract symptom detail: urinary obstruction Qualified Code(s): N40.1 - Benign prostatic hyperplasia with lower urinary tract symptoms; N13.8 - Other obstructive and reflux uropathy (2) Urinary bladder cancer: Comment: January 2016 BCG done, gemcitabine 2019, cystoscopy every 6 months December [address] Aleman september 2022 Low grade papillary urothelial neoplasm; Code(s): C67.9 - Malignant neoplasm of bladder, unspecified Category: Medical Qualifiers: Bladder location: unspecified site Qualified Code(s): C67.9 - Malignant neoplasm of bladder, unspecified (3) Neurogenic bladder: Code(s): N31.9 - Neuromuscular dysfunction of bladder, unspecified Category: Medical (4) Cystitis cystica: Code(s): N30.80 - Other cystitis without hematuria Category: Medical Plan Three-month follow-up check cysto office Orders: Orders AMB Urinalysis Automated Today N39.0 - Urinary tract infection, site not specified AMB Post Void Residual by ultrasound Today N13.8 - Other obstructive and reflux uropathy, N40.1 - Benign prostatic hyperplasia with lower urinary tract symptoms FISH Bladder Cancer Today C67.9 - Malignant neoplasm of bladder, unspecified Patient Instructions: This note is constructed using voice recognition software. While every effort has been made to ensure accuracy white sidewall tire buffer errors may have been included. Imaging studies, laboratory and physical exam results were discussed and reviewed in detail. No major barriers to patient understanding were identified. An opportunity to ask questions regarding the treatment plan was provided. All questions were answered. The patient expressed understanding and agreement with the above treatment plan. The patient is aware they should contact our office by phone for worsening of their current condition or the appearance of new urologic symptoms. Compliance is encouraged with any medications and followup testing that is ordered. It is a privilege to participate in the urologic care of your patient. If you have any questions or concerns regarding treatment for the above conditions, or other urologic issues, please do not hesitate to contact me. The office telephone contact is [phone]. Sincerely, Dr Roberto Aleman MD, [facility] - Urology Compassionate Specialist Care for the Genitourinary System Coding Level of Care Code Est Pt Level 3 (90823) Complex EM visit Add On G2211 Diagnoses Benign prostatic hyperplasia with urinary obstruction N40.1; N13.8 Lower urinary tract symptom presence: symptoms present Lower urinary tract symptom detail: urinary obstruction Malignant neoplasm of urinary bladder, unspecified site C67.9 Bladder location: unspecified site Neurogenic bladder N31.9 Cystitis cystica N30.80 CPT Codes Post Residual Void - PVR CPT Code: 82579-[id number] Void Residual by ultrasound ([id number])
--- OUTSIDE RECORDS SUMMARY | 2024-11-21 15:41 | XMS_ITS | Clinical Summary ---
Author Organization [facility] Address [address] [address] Phone Care Team Providers Care Record Center Coordinator Name Role Phone Kunal Valdivia MD Primary Care Provider [phone] Allergies No known active allergies Medications omeprazole [...] 09/14/2024 Refill [facility] [address] [id number] Praveena Pereira MA from Last 3 Months Family History Medical [...] 06/12/2019 12:00 PM EST Plan of Treatment Health Maintenance Due Date Last Done Comments Pneumococcal Vaccine: 50+ Ye ars (1 of 2 - PCV) 1954 Influenza Vaccine (Season Ended) 2025 Hepatitis B Vaccine Aged Out No longe r eligible based on patient's age to complete this topic Insurance [address] [place] [address] [facility] [address] [place] [address] [facility] Care Teams Record Center Coordinator Relationship Specialty Start Date End Date Kunal Valdivia MD [address] [place], [place] PCP - General 07/15/20
--- OUTSIDE RECORDS SUMMARY | 2024-11-21 15:41 | XMS_ITS | Encounter Summary ---
Author Organization [facility] Address [address] [facility] [address] [place] [address] Phone Care Team Providers Care Junior Graphic Designer Name Role Phone Kunal Valdivia MD Primary Care Provider [phone] Encounter Details Date Type Department Care Team ([facility] st Contact Info) Description 11/10/2021 Telephone [facility] [address] [facility] [address] [place] [address] Rohit Velez MD [address] [facility] [address] [place] [id number] Social History Tobacco Use Types Packs/Day Years [...] Please send to the [facility] on [facility] [place] Thank you documented in this encounter Plan of Treatment Not on file documented as of this encounter Visit Diagnoses Not on filedocumented in this encounter Care Teams Junior Graphic Designer Relationship Specialty Start Date End Date Kunal Valdivia MD [address] [place], [place] PCP - General 07/15/20 documented as of this encounter
== END 2024-11-21 15:33 | disposition home or self-care (01) ==
LOC: HO.HUSH 14:15
PROVIDERS: PCP Internal Medicine; Visit Provider Urology
DX: N40.1 Benign prostatic hyperplasia with lower urinary tract symptoms (principal); N13.8 Other obstructive and reflux uropathy; C67.9 Malignant neoplasm of bladder, unspecified; N31.9 Neuromuscular dysfunction of bladder, unspecified; N30.80 Other cystitis without hematuria; N39.0 Urinary tract infection, site not specified
CPT/HCPCS: 99213; G2211

== ENCOUNTER 2024-11-21 15:24 | Outpatient (AMB) | payer MEDICARE, SELFPAY ==
[2024-11-21 15:25] VITALS: BP 122/60; PULSE 66; TEMP 36.3; O2SAT 98; BMI 24.5
--- NOTE | 2024-11-21 15:25 | MHC.PC.OV ---
Vital Signs 11/21/24 15:25 Height 5 ft 10 in Weight 171 lb BMI 24.5 BP 122/60 Blood Pressure Location Lt brachial Position Sitting Pulse 66 Pulse Source Pulse Oximeter Temp 97.3 F Temp Source Temporal Artery Scan Pulse Oximetry (%) 98 Oxygen Delivery Method Room Air Intake Visit Reasons: pain and difficulty walking on right foot Can Runner Required: No Accompanied by: Daughter Milady Allergies latex Allergy (Verified 11/21/24 15:50) Redness of Skin Medication List - Last Reconciled 11/21/24 by Hood Gutierrez PA-C ascorbic acid (vitamin C) 1 g PO DAILY 90 days catheter (Bard Coude Tip Catheter) As directed ciprofloxacin HCl 250 mg PO BID PRN doxazosin 4 mg PO BEDTIME methenamine hippurate 1 g PO DAILY 90 days rmrivcsn-nqj-pmier acid-lutein 400-250 mcg (Centrum Silver) 1 tab PO DAILY potassium chloride ER 20 mEq PO DAILY tamsulosin 0.4 mg PO DAILY 90 days torsemide 20 mg PO DAILY Tobacco use date assessed: 11/21/24 Fall risk assessment: No Falls in past year Last assessed Fall Risk: 11/21/24 Dental Screening Dental Screen Date: 11/21/24 Did you have a dental visit in the last 12 months?: Yes Did you have a dental problem in the last 6 months where you did not have access to dental care?: No Was dental information given to patient?: Patient has dentist HPI pain and difficulty walking on right foot HPI Details The patient is an 89-year-old male presenting with a suspected toe injury and possible infection. The patient reported an incident in which a phone was accidentally dropped on his toe, leading to redness and suspected trauma on a recent Wednesday. While the initial assessment by a nurse caregiver suggested that cellulitis or gout were unlikely, they were not dismissed entirely. Since the incident, the patient has used Aleve (naproxen sodium), taken every 12 hours, and has attempted Epsom salt baths and ice applications, which have not significantly improved the condition aside from mild pain relief from Aleve. The patient experiences pain, especially when moving the toe, but denies any skin openings or bleeding at the injury site. He is concerned about the possibility of a fracture or discomfort related to a traumatic arthritis flare, with exploratory imaging like an x-ray considered to verify the injury's nature. [facility] Medical History Self-catheterizes urinary bladder Peripheral vascular disease Impacted cerumen of both ears CKD (chronic kidney disease) History of renal calculi Neurogenic bladder GERD (gastroesophageal reflux disease) Urinary bladder cancer Impaired glucose tolerance BPH (benign prostatic hyperplasia) Hypertension Surgical History History of esophagogastroduodenoscopy (EGD) H/O colonoscopy History of prostate surgery History of biopsy of bladder History of throat surgery History of lumbar discectomy History of tonsillectomy S/P transurethral resection of prostate Family History Father No problems noted. Mother No problems noted. Son In good health Daughter In good health Social History Household Members: Spouse Housing: House Are you a primary post acute care registered nurse to a significant other at home: Yes ( in rehab s/p CVA) Do you presently have visiting nurse or other home services: No 75 years or older and lives alone: No Alcohol intake: never Patient Tobacco Use Status: Never used Tobacco Tobacco use type: Cigarette e-Cigarette/Vaping Use: Never Used Second Hand Smoke Exposure: No Advance Directives Date on File: 08/06/20 service: Yes Current occupational status: retired Cognitive needs: No Hearing needs: No Vision needs: Yes Questionnaire PHQ-9 Over the last 2 weeks, how often have you been bothered by any of the following problems? 1. Little interest or pleasure in doing things: not at all 2. Feeling down, depressed, or hopeless: not at all 3. Trouble falling or staying asleep, or sleeping too much: not at all 4. Feeling tired or having little energy: not at all 5. Poor appetite or overeating: not at all 6. Feeling bad about yourself - or that you are a failure or have let yourself or your family down: not at all 7. Trouble concentrating on things, such as reading the newspaper or watching television: not at all 8. Moving or speaking so slowly that other people could have noticed. Or the opposite - being so fidgety or restless that you have been moving around a lot more than usual: not at all 9. Thoughts that you would be better off or of hurting yourself in some way: not at all Total score: 0 Depression Screening Interpretation: Negative Depression Screening Done: Yes 67426 - PHQ-9 Billing: Yes Source: Developed by Drs. Jason Palencia, Eli White, Carlos Luke and colleagues, with an educational nemesio from [employer]. Thrive Questionnaire Date Thrive assessed: 11/21/24 I am a: Patient What is your living situation today?: I have a steady place to live Within the past 12 months, did the food you bought not last and you didn't have the money to get more?: Never true Within the past 12 months, did you worry whether your food would run out before you got money to buy more?: Never true Do you have trouble paying for medicines?: No Do you have trouble getting transportation to medical appointments?: No Do you have trouble paying your heating and electricity bill?: No Do you have trouble taking care of your child, family member or friend?: No Do you have trouble with day-to-day activities such as bathing, preparing meals, shopping, managing finances, etc.?: No Are you currently unemployed and looking for a job?: No Are you interested in more education?: No Please select the resources that you would like help with: None Currently or been in a relationship where the following occur: No concerns reported THRIVE Score: 0 AUDIT C Alcohol Use Questionnaire (AUDIT-C) 1. How often do you have a drink containing alcohol?: Monthly or less 2. How many drinks containing alcohol do you have on a typical day when you are drinking?: 1 or 2 3. How often do you have six or more drinks on one occasion?: Never Total Score: 1 DIANE-7 AMB Questionnaire DIANE-7 Date DIANE - 7 assessed: 11/21/24 Feeling nervous, anxious, or on edge: 0 = Not at all Not being able to stop or control worryin = Not at all Worrying too much about different things: 0 = Not at all Trouble relaxin = Not at all Being so restless that it is hard to sit still: 0 = Not at all Becoming easily annoyed or irritable: 0 = Not at all Feeling afraid as if something awful might happen: 0 = Not at all Total DIANE-7 score (0-4 normal; 5-9 mild; 10-14 moderate; 15-21 severe): 0 Source: Developed by Drs. Jason Palencia, Eli White, Carlos Luke and colleagues, with an educational nemesio from [employer]. DIANE-7 Assessment Billing DIANE-7 Assessment Tool: DIANE-7 Assessment 72687 Review of Systems Const Denies headache(s) Eyes Denies loss of vision ENT Denies vertigo, Denies dizziness, Denies headache(s) and Denies sore throat Card Denies chest pain, Denies leg edema and Denies lightheadedness Resp Denies cough, Denies hemoptysis and Denies wheezing GI Denies abdominal pain, Denies melena, Denies constipation, Denies diarrhea and Denies vomiting Denies dysuria, Denies urinary frequency and Denies urinary urgency Musc Denies arthralgias, Denies joint swelling, Denies numbness and Denies tingling Neuro Denies Abnormal speech present, Denies behavioral changes, Denies vertigo, Denies dizziness, Denies headache(s), Denies loss of vision, Denies memory loss, Denies numbness and Denies tingling Psych Denies anxiety, Denies behavioral changes, Denies depression, Denies memory loss and Denies panic attacks Mitch/Lymph Denies easy bleeding and Denies easy bruising Aller/Immun Denies wheezing Physical exam (Primary Care) Vital Signs: Last Vital Signs Temp 97.3 F 11/21/24 15:25 Pulse 66 11/21/24 15:25 BP 122/60 11/21/24 15:25 Pulse Ox 98 11/21/24 15:25 Oxygen Delivery Method Room Air 11/21/24 15:25 BMI result Body Mass Index 24.5 Tobacco/Smoking Status: Tobacco use Status Tobacco use date assessed 11/21/24 11/21/24 15:35 Patient Tobacco Use Status Never used Tobacco 11/21/24 15:27 Tobacco use type Cigarette 11/21/24 15:27 e-Cigarette/Vaping Use Never Used 11/21/24 15:27 PHQ-9: PHQ-9 Score PHQ-9: Total score 0 11/21/24 15:57 Depression Screening Interpretation: Negative Thrive Assessment: Date of Thrive Assessment Date Thrive assessed 11/21/24 11/21/24 15:30 Currently or been in a relationship where the following occur: No concerns reported Const General: healthy appearing, no acute distress, alert and awake Nutritional Appearance: well nourished Orientation/consciousness: oriented to person, oriented to place and oriented to time HENMT Ears: TM's normal bilaterally General nose exam: Normal nasal mucous membranes and turbinates present Eyes Conjunctivae: conjunctivae normal Sclerae: sclerae normal Pupils: Equal, round and reactive pupils present Neck Neck: Yes no lymphadenopathy and Yes no JVD Thyroid: Thyroid normal Carotids: no bruits Resp Effort & Inspection: normal respiratory effort and not tachypneic Auscultation: no crackles, no rales, no rhonchi and no wheezes Cardio Rate: regular rate Rhythm: regular rhythm Heart sounds: no murmurs and normal S1 and S2 GI Palpation (GI): Soft to palpation, nontender, no hepatomegaly and no splenomegaly Auscultation: normal bowel sounds Skin General skin exam: no rashes or lesions noted and dry skin Neuro General: oriented to person, oriented to place and oriented to time Cranial nerves: Yes Equal, round and reactive pupils present Speech: No Abnormal speech present Gait exam (Neuro): Normal gait present Motor exam (neuro): no tremor noted Extrem Right upper extremity: full ROM Left upper extremity: full ROM Right lower extremity: full ROM; no edema Left lower extremity: full ROM; no edema Ankle/foot/toe images: 1. RIGHT GREAT TOE WRAPPED, ERYTHEMA NOTED OVER THE BASE OF RIGHT GREAT TOE Psych Mental Status: mental status grossly normal Speech and movement: Normal speech and movement present Affect: normal affect Attitude: cooperative Thought process: Normal thought process present Results AMB Urinalysis, Automated UA Leukoctes 500 [place]/uL Last Edit by Livier Elliott CMA on 11/21/24 14:34 UA Nitrite Negative Last Edit by Livier Elliott CMA on 11/21/24 14:34 UA Urobilinogen 0.2 mg/dL Last Edit by Livier Elliott CMA on 11/21/24 14:34 UA Protein 30 mg/dL Last Edit by Livier Elliott CMA on 11/21/24 14:34 UA pH 6.0 Last Edit by Livier Elliott CMA on 11/21/24 14:34 UA Blood 200 [place]/uL Last Edit by Livier Elliott CMA on 11/21/24 14:34 UA Specific [place] 1.010 Last Edit by Livier Elliott CMA on 11/21/24 14:34 UA Ketone Negative Last Edit by Livier Elliott CMA on 11/21/24 14:34 UA Bilirubin 0 mg/dL Last Edit by Livier Elliott CMA on 11/21/24 14:34 UA Glucose 0 mg/dL Last Edit by Livier Elliott CMA on 11/21/24 14:34 Coding Level of Care Code Est Pt Level 3 (67284) Diagnoses Right foot pain M79.671 Additional Codes DIANE-7 Assessment Billing - DIANE-7 Assessment Tool: DIANE-7 Assessment 89182 ([id number]) PHQ-9 - 23222 - PHQ-9 Billing: Yes ([id number]) Assessment & Plan Assessment & Plan (1) Right foot pain: Code(s): M79.671 - Pain in right foot Category: Medical Plan: 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 Continued use of NSAIDs is recommended for pain management with symptom monitoring. A potential fracture is suspected. An x-ray is planned for confirmation. The patient should rest and elevate to aid healing. Out of an abundance of caution will cover a possible cellulitis of the right foot due to the presenting erythema. While no open wound is present. Orders: Orders XR foot RT 2V 11/21/24 M79.671 - Pain in right foot Medications: New amoxicillin-pot clavulanate 875-125 mg 1 tab PO BID 14 tabs 0RF 7 days M79.671 - Pain in right foot
== END 2024-11-21 16:04 | disposition home or self-care (01) ==
LOC: HO.HMCH 15:24
PROVIDERS: PCP Internal Medicine; Visit Provider Physician Assistant
DX: M79.671 Pain in right foot (principal)

== ENCOUNTER 2024-12-13 13:26 | Outpatient (AMB) | payer MEDICARE, SELFPAY ==
--- NOTE | 2024-12-13 13:33 | A.OFFPC_ITS ---
Vital Signs 12/13/24 13:36 Height 5 ft 10 in Weight 171 lb BMI 24.5 BP 130/60 Blood Pressure Location Lt brachial Position Sitting Pulse 71 Pulse Source Pulse Oximeter Temp 97.3 F Temp Source Temporal Artery Scan Pulse Oximetry (%) 98 Oxygen Delivery Method Room Air Intake Visit Reasons: Home Care Services Intake Note: Patient is here to follow up on Home Care Service. 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 Warehouse: Present Accompanied by: Daughter Allergies latex Allergy (Verified 12/13/24 13:35) Redness of Skin Medication List - Last Reconciled 12/13/24 by Gopi Maldonado MD ascorbic acid (vitamin C) 1 g PO DAILY 90 days catheter (Bard Coude Tip Catheter) As directed ciprofloxacin HCl 250 mg PO BID PRN doxazosin 4 mg PO BEDTIME methenamine hippurate 1 g PO DAILY 90 days rgtxzwvl-jnf-evtdg acid-lutein 400-250 mcg (Centrum Silver) 1 tab PO DAILY potassium chloride ER 20 mEq PO DAILY tamsulosin 0.4 mg PO DAILY 90 days torsemide 20 mg PO DAILY Tobacco use date assessed: 12/13/24 Fall risk assessment: No Falls in past year Last assessed Fall Risk: 12/13/24 Dental Screening Dental Screen Date: 11/21/24 HPI Home Care Services HPI Details home care services, food prep,scheduling food and hydration and medicine , cleaning laundry and , patient does drive, has a nurse, vitals, , . [facility] Medical History Self-catheterizes urinary bladder Peripheral vascular disease Impacted cerumen of both ears CKD (chronic kidney disease) History of renal calculi Neurogenic bladder GERD (gastroesophageal reflux disease) Urinary bladder cancer Impaired glucose tolerance BPH (benign prostatic hyperplasia) Hypertension Surgical History History of esophagogastroduodenoscopy (EGD) H/O colonoscopy History of prostate surgery History of biopsy of bladder History of throat surgery History of lumbar discectomy History of tonsillectomy S/P transurethral resection of prostate Family History Father No problems noted. Mother No problems noted. Son In good health Daughter In good health Social History Household Members: Spouse Housing: House Are you a primary career services director to a significant other at home: Yes ( in rehab s/p CVA) Do you presently have visiting nurse or other home services: No 75 years or older and lives alone: No Alcohol intake: never Patient Tobacco Use Status: Never used Tobacco Tobacco use type: Cigarette e-Cigarette/Vaping Use: Never Used Second Hand Smoke Exposure: No Advance Directives Date on File: 08/06/20 service: Yes Current occupational status: retired Cognitive needs: No Hearing needs: No Vision needs: Yes Questionnaire Thrive Questionnaire Date Thrive assessed: 11/21/24 I am a: Patient What is your living situation today?: I have a steady place to live Within the past 12 months, did the food you bought not last and you didn't have the money to get more?: Never true Within the past 12 months, did you worry whether your food would run out before you got money to buy more?: Never true Do you have trouble paying for medicines?: No Do you have trouble getting transportation to medical appointments?: No Do you have trouble paying your heating and electricity bill?: No Do you have trouble taking care of your child, family member or friend?: No Do you have trouble with day-to-day activities such as bathing, preparing meals, shopping, managing finances, etc.?: No Are you currently unemployed and looking for a job?: No Are you interested in more education?: No Please select the resources that you would like help with: None Currently or been in a relationship where the following occur: No concerns reported THRIVE Score: 0 DIANE-7 AMB Questionnaire DIANE-7 Date DIANE - 7 assessed: 11/21/24 Source: Developed by Drs. Jason Palencia, Eli White, Carlos Luke and colleagues, with an educational nemesio from [employer]. Physical exam (Primary Care) Vital Signs: Last Vital Signs Temp 97.3 F 12/13/24 13:36 Pulse 71 12/13/24 13:36 BP 130/60 12/13/24 13:36 Pulse Ox 98 12/13/24 13:36 Oxygen Delivery Method Room Air 12/13/24 13:36 BMI result Body Mass Index 24.5 Tobacco/Smoking Status: Tobacco use Status Tobacco use date assessed 12/13/24 12/13/24 13:42 Patient Tobacco Use Status Never used Tobacco 12/13/24 13:34 Tobacco use type Cigarette 12/13/24 13:34 e-Cigarette/Vaping Use Never Used 12/13/24 13:34 Thrive Assessment: Date of Thrive Assessment Date Thrive assessed 11/21/24 12/13/24 13:34 Currently or been in a relationship where the following occur: No concerns reported Const General: alert; No acute distress Eyes Conjunctivae: conjunctivae normal Resp Auscultation: clear to auscultation bilaterally Cardio Rate: regular rate Rhythm: regular rhythm GI Inspection: Yes normal to inspection Extrem General: Yes normal to inspection and No edema Coding Level of Care Code Est Pt Level 4 (31872) Complex EM visit Add On G2211 Diagnoses Neurogenic bladder N31.9 Malignant neoplasm of urinary bladder, unspecified site C67.9 Bladder location: unspecified site Impaired glucose tolerance R73.02 Gastroesophageal reflux disease without esophagitis K21.9 Esophagitis presence: without esophagitis Anemia D64.9 Assessment & Plan Assessment & Plan (1) Neurogenic bladder: Code(s): N31.9 - Neuromuscular dysfunction of bladder, unspecified Category: Medical Plan: Patient being followed up by Urology and does self catheterization (2) Urinary bladder cancer: Comment: January 2016 BCG done, gemcitabine 2019, cystoscopy every 6 months December [address] Aleman september 2022 Low grade papillary urothelial neoplasm; Code(s): C67.9 - Malignant neoplasm of bladder, unspecified Category: Medical Qualifiers: Bladder location: unspecified site Qualified Code(s): C67.9 - Malignant neoplasm of bladder, unspecified Plan: Continue to follow-up with urology (3) Impaired glucose tolerance: Code(s): R73.02 - Impaired glucose tolerance (oral) Category: Medical Plan: Decrease the amount of carbohydrate intake, pasta, bread, rice and potatoes are all sugar and that is aside from all the sweet stuff, remember that fruits are good but they are Sweet also. (4) GERD (gastroesophageal reflux disease): Code(s): K21.9 - Gastro-esophageal reflux disease without esophagitis Category: Medical Qualifiers: Esophagitis presence: without esophagitis Qualified Code(s): K21.9 - Gastro-esophageal reflux disease without esophagitis Plan: Avoid the foods that causes that usually spicy foods, tomato products, juices, coffee, soda and foods that your sensitive to. After eating do not lie down, allow 3-4 hours before in lie down. And keep the head of bed above 30 degrees to avoid the acid from going up. (5) Anemia: Code(s): D64.9 - Anemia, unspecified Category: Medical Plan: Advised to follow-up blood test Plan History of Present Illness The patient is an 89-year-old male presenting for a follow-up on chronic conditions including essential hypertension, impaired glucose tolerance, benign prostatic hyperplasia, gastroesophageal reflux disease, and neurogenic bladder. Additionally, he reports new onset right foot pain believed to be related to gout, noting a particular red spot. He associates this with past experiences and suspects dietary triggers. His medical history includes a diagnosis of bladder cancer in 2015 with regular follow-ups and ongoing BPH management. The patient practices self- catheterization due to neurogenic bladder. Bloodwork in 2022 identified anemia. He maintains regular urology visits and recently followed up with nephrology care in March. Health Maintenance - Discussed hydration importance, recommended increasing water intake - Reviewed past procedures for bladder cancer (TURBT with mitomycin C instillation) - Emphasized urinary catheter care to prevent infections - Preventive monitoring of kidney function due to torsemide usage - Blood pressure and glucose management - Hydration and medication management critical for controlling gout symptoms Social History - Lives independently but receives 5-nudq-n-week home health care for 5 hours each day - Daughter coordinates long-term care and insurance, visits regularly - Assistance includes meal preparation, medication management, home cleaning, and laundry - Drives independently but needs assistance with longer trips - Manages daily tasks independently with monitoring - Limited meat intake and drinks water, juice, and lemonade Review of Systems - Cardiovascular: Reports history of low blood pressure - Musculoskeletal: Reports right foot pain, history of toe impact, suspected gout - Respiratory: Denies shortness of breath, chest pain, or cough - Gastrointestinal: Denies nausea, vomiting, or changes in bowel movements - Neurological: Denies headaches or dizziness - General: Reports good general health, no significant weight changes Physical Exam - General- No mention of objective findings - Cardiovascular- Murmur noted, finger swelling evidence present - Respiratory- Crackling in lungs - Musculoskeletal- Red spot on toe noted, possible gout affected area - Extremities- Swelling observed in lower extremities Results - Labs: Anemia noted in 2022 bloodwork - Tests: History of past procedures (TURBT, mitomycin C), pending uric acid test Plan Continue addressing essential hypertension with close blood pressure monitoring. Observe glucose levels for impaired glucose tolerance and adjust diet as needed. For benign prostatic hyperplasia, maintain urology consultations and medication adherence. Manage gastroesophageal reflux disease with dietary changes and medication. Ongoing observation is required for bladder cancer history, with past procedures considered during follow-ups. Neurogenic bladder management includes vigilant catheter and urinary care. Address anemia through additional testing and explore dietary changes or supplements. For the suspected gout, emphasize dietary adjustments and hydration, with potential uric acid testing. Monitor kidney function closely due to torsemide use. Arrange follow-ups for detailed health assessments and management. Patient was informed and verbally consented to the use of an ambient scribe for clinic note documentation during this visit. Discussion Notes During the visit, I reviewed the patient's complex medical history, focusing on chronic conditions including essential hypertension, impaired glucose tolerance, BPH, GERD, and neurogenic bladder, along with a history of bladder cancer. We discussed the management of his conditions, particularly the importance of maintaining adequate hydration and dietary adjustments to mitigate symptoms of suspected gout, possibly related to previous dietary habits. I emphasized the necessity of regular urology and nephrology follow-ups, especially due to noted anemia and using torsemide. We explored bloodwork options to evaluate the patient's current health status, particularly kidney function related to torsemide. The importance of PSA testing in the context of aging was discussed, and the patient's involvement with personal home care aides was reviewed for continued support. I emphasized careful monitoring of potential symptoms and ongoing lifestyle modifications as a comprehensive approach to care. Patient Instructions - Monitor blood pressure regularly and report significant changes - Stay hydrated to help manage gout symptoms; aim for regular water intake - Follow dietary recommendations, focusing on reducing red meat and increasing hydration - Continue current medications as prescribed, including torsemide - Visit urology and nephrology as scheduled for condition monitoring - Be aware of symptoms of anemia, such as fatigue or dizziness, and report concerns - Schedule bloodwork to assess uric acid levels, kidney, and liver function - Contact healthcare professionals if new symptoms or concerns arise Orders: Orders Free T4 (Free Thyroxine) Today R73.02 - Impaired glucose tolerance (oral) Uric Acid Today R73.02 - Impaired glucose tolerance (oral) Thyroid Stimulating Hormone Today R73.02 - Impaired glucose tolerance (oral) Vitamin B12 and Folate Today R73.02 - Impaired glucose tolerance (oral) Lipid Panel Today E78.00 - Pure hypercholesterolemia, unspecified, R73.02 - Impaired glucose tolerance (oral) UA CC w/rflx Micro + Cult Today R30.0 - Dysuria, R73.02 - Impaired glucose tolerance (oral) IRON PROFILE Today R73.02 - Impaired glucose tolerance (oral) B Type Natriuretic Peptide Today R73.02 - Impaired glucose tolerance (oral) Hemoglobin A1c Today R73.02 - Impaired glucose tolerance (oral) Comprehensive Met. Panel Today R73.02 - Impaired glucose tolerance (oral) Complete Blood Count Auto Diff Today R73.02 - Impaired glucose tolerance (oral) Vitamin D 25-OH Total Today R73.02 - Impaired glucose tolerance (oral) Ferritin Today R73.02 - Impaired glucose tolerance (oral) Reticulocyte Count Today R73.02 - Impaired glucose tolerance (oral) XR chest 2V Today R73.02 - Impaired glucose tolerance (oral)
[2024-12-13 13:36] VITALS: BP 130/60; PULSE 71; TEMP 36.3; O2SAT 98; BMI 24.5
--- OUTSIDE RECORDS SUMMARY | 2024-12-13 15:07 | XMS_ITS | Encounter Summary ---
Author Organization [facility] Address [address] [facility] [address] [place] [address] Phone Care Team Providers Care Audit Partner Name Role Phone Kunal Valdivia MD Primary Care Provider [phone] Encounter Details Date Type Department Care Team ([facility] st Contact Info) Description 11/10/2021 Telephone [facility] [address] [facility] [address] [place] [address] Rohit Velez MD [address] [facility] [address] [place] [id number] Social History Tobacco Use Types Packs/Day Years [...] potassium. Please send to the [facility] on [facility] in [place] Thank you documented in this encounter Plan of Treatment Not on file documented as of this encounter Visit Diagnoses Not on filedocumented in this encounter Care Teams Audit Partner Relationship Specialty Start Date End Date Kunal Valdivia MD [address] [place], [place] PCP - General 07/15/20 documented as of this encounter
== END 2024-12-13 14:31 | disposition home or self-care (01) ==
LOC: HO.HMCH 13:26
PROVIDERS: PCP Internal Medicine; Visit Provider Internal Medicine
DX: N31.9 Neuromuscular dysfunction of bladder, unspecified (principal); C67.9 Malignant neoplasm of bladder, unspecified; R73.02 Impaired glucose tolerance (oral); K21.9 Gastro-esophageal reflux disease without esophagitis; D64.9 Anemia, unspecified

== ENCOUNTER → 2024-12-13 13:26 | Outpatient (BNVA) | payer MEDICARE, SELFPAY | PROVIDERS: PCP Internal Medicine; Visit Provider Internal Medicine | DX: K21.9 Gastro-esophageal reflux disease without esophagitis (principal); D64.9 Anemia, unspecified; N31.9 Neuromuscular dysfunction of bladder, unspecified; C67.9 Malignant neoplasm of bladder, unspecified; R73.02 Impaired glucose tolerance (oral); I10 Essential (primary) hypertension; N40.0 Benign prostatic hyperplasia without lower urinary tract symptoms; M79.671 Pain in right foot; R30.0 Dysuria | CPT/HCPCS: 99212 ==

== ENCOUNTER 2024-12-19 08:42 | Outpatient (REF) | payer MEDICARE, SELFPAY ==
--- OUTSIDE RECORDS SUMMARY | 2024-12-19 09:05 | XMS_ITS | Encounter Summary ---
Author Organization [facility] Address [address] [facility] [address] [place] [address] Phone Care Team Providers Care Ticket Dispenser Changer Name Role Phone Kunal Valdivia MD Primary Care Provider [phone] Encounter Details Date Type Department Care Team ([facility] st Contact Info) Description 11/10/2021 Telephone [facility] [address] [facility] [address] [place] [address] Rohit Velez MD [address] [facility] [address] [place] [phone] Social History Tobacco Use Types Packs/Day Years [...] potassium. Please send to the [facility] on [facility] in [place] Thank you documented in this encounter Plan of Treatment Not on file documented as of this encounter Visit Diagnoses Not on filedocumented in this encounter Care Teams Ticket Dispenser Changer Relationship Specialty Start Date End Date Kunal Valdivia MD [address] [place], [place] PCP - General 07/15/20 documented as of this encounter
[2024-12-19 11:42] LABS: Appearance Urine Turbid; Color Urine Yellow; Glucose Urine UA Negative (Negative); Leukocyte Esterase Urine Large (3+) (Negative); Nitrite Urine Negative (Negative); UMIC TRIGGER UACC YES; Urine Blood Moderate (2+) (Negative); Urine Ketones Negative (Negative); Urine Protein 100 (2+) mg/dL (Neg-Trace)
[2024-12-19 11:46] LABS: Bacteria Urine Trace (None Seen); Hyaline Casts Urine 0-2 /LPF (0-2); Squamous Epithelial Cell Urine 0-2 /HPF (0-2); UACC Culture Trigger YES; WBC Urine >50 /HPF (0-5)
[2024-12-19 11:49] LABS: MANUAL DIFF FLAG NO
[2024-12-19 11:54] LABS: Basophils Percent Auto 0.3 % (0-2); Eosinophils Absolute Auto 0.1 X10*3/uL (0.0-0.4); Eosinophils Percent Auto 1.6 % (0-4); Hematocrit 37.4 % (42.0-52.0); Hemoglobin 12.8 g/dl (14.0-18.0); Imm Gran Abs Auto 0.03 X10*3/uL (0.00-0.03); Imm Gran Pct Auto 0.3 % (0.0-0.4); Immature Retic Fraction 11.7 % (2.3-13.4); Lymphocytes Percent Auto 22.9 % (20-40); Mean Corpuscular HGB Conc 34.2 g/dl (31.0-36.0); Mean Corpuscular Hemoglobin 30.8 pg (27.0-33.0); Mean Corpuscular Volume 90.1 fL (80.0-98.0); Mean Platelet Volume 10.5 fL (9.4-12.4); Monocytes Percent Auto 11.1 % (2-11); Neutrophils Absolute Auto 5.6 x10*3/uL (2.0-8.3); Neutrophils Percent Auto 63.8 % (45-73); Platelet Count 209 X10*3/uL (160-400); Red Blood Count 4.15 X10*6/uL (4.60-5.80); Red Cell Distribution Width 13.5 % (11.0-16.0); Retic HGB Equivalent 33.5 pg (30.0-35.0); Reticulocyte Percent 1.3 % (0.5-1.8); Reticulocytes Absolute 0.055 X10*6/uL (0.026-0.095); White Blood Count 8.8 X10*3/uL (4.8-10.8)
[2024-12-19 11:56] LABS: B Type Natriuretic Peptide 167 pg/mL (<100)
[2024-12-19 12:11] LABS: Estimated Average Glucose 111 mg/dL; Hemoglobin A1c % 5.5 % (<6.0)
[2024-12-19 12:14] LABS: Alanine Aminotransferase 15 U/L (0-40); Albumin Level 3.7 g/dL (3.5-5.0); Alkaline Phosphatase 64 U/L (39-117); Anion Gap 11 (12-20); Aspartate Amino Transferase 27 U/L (5-37); Bilirubin Total 0.5 mg/dL (0.0-1.0); Blood Urea Nitrogen 30 mg/dL (9-16); Calcium 9.5 mg/dL (8.4-10.2); Carbon Dioxide 25 mmol/L (22-29); Chloride 109 mmol/L (96-108); Cholesterol 138 mg/dL (<200); Estimated Glomerular Filt Rate 42; Glucose Random 115 mg/dL (60-115); HDL Cholesterol 31 mg/dL (>40); Iron 72 mcg/dL (45-160); LDL Cholesterol Calculated 85 mg/dL (<100); Percent Iron Saturation 32 % (15-50); Potassium 4.4 mmol/L (3.3-5.1); Sodium 141 mmol/L (135-145); Total Iron Binding Capacity 224 mcg/dL (228-428); Total Protein 6.6 g/dL (6.5-8.0); Triglycerides 114 mg/dL (<150); Unsaturated Iron Binding 152 ug/dL; Uric Acid 8.5 mg/dL (3.4-7.0)
[2024-12-19 12:30] LABS: Ferritin 151 ng/mL (20-250); Free T4 (Free Thyroxine) 1.16 ng/dL (0.71-1.85); Thyroid Stimulating Hormone 0.91 uIU/mL (0.32-4.0); Vitamin D 25-OH Total 36.6 ng/mL (>30)
[2024-12-19 12:46] LABS: Folate 11.8 ng/mL (> or = 4.0); Vitamin B12 878 pg/mL (200-900)
== END 2024-12-19 08:43 | disposition home or self-care (01) ==
LOC: HO.WFDLDS 08:42
PROVIDERS: Visit Provider Internal Medicine
DX: R73.02 Impaired glucose tolerance (oral) (principal); E78.00 Pure hypercholesterolemia, unspecified; R30.0 Dysuria
CPT/HCPCS: 36415; 80053; 80061; 81001; 82306; 82607; 82728; 82746; 83036; 83540; 83880; 84439; 84443; 84550; 85025; 85045; 87086

== ENCOUNTER 2024-12-19 09:14 | Outpatient (REF) | payer MEDICARE, SELFPAY ==
--- NOTE | ~2024-12-19 | XR_ITS ---
CLINICAL HISTORY: R73.02 - Impaired glucose tolerance (oral) 2 view chest x-ray Comparison: None provided Findings: Diffuse interstitial opacities in both lungs which could represent pulmonary edema, changes related to COPD or atypical/viral pneumonia. Heart size is normal. No acute fracture. IMPRESSION: Diffuse interstitial opacities in both lungs which could represent pulmonary edema, changes related to COPD or atypical/viral pneumonia. This document has been electronically signed by: Brittany Nuno MD on 12/19/2024 23:01:27
== END 2024-12-19 09:15 | disposition home or self-care (01) ==
LOC: HO.XRAY 09:14
PROVIDERS: PCP Internal Medicine; Visit Provider Internal Medicine
DX: R73.02 Impaired glucose tolerance (oral) (principal)
CPT/HCPCS: 71046

== ENCOUNTER → 2024-12-19 09:22 | Outpatient (BNV) | payer MEDICARE, SELFPAY | PROVIDERS: PCP Internal Medicine; Visit Provider Student in an Organized Health Care Education/Training Program | DX: J84.9 Interstitial pulmonary disease, unspecified (principal) | CPT/HCPCS: 71046 ==

== ENCOUNTER 2024-12-26 14:46 | Outpatient (AMB) | payer BC, SELFPAY ==
[2024-12-26 14:49] VITALS: BP 112/54; PULSE 84; O2SAT 95; BMI 23.8
--- NOTE | 2024-12-26 14:49 | HO.NEPHOV_ITS ---
Vital Signs 12/26/24 14:49 Height 5 ft 10 in Weight 166 lb BMI 23.8 BP 112/54 L Blood Pressure Location Lt brachial Position Sitting Pulse 84 Pulse Source Pulse Oximeter Pulse Oximetry (%) 95 Oxygen Delivery Method Room Air Intake Visit Reasons: INP: *URGENT*abnormal findings of blood chemistry Digital Press Operator Required: No Accompanied by: Daughter Allergies latex Allergy (Verified 12/26/24 14:52) Redness of Skin Medication List - Last Reconciled 12/26/24 by Martin Persaud MD ascorbic acid (vitamin C) 1 g PO DAILY 90 days catheter (Bard Coude Tip Catheter) As directed ciprofloxacin HCl 250 mg PO BID PRN doxazosin 4 mg PO BEDTIME methenamine hippurate 1 g PO DAILY 90 days wuopjktz-fto-hwjnt acid-lutein 400-250 mcg (Centrum Silver) 1 tab PO DAILY potassium chloride ER 20 mEq PO DAILY tamsulosin 0.4 mg PO DAILY 90 days torsemide 20 mg PO DAILY HPI Comments Details: Pleasant 89-year-old male referred for chronic kidney disease. The patient has neurogenic bladder and has been performing self-catheterization for approximately 20 to 25 years, typically four to five times a day, which is consistent with his routine. He reports no significant changes in his condition over the past few years. He was previously being followed by Dr. Elizabeth Chen. The patient has a history of bladder cancer, with a tumor size of 8 cm noted during a cystoscopy. He underwent surgery on November 06, with a follow-up appointment on November 26. There have been no recent changes in medication or new prescriptions since the last visit. The patient has experienced a recent increase in creatinine levels, rising from a baseline of 0.9-1.1 to 1.58, indicating a decline in kidney function. He has mild anemia, which has remained stable over the past three years. The patient also has elevated uric acid levels, with a recent measurement of 8.4, and a history of redness and pain in the toe, suggestive of gout. The patient denies any significant symptoms such as hematuria, back pain, fever, or gastrointestinal issues. He reports occasional shortness of breath when climbing stairs, but no recent weight gain, with a slight decrease from 171 to 166 pounds over the past year. The patient consumes a small amount of wine nightly and has a history of smoking in his 20s and 30s, but quit after a few years. [facility] Medical History (Updated 12/26/24 @ 15:33 by Martin Persaud MD) Self-catheterizes urinary bladder Peripheral vascular disease Impacted cerumen of both ears CKD (chronic kidney disease) History of renal calculi Neurogenic bladder GERD (gastroesophageal reflux disease) Urinary bladder cancer Impaired glucose tolerance BPH (benign prostatic hyperplasia) Hypertension Surgical History History of esophagogastroduodenoscopy (EGD) H/O colonoscopy History of prostate surgery History of biopsy of bladder History of throat surgery History of lumbar discectomy History of tonsillectomy S/P transurethral resection of prostate Family History Father No problems noted. Mother No problems noted. Son In good health Daughter In good health Social History Household Members: Spouse Housing: House Are you a primary client care specialist to a significant other at home: Yes ( in rehab s/p CVA) Do you presently have visiting nurse or other home services: No 75 years or older and lives alone: No Alcohol intake: never Patient Tobacco Use Status: Never used Tobacco Tobacco use type: Cigarette e-Cigarette/Vaping Use: Never Used Second Hand Smoke Exposure: No Advance Directives Date on File: 08/06/20 service: Yes Current occupational status: retired Cognitive needs: No Hearing needs: No Vision needs: Yes Review of Systems Const Details: Has had increasing leg edema. Denies fever(s) and Denies weight loss Card Denies chest pain Resp Denies cough and Denies hemoptysis GI Denies abdominal pain, Denies diarrhea and Denies nausea Musc Denies back pain Neuro Denies focal weakness Physical Exam Vital Signs: Last Vital Signs Pulse 84 12/26/24 14:49 BP 112/54 L 12/26/24 14:49 Pulse Ox 95 12/26/24 14:49 Oxygen Delivery Method Room Air 12/26/24 14:49 BMI result Body Mass Index 23.8 Comfortable Neck supple no JVD. Lungs entry equal no rales. Heart S1-S2 heard no gallop or rub. Abdomen soft nontender. Neuro alert awake oriented. No asterixis. Extremities 1 to 2+ edema. Results Reviewed Nephrology Results: Hgb, (14.0-18.0) 12.8 g/dl L 12/19/24 WBC, (4.8-10.8) 8.8 X10*3/uL 12/19/24 Plt Count, (160-400) 209 X10*3/uL Δ 12/19/24 Sodium, (135-145) 141 mmol/L 12/19/24 Potassium, (3.3-5.1) 4.4 mmol/L 12/19/24 Chloride, (96-108) 109 mmol/L H 12/19/24 Carbon Dioxide, (22-29) 25 mmol/L 12/19/24 BUN, (9-16) 30 mg/dL H 12/19/24 Creatinine, (0.5-1.4) 1.58 mg/dL H 12/19/24 Calcium, (8.4-10.2) 9.5 mg/dL 12/19/24 Urine Protein, (Neg-Trace) 100 (2+) mg/dL H 12/19/24 Assessment & Plan Assessment & Plan (1) CKD (chronic kidney disease): Code(s): N18.9 - Chronic kidney disease, unspecified Category: Medical Plan Initiate a workup for recent increase in serum creatinine. Obstruction needs to be ruled out Other possibility includes hypoperfusion Serum creatinine was 0.9 back in April 2023 in his bumped up to 1.58 as of December 2024. We will track down lab results and ultrasound report from [facility] system The patient is encouraged to continue monitoring for symptoms of gout, and if symptoms recur, treatment with prednisone may be considered. - Drink more water daily to help improve kidney function. - Monitor for any symptoms of gout, such as redness or pain in the toe. - Attend the scheduled blood test next week to check kidney function and uric acid levels. - Return for a follow-up appointment in mid-February unless contacted earlier based on test results. Orders: Orders Creatinine Urine 1 Week N18.9 - Chronic kidney disease, unspecified UA and rflx microscopic 1 Week N18.9 - Chronic kidney disease, unspecified Uric Acid 1 Week N18.9 - Chronic kidney disease, unspecified Basic Metabolic Panel 1 Week N18.9 - Chronic kidney disease, unspecified Total Protein Urine Random 1 Week N18.9 - Chronic kidney disease, unspecified Parathyroid Hormone Intact 1 Week N18.9 - Chronic kidney disease, unspecified Vitamin D 25-OH Total 1 Week N18.9 - Chronic kidney disease, unspecified Coding Level of Care Code New Pt Level 4 (33893) Diagnoses CKD (chronic kidney disease) N18.9
--- OUTSIDE RECORDS SUMMARY | 2024-12-26 17:58 | XMS_ITS | Encounter Summary ---
Author Organization [facility] Address [address] [facility] [address] [place] [address] Phone Care Team Providers Care Property Supervisor Name Role Phone Kunal Valdivia MD Primary Care Provider [phone] Encounter Details Date Type Department Care Team ([facility] st Contact Info) Description 11/10/2021 Telephone [facility] [address] [facility] [address] [place] [address] Rohit Velez MD [address] [facility] [address] [place] [phone] Social History Tobacco Use Types Packs/Day Years [...] potassium. Please send to the [facility] on [facility] in [place] Thank you documented in this encounter Plan of Treatment Not on file documented as of this encounter Visit Diagnoses Not on filedocumented in this encounter Care Teams Property Supervisor Relationship Specialty Start Date End Date Kunal Valdivia MD [address] [place], [place] PCP - General 07/15/20 documented as of this encounter
== END 2024-12-26 15:26 | disposition home or self-care (01) ==
LOC: HO.HKA 14:46
PROVIDERS: PCP Internal Medicine; Referring Provider Internal Medicine; Visit Provider Internal Medicine Hypertension Specialist
DX: N18.9 Chronic kidney disease, unspecified (principal)
CPT/HCPCS: 99204

== ENCOUNTER 2025-01-04 09:12 | Outpatient (REF) | payer BC, SELFPAY ==
--- OUTSIDE RECORDS SUMMARY | 2025-01-04 09:29 | XMS_ITS | Encounter Summary ---
Author Organization [facility] Address [address] [facility] [address] [place] [address] Phone Care Team Providers Care Waiter/Waitress Room Service Name Role Phone Kunal Valdivia MD Primary Care Provider [phone] Encounter Details Date Type Department Care Team ([facility] st Contact Info) Description 11/10/2021 Telephone [facility] [address] [facility] [address] [place] [address] Rohit Velez MD [address] [facility] [address] [place] [phone] Social History Tobacco Use Types Packs/Day Years [...] potassium. Please send to the [facility] [place] Thank you documented in this encounter Plan of Treatment Not on file documented as of this encounter Visit Diagnoses Not on filedocumented in this encounter Care Teams Waiter/Waitress Room Service Relationship Specialty Start Date End Date Kunal Valdivia MD [address] [place], [place] PCP - General 07/15/20 documented as of this encounter
--- OUTSIDE RECORDS SUMMARY | 2025-01-04 09:29 | XMS_ITS | Patient Health Record ---
Author Organization [facility] Address [address] [place] [address] Care Team Providers Care Collar Separator Name Role Phone Skip ([facility])Kunal Primary Care Provide r Unavailable Ana Laura Corrales Unavailable [phone] oyula, ignatiuis Unavailable Unavailable Reason For Referral No Information Medications Medication SIG (Take, Route, Frequency, Duration) Notes Start Date End Date Status Nitrofurantoin Activ e Aspirin Active Omeprazole prn uses QOD Active Tamsulosin HCl Activ e Lisinopril-hydroCHLOROthiaz roosevelt Active Problems Problem Type SNOMED Code ICD Code Onset Dates Problem Status W/U Status Risk Notes Problem 853200488 Gastroesophageal reflux disease without esophagitis (K21.9) Active confirmed Problem [id number] Gastroesophageal reflux disease, esophagitis presence not specified (K21.9) Active confirmed Plan Of Treatment Future Test Test Name Order Date UPPER GI ENDOSCOPY 12/26/2015 Insurance Providers Payer Name Payer Address Payer Phone Subscriber Number Group Number Insured Name Patient Relationship to Insured Coverage Start Date Coverage End Date [facility] [address] [place], [place] [id number] ANA LAURA NEELY Self - patient is the insured Medical (General) History Medical History History ICD Code Urinary retention--has to se lf-catheterize twice a day--sees , III Denies CA,DM,CVA,Lung disease,renal dise ase Chest discomfort in 10/2015-- hospitalization was negative for any acute cardiac event---sees Dr. Valdivia Neg. colonoscopy [place] [address] Hernandez HTN EGD in January of 2016--small h iatal hernia, nonobstructing distal esophageal ring, no esophagitis, gastric biopsies negative for H. pylori, and duodenitis Surgical History Surgery Date(Month/Year) Disc surgery--lower back 25 yrs ago
[2025-01-04 11:38] LABS: Anion Gap 10 (12-20); Blood Urea Nitrogen 25 mg/dL (9-16); Calcium 9.4 mg/dL (8.4-10.2); Carbon Dioxide 27 mmol/L (22-29); Chloride 108 mmol/L (96-108); Estimated Glomerular Filt Rate 48; Potassium 4.1 mmol/L (3.3-5.1); Sodium 141 mmol/L (135-145); Uric Acid 9.3 mg/dL (3.4-7.0)
[2025-01-04 11:45] LABS: Parathyroid Hormone Intact 163.1 pg/mL (8.7-77.1)
[2025-01-04 14:49] LABS: Appearance Urine Turbid; Glucose Urine UA Negative (Negative); PH 7.0 (5.0-9.0); Specific Gravity - Urine 1.010 (1.005-1.025); UMIC TRIGGER UACC YES
[2025-01-04 15:12] LABS: UACC Culture Trigger YES
[2025-01-04 16:16] LABS: Total Protein Urine Random 55 mg/dL (<12)
== END 2025-01-04 09:13 | disposition home or self-care (01) ==
LOC: HO.WFDLDS 09:12
PROVIDERS: Urology; Referring Provider Internal Medicine Hypertension Specialist; Visit Provider Internal Medicine
DX: N18.9 Chronic kidney disease, unspecified (principal)
CPT/HCPCS: 36415; 80048; 81001; 82306; 82570; 83970; 84156; 84550; 87086

== ENCOUNTER 2025-01-24 14:44 | Outpatient (AMB) | payer MEDICARE, SELFPAY ==
[2025-01-24 14:57] VITALS: BP 145/61; PULSE 72; O2SAT 98; BMI 24.0
--- NOTE | 2025-01-24 14:57 | MHC.OFFVIS ---
Vital Signs 01/24/25 14:57 Height 5 ft 10 in Weight 167 lb 8.821 oz BMI 24.0 BP 145/61 H Blood Pressure Location Lt brachial Position Sitting Pulse 72 Pulse Source Pulse Oximeter Pulse Oximetry (%) 98 Oxygen Delivery Method Room Air Intake Visit Reasons: Shortness of breath Intake Note: pt is here as a new patient for follow up of chest x-ray, overall he feels good. Home And School Visitor Required: No Allergies latex Allergy (Verified 01/24/25 15:48) Redness of Skin Medication List - Last Reconciled 01/24/25 by Concepcion Anne MD allopurinol 100 mg PO DAILY ascorbic acid (vitamin C) 1 g PO DAILY 90 days catheter (Bard Coude Tip Catheter) As directed ciprofloxacin HCl 250 mg PO BID PRN doxazosin 4 mg (2 x 2 mg) PO BEDTIME methenamine hippurate 1 g PO DAILY 90 days pdxxhnez-yzr-bnsvk acid-lutein 400-250 mcg (Centrum Silver) 1 tab PO DAILY potassium chloride ER 20 mEq PO DAILY tamsulosin 0.4 mg PO DAILY 90 days torsemide 20 mg PO DAILY Do you need a note to return to daycare/school/sports/work: No HPI HPI Shortness of breath: Details: This gentleman is very pleasant 89 years old, who has been referred to see me for pulmonary evaluation because of a recent chest x-ray which was read as abnormal. He claims that he did not have any respiratory issue /breathing problem. Is primary care physician just heard some crackles in the left lung, and sent him for a chest x-ray. This gentleman spent some time in the [place] and during that period probably in early 60s he may have smoked for a few months but for practical purposes he has been nonsmoker. At age 3 he suffered from pneumonia and had some fluid collection in the left chest, ended up having thoracostomy and drainage of the fluid, and he still has a scar on the left chest from that surgical procedure. After that he has had no chest infection. He is 89 years old very active walks around without any problem . His daughter who came with him say is that lately when he climbs stairs he has expressed the feeling of more shortness of breath than usual. He himself say is that his 3 months ago, and since then he has been somewhat sad, but has been physically active and he walks to the [facility] back and forth every day. He can walk on level ground without any shortness of breath. His bedroom is on the 2nd floor and he has no trouble in walking up stairs to the bedroom. Is general health is very stable. He has had no fever chills that lost for more than 1 or 2 days even if he gets common cold. And he has had no serious. Illness recently [facility] Medical History (Updated 01/24/25 @ 16:06 by Concepcion Anne MD) Pulmonary fibrosis Self-catheterizes urinary bladder Peripheral vascular disease Impacted cerumen of both ears CKD (chronic kidney disease) History of renal calculi Neurogenic bladder GERD (gastroesophageal reflux disease) Urinary bladder cancer Impaired glucose tolerance BPH (benign prostatic hyperplasia) Hypertension Surgical History History of esophagogastroduodenoscopy (EGD) H/O colonoscopy History of prostate surgery History of biopsy of bladder History of throat surgery History of lumbar discectomy History of tonsillectomy S/P transurethral resection of prostate Family History Father No problems noted. Mother No problems noted. Son In good health Daughter In good health Social History Household Members: Spouse Housing: House Are you a primary physician locums urgent care to a significant other at home: Yes ( in rehab s/p CVA) Do you presently have visiting nurse or other home services: No 75 years or older and lives alone: No Alcohol intake: never Patient Tobacco Use Status: Never used Tobacco Tobacco use type: Cigarette e-Cigarette/Vaping Use: Never Used Second Hand Smoke Exposure: No Advance Directives Date on File: 08/06/20 service: Yes Current occupational status: retired Cognitive needs: No Hearing needs: No Vision needs: Yes Review of Systems Const All systems reviewed & are unremarkable except as noted in HPI and below Eyes Reports no additional complaints ENT Reports no additional complaints Card Denies chest pain, Denies diaphoresis, Denies irregular heart rhythm and Denies dyspnea on exertion Resp Reports as per HPI and Denies dyspnea on exertion GI Reports no additional complaints Reports nocturia Musc Reports no additional complaints Skin/Breast Reports system reviewed and no additional complaints, except as documented Neuro Reports no additional complaints Psych Reports no additional complaints Endo Reports no additional complaints Mitch/Lymph Reports no additional complaints Physical Exam Vital Signs: Last Vital Signs Pulse 72 01/24/25 14:57 BP 145/61 H 01/24/25 14:57 Pulse Ox 98 01/24/25 14:57 Oxygen Delivery Method Room Air 01/24/25 14:57 BMI result Body Mass Index 24.0 Results Reviewed Results Reviewed: CHEST XRAY on 12/19/2024 Interstitial opacities in both lungs which could represent pulmonary edema, changes related to COPD or atypical/viral pneumonia. My reading : there are fibrous strands in Lt . upper lobe and at the Ltbase . Only minimal fibrotic chnages on the right side . Assessment & Plan Assessment & Plan (1) SOB (shortness of breath): Comment: Shortness of breath on exertion is minimal. The patient is totally asymptomatic. Denies any cough or expectoration. Code(s): R06.02 - Shortness of breath Category: Medical Plan: Plan : See below (2) Pulmonary fibrosis: Comment: Patient has chronic fibrotic changes in the left lower lobe as well as in the left upper lobe There are a few fibrotic strands in the right lung. I think these changes are chronic and probably resulted from his childhood pneumonia complicated by empyema, treated by thoracostomy and chest drainage. He has had somewhat distorted Anatomy since then , but has remained asymptomatic. Code(s): J84.10 - Pulmonary fibrosis, unspecified Category: Medical Plan: DISCUSSED THE CASE WITH WITH PATIENT AND HIS DAUGHTER. I DID TELL HIM THAT AT AGE 89 HE LOOKS IN [employer] [facility], AND I DO NOT THINK THAT HE HAS ANY SIGNIFICANT RESPIRATORY PROBLEMS. FURTHER WORKUP MAY INCLUDE PULMONARY FUNCTION TEST WELL A CT SCAN OF THE CHEST, BUT I DOUBT THAT WE WILL BE CHANGING ANYTHING FOR HIS ONGOING MANAGEMENT. BOTH THE PATIENT AND HIS DAUGHTER CONCLUDED THAT THERE IS NO NEED TO PROCEED WITH FURTHER WORKUP AT THIS TIME. FOR FOLLOW-UP I HAVE GIVEN HIM THE OF HIS GUARD AND ADVISE THAT HE CAN CALL ANY TIME TO MAKE AN APPOINTMENT TO COME BACK FOR PULMONARY CHECKUP AND TREATMENT IF NEEDED Coding Level of Care Code New Pt Level 4 (38237) Diagnoses SOB (shortness of breath) R06.02 Pulmonary fibrosis J84.10
--- OUTSIDE RECORDS SUMMARY | 2025-01-24 15:15 | XMS_ITS | Encounter Summary ---
Author Organization [facility] Address [address] [facility] [address] [place] [address] Phone Care Team Providers Care Freelance Writer Name Role Phone Kunal Valdivia MD Primary Care Provider [phone] Encounter Details Date Type Department Care Team ([facility] st Contact Info) Description 11/10/2021 Telephone [facility] [address] [facility] [address] [place] [address] Rohit Velez MD [address] [facility] [address] [place] [phone] Social History Tobacco Use Types Packs/Day Years [...] potassium. Please send to the [facility] in [place] Thank you documented in this encounter Plan of Treatment Not on file documented as of this encounter Visit Diagnoses Not on filedocumented in this encounter Care Teams Freelance Writer Relationship Specialty Start Date End Date Kunal Valdivia MD [address] [place], [place] PCP - General 07/15/20 documented as of this encounter
--- OUTSIDE RECORDS SUMMARY | 2025-01-24 15:15 | XMS_ITS | Patient Health Record ---
Author Organization [facility] Address [address] [place] [address] Care Team Providers Care Placement Interviewer Name Role Phone Skip ([facility])Kunal Primary Care Provide r Unavailable Ana Laura Corrales Unavailable [phone] oyula, ignatiuis Unavailable Unavailable Reason For Referral No Information Medications Medication SIG (Take, Route, Frequency, Duration) Notes Start Date End Date Status Nitrofurantoin Activ e Aspirin Active Omeprazole prn uses QOD Active Tamsulosin HCl Activ e Lisinopril-hydroCHLOROthiaz roosevelt Active Problems Problem Type SNOMED Code ICD Code Onset Dates Problem Status W/U Status Risk Notes Problem [id number] Gastroesophageal reflux disease without esophagitis (K21.9) Active confirmed Problem [id number] Gastroesophageal reflux disease, esophagitis presence not specified (K21.9) Active confirmed Plan Of Treatment Future Test Test Name Order Date UPPER GI ENDOSCOPY 12/26/2015 Insurance Providers Payer Name Payer Address Payer Phone Subscriber Number Group Number Insured Name Patient Relationship to Insured Coverage Start Date Coverage End Date [facility] [address] [place], [place] [id number] ANA LAURA NEELY Self - patient is the insured Medical (General) History Medical History History ICD Code Urinary retention--has to se lf-catheterize twice a day--sees , III Denies [place],DM,CVA,Lung disease,renal dise ase Chest discomfort in 10/2015-- [...]
== END 2025-01-24 15:35 | disposition home or self-care (01) ==
LOC: HO.HPS 14:44
PROVIDERS: Family Provider Internal Medicine; PCP Internal Medicine; Visit Provider Internal Medicine
DX: R06.02 Shortness of breath (principal); J84.10 Pulmonary fibrosis, unspecified
CPT/HCPCS: 99204

== ENCOUNTER → 2025-01-24 14:44 | Outpatient (BNVA) | payer MEDICARE, SELFPAY | PROVIDERS: Family Provider Internal Medicine; PCP Internal Medicine; Visit Provider Internal Medicine | DX: R06.02 Shortness of breath (principal); J84.10 Pulmonary fibrosis, unspecified; Z79.899 Other long term (current) drug therapy | CPT/HCPCS: 99202 ==

== ENCOUNTER 2025-02-19 15:07 | Outpatient (AMB) | payer BC, SELFPAY ==
[2025-02-19 15:07] VITALS: BP 152/70; PULSE 67; O2SAT 98; BMI 24.1
--- NOTE | 2025-02-19 15:07 | HO.NEPHOV ---
Vital Signs 02/19/25 15:07 02/19/25 15:17 Height 5 ft 10 in Weight 168 lb BMI 24.1 BP 152/70 H 130/70 Blood Pressure Location Rt brachial Rt brachial Position Sitting Sitting Pulse 67 Pulse Source Pulse Oximeter Pulse Oximetry (%) 98 Oxygen Delivery Method Room Air Intake Visit Reasons: FU/Conf Aerial Erector Required: No Accompanied by: Daughter Allergies latex Allergy (Verified 02/19/25 15:09) Redness of Skin Medication List - Last Reconciled 02/19/25 by Martin Persaud MD allopurinol 100 mg PO DAILY ascorbic acid (vitamin C) 1 g PO DAILY 90 days catheter (Bard Coude Tip Catheter) As directed ciprofloxacin HCl 250 mg PO BID PRN doxazosin 4 mg (2 x 2 mg) PO BEDTIME methenamine hippurate 1 g PO DAILY 90 days jizvilci-uwu-svlip acid-lutein 400-250 mcg (Centrum Silver) 1 tab PO DAILY potassium chloride ER 20 mEq PO DAILY tamsulosin 0.4 mg PO DAILY 90 days torsemide 20 mg PO DAILY HPI Comments Details: Pleasant 89-year-old male referred for chronic kidney disease. The patient has neurogenic bladder and has been performing self-catheterization for approximately 20 to 25 years, typically four to five times a day, which is consistent with his routine. He reports no significant changes in his condition over the past few years. He was previously being followed by Dr. Elizabeth Chen. The patient has a history of bladder cancer, with a tumor size of 8 cm noted during a cystoscopy. He underwent surgery on November 06, with a follow-up appointment on November 26. There have been no recent changes in medication or new prescriptions since the last visit. The patient has experienced a recent increase in creatinine levels, rising from a baseline of 0.9-1.1 to 1.58, indicating a decline in kidney function. He has mild anemia, which has remained stable over the past three years. The patient also has elevated uric acid levels, with a recent measurement of 8.4, and a history of redness and pain in the toe, suggestive of gout. The patient denies any significant symptoms such as hematuria, back pain, fever, or gastrointestinal issues. He reports occasional shortness of breath when climbing stairs, but no recent weight gain, with a slight decrease from 171 to 166 pounds over the past year. The patient consumes a small amount of wine nightly and has a history of smoking in his 20s and 30s, but quit after a few years. 02/19/25 89-year-old male presenting with chronic kidney disease management. Kidney function improved from 42 to 48 percent post-surgery in November. Follow-up is scheduled for tomorrow. Hypertension is managed with torsemide 20 mg, blood pressure improved from 152/70 mmHg to 130/70 mmHg. Peripheral edema is present, torsemide dose unchanged. 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 [facility] Medical History (Updated 01/24/25 @ 16:06 by Concepcion Anne MD) Pulmonary fibrosis Self-catheterizes urinary bladder Peripheral vascular disease Impacted cerumen of both ears CKD (chronic kidney disease) History of renal calculi Neurogenic bladder GERD (gastroesophageal reflux disease) Urinary bladder cancer Impaired glucose tolerance BPH (benign prostatic hyperplasia) Hypertension Surgical History History of esophagogastroduodenoscopy (EGD) H/O colonoscopy History of prostate surgery History of biopsy of bladder History of throat surgery History of lumbar discectomy History of tonsillectomy S/P transurethral resection of prostate Family History Father No problems noted. Mother No problems noted. Son In good health Daughter In good health Social History Household Members: Spouse Housing: House Are you a primary care administrative tech to a significant other at home: Yes ( in rehab s/p CVA) Do you presently have visiting nurse or other home services: No 75 years or older and lives alone: No Alcohol intake: never Patient Tobacco Use Status: Never used Tobacco Tobacco use type: Cigarette e-Cigarette/Vaping Use: Never Used Second Hand Smoke Exposure: No Advance Directives Date on File: 08/06/20 service: Yes Current occupational status: retired Cognitive needs: No Hearing needs: No Vision needs: Yes Physical Exam Vital Signs: Last Vital Signs Pulse 67 02/19/25 15:07 BP 130/70 02/19/25 15:17 Pulse Ox 98 02/19/25 15:07 Oxygen Delivery Method Room Air 02/19/25 15:07 BMI result Body Mass Index 24.1 Comfortable Neck supple no JVD. Lungs entry equal no rales. Heart S1-S2 heard no gallop or rub. Abdomen soft nontender. Neuro alert awake oriented. No asterixis. Extremities 1 to 2+ edema. Results Reviewed Nephrology Results: Hgb, (14.0-18.0) 12.8 g/dl L 12/19/24 WBC, (4.8-10.8) 8.8 X10*3/uL 12/19/24 Plt Count, (160-400) 209 X10*3/uL Δ 12/19/24 Sodium, (135-145) 141 mmol/L 01/04/25 Potassium, (3.3-5.1) 4.1 mmol/L 01/04/25 Chloride, (96-108) 108 mmol/L 01/04/25 Carbon Dioxide, (22-29) 27 mmol/L 01/04/25 BUN, (9-16) 25 mg/dL H 01/04/25 Creatinine, (0.5-1.4) 1.40 mg/dL 01/04/25 Calcium, (8.4-10.2) 9.4 mg/dL 01/04/25 PTH Intact, (8.7-77.1) 163.1 pg/mL H 01/04/25 Urine Protein, (Neg-Trace) 100 (2+) mg/dL H 01/04/25 Urine Creatinine 73.62 mg/dL 01/04/25 Assessment & Plan Assessment & Plan (1) CKD (chronic kidney disease): Code(s): N18.9 - Chronic kidney disease, unspecified Category: Medical Plan workup for recent increase in serum creatinine. Obstruction needs to be ruled out Other possibility includes hypoperfusion Serum creatinine was 0.9 back in April 2023 in his bumped up to 1.58 as of December 2024. Keep Current dose of Torsemide He appears euvolemic BP acceptable Cr is marginally better Recheck Uric acid and adjust Allopurinol Keep Tamsulosin and hold off on Doxasozin 4 mg for now Orders: Orders Uric Acid 02/19/25 N18.9 - Chronic kidney disease, unspecified Basic Metabolic Panel 4 Months N18.9 - Chronic kidney disease, unspecified Uric Acid 4 Months N18.9 - Chronic kidney disease, unspecified Basic Metabolic Panel 02/19/25 N18.9 - Chronic kidney disease, unspecified Complete Blood Count no Diff 02/19/25 N18.9 - Chronic kidney disease, unspecified Coding Level of Care Code Est Pt Level 4 (04233) Diagnoses CKD (chronic kidney disease) N18.9
[2025-02-19 15:17] VITALS: BP 130/70
--- OUTSIDE RECORDS SUMMARY | 2025-02-19 15:43 | XMS_ITS | Encounter Summary ---
Author Organization [facility] Address [address] [facility] [address] [place] [address] Phone Care Team Providers Care Vp Corporate Development Name Role Phone Kunal Valdivia MD Primary Care Provider [phone] Encounter Details Date Type Department Care Team ([facility] st Contact Info) Description 11/10/2021 Telephone [facility] [address] [facility] [address] [place] [address] Rohit Velez MD [address] [facility] [address] [place] [phone] Social History Tobacco Use Types Packs/Day Years [...] potassium. Please send to the [facility] in [place] Thank you documented in this encounter Plan of Treatment Not on file documented as of this encounter Visit Diagnoses Not on filedocumented in this encounter Care Teams Vp Corporate Development Relationship Specialty Start Date End Date Kunal Valdivia MD [address] [place], [place] PCP - General 07/15/20 documented as of this encounter
--- OUTSIDE RECORDS SUMMARY | 2025-02-19 15:43 | XMS_ITS | Patient Health Record ---
Author Organization [facility] Address [address] [place] [address] Care Team Providers Care Forensic Document Examiner Name Role Phone Skip ([facility])Kunal Primary Care Provide r Unavailable Ana Laura Corrales Unavailable [phone] oyula, ignatiuis Unavailable Unavailable Reason For Referral No Information Medications Medication SIG (Take, Route, Frequency, Duration) Notes Start Date End Date Status Nitrofurantoin Activ e Aspirin Active Omeprazole prn uses QOD Active Tamsulosin HCl Activ e Lisinopril-hydroCHLOROthiaz roosevelt Active Problems Problem Type SNOMED Code ICD Code Onset Dates Problem Status W/U Status Risk Notes Problem [id number] Gastroesophageal reflux disease without esophagitis (K21.9) Active confirmed Problem 227010436 Gastroesophageal reflux disease, esophagitis presence not specified (K21.9) Active confirmed Plan Of Treatment Future Test Test Name Order Date UPPER GI ENDOSCOPY 12/26/2015 Insurance Providers Payer Name Payer Address Payer Phone Subscriber Number Group Number Insured Name Patient Relationship to Insured Coverage Start Date Coverage End Date [facility] [address] [place], [place] [id number] ANA LAURA NEELY Self - patient is the insured Medical (General) History Medical History History ICD Code Urinary retention--has to se lf-catheterize twice a day--sees , III Denies [place],DM,CVA,Lung disease,renal dise ase Chest discomfort in 10/2015-- [...]
== END 2025-02-19 15:21 | disposition home or self-care (01) ==
LOC: HO.HKA 15:08
PROVIDERS: PCP Internal Medicine; Visit Provider Internal Medicine Hypertension Specialist
DX: N18.9 Chronic kidney disease, unspecified (principal)
CPT/HCPCS: 99214

== ENCOUNTER 2025-02-20 14:02 | Outpatient (AMB) | payer MEDICARE, SELFPAY ==
--- NOTE | 2025-02-20 14:10 | A.OFFVIS_ITS ---
Intake Visit Reasons: cysto Intake Note: Pt presents to the office today for a Cystoscopy Urology meds : Allopurinol,VIT-C,Tamsulosin,Toresemide,Methenamine Blood thinner: none Precision Honer Required: No Accompanied by: Self / Same As Patient Allergies latex Allergy (Verified 02/20/25 14:12) Redness of Skin HPI Comments Details: Jason is a pleasant male. He is a patient of Dr. Valdivia. He is seen for the following urologic issues - bladder cancer - neurogenic bladder requiring self catheterization Recent sidewall fulguration Three-month follow-up check cysto office Cystoscopy normal Has methenamine for self catheterization Cystitis cystica Continue surveillance Uses coude catheter Bladder cancer - 03/27 fulguration - 04/26 recurrent low-grade - 11/26 recurrent superficial Initial diagnosis with Dr. Kay Pathology - recurrent low-grade noninvasive bladder cancer EORTC risk - intermediate TURBT - 12/24 fulguration - gemcitabine, - 09/24 fulgeration [facility] - low grade bladder cancer - 04/26 biopsy with [facility] - post procedure persistant bleeding requiring repeat fulgeration Immunotherapy - induction BCG and boost gemcitabine - 09/25 3 week boost Cystoscopy - 07/25 NAD - 04/24 inflammation - 11/23 superficial recurrence One year of smoking history, did work at [employer] for 2 years as younger male Neurogenic bladder Uses self catheterization TURP late - Regrowth left side GreenLight laser April 2021 PSA 02/22 2.21 Does have recurrent UTI - 06/25 Klebsiella Amp R PFSH Medical History (Updated 01/24/25 @ 16:06 by Concepcion Anne MD) Pulmonary fibrosis Self-catheterizes urinary bladder Peripheral vascular disease Impacted cerumen of both ears CKD (chronic kidney disease) History of renal calculi Neurogenic bladder GERD (gastroesophageal reflux disease) Urinary bladder cancer Impaired glucose tolerance BPH (benign prostatic hyperplasia) Hypertension Surgical History History of esophagogastroduodenoscopy (EGD) H/O colonoscopy History of prostate surgery History of biopsy of bladder History of throat surgery History of lumbar discectomy History of tonsillectomy S/P transurethral resection of prostate Family History Father No problems noted. Mother No problems noted. Son In good health Daughter In good health Social History Household Members: Spouse Housing: House Are you a primary health careers instructor to a significant other at home: Yes ( in rehab s/p CVA) Do you presently have visiting nurse or other home services: No Alcohol intake: never Patient Tobacco Use Status: Never used Tobacco Tobacco use type: Cigarette e-Cigarette/Vaping Use: Never Used Second Hand Smoke Exposure: No Advance Directives Date on File: 08/06/20 service: Yes Current occupational status: retired Cognitive needs: No Hearing needs: No Vision needs: Yes Review of Systems Const Denies chills and Denies fever(s) Card Reports no additional complaints and Denies syncope Resp Denies cough GI Denies abdominal pain and Denies heartburn Reports as per HPI and Denies change in libido Neuro Denies syncope Psych Denies change in libido Endo Denies change in libido Physical Exam Const General: cooperative, healthy appearing, comfortable and no acute distress Orientation/consciousness: patient oriented x3 HEENT Face and sinus: Yes normal facial exam Mouth: moist mucous membranes Neck Neck: Yes normal visual inspection, Yes full ROM and Yes trachea midline Chest Chest palpation & inspection: normal inspection of the chest Resp Effort & Inspection: normal respiratory effort, able to speak in complete senten gonzalo and no respiratory distress GI Inspection: Yes normal to inspection Back/Spine/Pelvis Cervical Spine: normal cervical lordosis Thoracic/Lumbar Spine: thoracic and lumbar spine normal to inspection Skin General skin exam: no rashes or lesions noted Neuro General: patient oriented x3, gait normal, tone normal and moves all extremities Extrem General: Yes normal to inspection and Yes capillary refill normal Office Procedures Cystoscopy Consent Discussed risk and benefit or proposed procedure with the patient. Information consent for procedure given to the patient. Discussed technical aspects, risks, benefits and alternatives in full. Addressed all of the patient's questions and concerns regarding the procedure. The patient demonstrated knowledge and understanding. They wish to proceed with this procedure. Preparation The patient was prepped in the usual manner. A finance lecturer was present and in the room. Genitalia was prepped with betadine solution in a sterile manner. Lid ocaine Jelly 2% was placed into the urethra and 16Fr flexible Olympus cystoscope was inserted into the meatus after adequate lubrication. Procedure Cystoscopy performed using a disposable Urovue digital 16 Belizean cystoscope. Meatus circumcised Urethra anterior and posterior urethra normal Prostatic Urethra unremarkable Bladder examination with retroflexion of cystoscope Bladder Orifices normal shape and position Bladder Capacity Normal Trabeculations Grade 0 Cellule Formation None Diverticulum Formation None Mucosal Erythema None Bladder Tumor None [id number] DISPOSABLE SCOPE URO-G FLEXIBLE SCOPE Procedure code (CPT) selection complete Office Meds lidocaine HCl 2 % mucosal jelly in applicator Performing Provider: Roberto Aleman MD Performing Location: [facility] Administered by: Chelle Cardenas RN on 02/20/25 14:36 Dose Route Admin Location Dispensed Lot Number Expiration Date NDC Vocational Rehabilitation Specialist 10 mL intra-urethral 10 mL nitrofurantoin monohydrate/macrocrystals 100 mg capsule Performing Provider: Roberto Aleman MD Performing Location: [facility] Administered by: Chelle Cardenas RN on 02/20/25 14:36 Dose Route Admin Location Dispensed Lot Number Expiration Date NDC Vocational Rehabilitation Specialist 100 mg PO 1 cap Assessment & Plan Assessment & Plan (1) Urinary bladder cancer: Comment: January 2016 BCG done, gemcitabine 2019, cystoscopy every 6 months December [address] Aleman september 2022 Low grade papillary urothelial neoplasm; Code(s): C67.9 - Malignant neoplasm of bladder, unspecified Category: Medical Qualifiers: Bladder location: unspecified site Qualified Code(s): C67.9 - Malignant neoplasm of bladder, unspecified Plan Six-month follow-up check cysto office Orders: Orders AMB Cystoscopy 02/20/25 N31.9 - Neuromuscular dysfunction of bladder, unspecified, N39.0 - Urinary tract infection, site not specified, N30.80 - Other cystitis without hematuria Patient Instructions: This note is constructed using voice recognition software. While every effort has been made to ensure accuracy gravel screener errors may have been included. Imaging studies, laboratory and physical exam results were discussed and reviewed in detail. No major barriers to patient understanding were identified. An opportunity to ask questions regarding the treatment plan was provided. All questions were answered. The patient expressed understanding and agreement with the above treatment plan. The patient is aware they should contact our office by phone for worsening of their current condition or the appearance of new urologic symptoms. Compliance is encouraged with any medications and followup testing that is ordered. It is a privilege to participate in the urologic care of your patient. If you have any questions or concerns regarding treatment for the above conditions, or other urologic issues, please do not hesitate to contact me. The office telephone contact is [phone]. Sincerely, Dr Roberto Aleman MD, [facility] - Urology Compassionate Specialist Care for the Genitourinary System Coding Level of Care Code Est Pt Level 3 (75132) Complex EM visit Add On G2211 Diagnoses Malignant neoplasm of urinary bladder, unspecified site C67.9 Bladder location: unspecified site CPT Codes Cystoscopy - CPT: [id number] ([id number])
--- OUTSIDE RECORDS SUMMARY | 2025-02-20 15:23 | XMS_ITS | Encounter Summary ---
Author Organization [facility] Address [address] [facility] [address] [place] [address] Phone Care Team Providers Care Associate Civil Engineer Name Role Phone Kunal Valdivia MD Primary Care Provider [phone] Encounter Details Date Type Department Care Team ([facility] st Contact Info) Description 11/10/2021 Telephone [facility] [address] [facility] [address] [place] [address] Rohit Velez MD [address] [facility] [address] [place] [phone] Social History Tobacco Use Types Packs/Day Years [...] potassium. Please send to the [facility] on [facility] [place] Thank you documented in this encounter Plan of Treatment Not on file documented as of this encounter Visit Diagnoses Not on filedocumented in this encounter Care Teams Associate Civil Engineer Relationship Specialty Start Date End Date Kunal Valdivia MD [address] [place], [place] PCP - General 07/15/20 documented as of this encounter
--- OUTSIDE RECORDS SUMMARY | 2025-02-20 15:23 | XMS_ITS | Patient Health Record ---
Author Organization [facility] Address [address] [place] [address] Care Team Providers Care Maintenance Advisor Name Role Phone Skip ([facility])Kunal Primary Care Provide r Unavailable Ana Laura Corrales Unavailable [phone] oyula, ignatiuis Unavailable Unavailable Reason For Referral No Information Medications Medication SIG (Take, Route, Frequency, Duration) Notes Start Date End Date Status Nitrofurantoin Activ e Aspirin Active Omeprazole prn uses QOD Active Tamsulosin HCl Activ e Lisinopril-hydroCHLOROthiaz roosevelt Active Problems Problem Type SNOMED Code ICD Code Onset Dates Problem Status W/U Status Risk Notes Problem 120788579 Gastroesophageal reflux disease without esophagitis (K21.9) Active confirmed Problem [id number] Gastroesophageal reflux disease, esophagitis presence not specified (K21.9) Active confirmed Plan Of Treatment Future Test Test Name Order Date UPPER GI ENDOSCOPY 12/26/2015 Insurance Providers Payer Name Payer Address Payer Phone Subscriber Number Group Number Insured Name Patient Relationship to Insured Coverage Start Date Coverage End Date [facility] [address] [place], [place] [id number] ANA LAURA NEELY Self - patient is the insured Medical (General) History Medical History History ICD Code Urinary retention--has to se lf-catheterize twice a day--sees , III Denies NM,DM,CVA,Lung disease,renal dise ase Chest discomfort in 10/2015-- [...]
== END 2025-02-20 14:57 | disposition home or self-care (01) ==
LOC: HO.HUSH 14:03
PROVIDERS: PCP Internal Medicine; Visit Provider Urology
DX: N31.9 Neuromuscular dysfunction of bladder, unspecified (principal); N39.0 Urinary tract infection, site not specified; N30.80 Other cystitis without hematuria
CPT/HCPCS: 52000; 99213; G2211

== ENCOUNTER → 2025-02-20 14:02 | Outpatient (BNVA) | payer MEDICARE, SELFPAY | PROVIDERS: PCP Internal Medicine; Visit Provider Urology | DX: C67.9 Malignant neoplasm of bladder, unspecified (principal); N31.9 Neuromuscular dysfunction of bladder, unspecified; N30.80 Other cystitis without hematuria | CPT/HCPCS: 52000; 99212 ==

== ENCOUNTER 2025-02-22 10:07 | Outpatient (REF) | payer MEDICARE, SELFPAY ==
--- OUTSIDE RECORDS SUMMARY | 2025-02-22 11:32 | XMS_ITS | Encounter Summary ---
Author Organization [facility] Address [address] [facility] [address] [place] [address] Phone Care Team Providers Care Covering Machine Operator Helper Name Role Phone Kunal Valdivia MD Primary Care Provider [phone] Encounter Details Date Type Department Care Team ([facility] st Contact Info) Description 11/10/2021 Telephone [facility] [address] [facility] [address] [place] [address] Rohit Velez MD [address] [facility] [address] [place] [phone] Social History Tobacco Use Types Packs/Day Years [...] potassium. Please send to the [facility] on [facility] [place] Thank you documented in this encounter Plan of Treatment Not on file documented as of this encounter Visit Diagnoses Not on filedocumented in this encounter Care Teams Covering Machine Operator Helper Relationship Specialty Start Date End Date Kunal Valdivia MD [address] [place], [place] PCP - General 07/15/20 documented as of this encounter
--- OUTSIDE RECORDS SUMMARY | 2025-02-22 11:32 | XMS_ITS | Patient Health Record ---
Author Organization [facility] Address [address] [place] [address] Care Team Providers Care Business Performance Advisor Name Role Phone Skip ([facility])Kunal Primary Care Provide r Unavailable Ana Laura Corrales Unavailable [phone] oyula, ignatiuis Unavailable Unavailable Reason For Referral No Information Medications Medication SIG (Take, Route, Frequency, Duration) Notes Start Date End Date Status Nitrofurantoin Activ e Aspirin Active Omeprazole prn uses QOD Active Tamsulosin HCl Activ e Lisinopril-hydroCHLOROthiaz roosevelt Active Problems Problem Type SNOMED Code ICD Code Onset Dates Problem Status W/U Status Risk Notes Problem [id number] Gastroesophageal reflux disease without esophagitis (K21.9) Active confirmed Problem [id number] Gastroesophageal reflux disease, esophagitis presence not specified (K21.9) Active confirmed Plan Of Treatment Future Test Test Name Order Date UPPER GI ENDOSCOPY 12/26/2015 Insurance Providers Payer Name Payer Address Payer Phone Subscriber Number Group Number Insured Name Patient Relationship to Insured Coverage Start Date Coverage End Date [facility] [address] [place], [place] [id number] ANA LAURA NEELY Self - patient is the insured Medical (General) History Medical History History ICD Code Urinary retention--has to se lf-catheterize twice a day--sees , III Denies [place],DM,CVA,Lung disease,renal dise ase Chest discomfort in 10/2015-- [...]
[2025-02-22 11:35] LABS: Hematocrit 41.0 % (42.0-52.0); Hemoglobin 13.4 g/dl (14.0-18.0); Mean Corpuscular HGB Conc 32.7 g/dl (31.0-36.0); Mean Corpuscular Hemoglobin 29.7 pg (27.0-33.0); Mean Corpuscular Volume 90.9 fL (80.0-98.0); NRBC Abs Auto 0.000 X10*3/uL (0.0-0.012); NRBC Pct Auto 0.0 /100WBC (0.0-0.2); Platelet Count 179 X10*3/uL (160-400); Red Blood Count 4.51 X10*6/uL (4.60-5.80); White Blood Count 7.9 X10*3/uL (4.8-10.8)
[2025-02-22 12:03] LABS: Anion Gap 10 (12-20); Blood Urea Nitrogen 21 mg/dL (9-16); Calcium 9.5 mg/dL (8.4-10.2); Carbon Dioxide 29 mmol/L (22-29); Chloride 107 mmol/L (96-108); Estimated Glomerular Filt Rate 55; Potassium 3.9 mmol/L (3.3-5.1); Sodium 142 mmol/L (135-145)
[2025-02-22 12:14] LABS: Uric Acid 6.3 mg/dL (3.4-7.0)
== END 2025-02-22 10:08 | disposition home or self-care (01) ==
LOC: HO.WFDLDS 10:07
PROVIDERS: Visit Provider Internal Medicine Hypertension Specialist
DX: N18.9 Chronic kidney disease, unspecified (principal)
CPT/HCPCS: 36415; 80048; 84550; 85027

== ENCOUNTER 2025-06-12 09:19 | Outpatient (REF) | payer MEDICARE, SELFPAY ==
[2025-06-12 11:24] LABS: Anion Gap 10 (12-20); Blood Urea Nitrogen 24 mg/dL (9-16); Calcium 9.5 mg/dL (8.4-10.2); Carbon Dioxide 28 mmol/L (22-29); Chloride 111 mmol/L (96-108); Estimated Glomerular Filt Rate 49; Potassium 3.9 mmol/L (3.3-5.1); Sodium 145 mmol/L (135-145); Uric Acid 6.3 mg/dL (3.4-7.0)
== END 2025-06-12 09:20 | disposition home or self-care (01) ==
LOC: HO.WFDLDS 09:19
PROVIDERS: Visit Provider Internal Medicine Hypertension Specialist
DX: N18.9 Chronic kidney disease, unspecified (principal)
CPT/HCPCS: 36415; 80048; 84550

== ENCOUNTER 2025-06-18 14:43 | Outpatient (AMB) | payer MEDICARE, SELFPAY ==
[2025-06-18 14:48] VITALS: BP 120/58; PULSE 85; O2SAT 99; BMI 25.4
--- NOTE | 2025-06-18 14:48 | HO.NEPHOV ---
Vital Signs 06/18/25 14:48 Height 5 ft 10 in Weight 177 lb BMI 25.4 BP 120/58 L Blood Pressure Location Rt brachial Position Sitting Pulse 85 Pulse Source Pulse Oximeter Pulse Oximetry (%) 99 Oxygen Delivery Method Room Air Intake Visit Reasons: f/u w/labs Lead Android Developer Required: No Accompanied by: Self / Same As Patient Allergies latex Allergy (Verified 06/18/25 14:49) Redness of Skin Medication List - Last Reconciled 06/18/25 by Martin Persaud MD allopurinol 100 mg PO DAILY ascorbic acid (vitamin C) 1 g PO DAILY 90 days catheter (Bard Coude Tip Catheter) As directed ciprofloxacin HCl 250 mg PO BID PRN doxazosin 4 mg (2 x 2 mg) PO BEDTIME methenamine hippurate 1 g PO DAILY 90 days tmyipbae-wgd-yjbkg acid-lutein 400-250 mcg (Centrum Silver) 1 tab PO DAILY potassium chloride ER 20 mEq PO DAILY tamsulosin 0.4 mg PO DAILY 90 days torsemide 20 mg PO DAILY HPI Comments Details: History of Present Illness Pleasant 89-year-old male referred for chronic kidney disease. The patient has neurogenic bladder and has been performing self-catheterization for approximately 20 to 25 years, typically four to five times a day, which is consistent with his routine. He reports no significant changes in his condition over the past few years. He was previously being followed by Dr. Elizabeth Chen. The patient has a history of bladder cancer, with a tumor size of 8 cm noted during a cystoscopy. He underwent surgery on November 06, with a follow-up appointment on November 26. There have been no recent changes in medication or new prescriptions since the last visit. The patient has experienced a recent increase in creatinine levels, rising from a baseline of 0.9-1.1 to 1.58, indicating a decline in kidney function. He has mild anemia, which has remained stable over the past three years. The patient also has elevated uric acid levels, with a recent measurement of 8.4, and a history of redness and pain in the toe, suggestive of gout. His medications include allopurinol, doxazosin, potassium chloride, tamsulosin, and torsemide, with no recent changes reported. He denies shortness of breath, diarrhea, and constipation. Socially, he consumes a small amount of wine daily but admits to not drinking enough water. Results - Recent bloodwork from two weeks ago shows: - Potassium: Normal. - Creatinine: 1.37 mg/dL, corresponding to a kidney function of 49-50%. - Uric acid: 6.3 mg/dL, improved from a previous level of 9.3 mg/dL. [facility] Medical History (Updated 01/24/25 @ 16:06 by Concepcion Anne MD) Pulmonary fibrosis Self-catheterizes urinary bladder Peripheral vascular disease Impacted cerumen of both ears CKD (chronic kidney disease) History of renal calculi Neurogenic bladder GERD (gastroesophageal reflux disease) Urinary bladder cancer Impaired glucose tolerance BPH (benign prostatic hyperplasia) Hypertension Surgical History History of esophagogastroduodenoscopy (EGD) H/O colonoscopy History of prostate surgery History of biopsy of bladder History of throat surgery History of lumbar discectomy History of tonsillectomy S/P transurethral resection of prostate Family History Father No problems noted. Mother No problems noted. Son In good health Daughter In good health Social History Household Members: Spouse Housing: House Are you a primary career development consultant to a significant other at home: Yes ( in rehab s/p CVA) Do you presently have visiting nurse or other home services: No 75 years or older and lives alone: No Alcohol intake: never Patient Tobacco Use Status: Never used Tobacco Tobacco use type: Cigarette e-Cigarette/Vaping Use: Never Used Second Hand Smoke Exposure: No Advance Directives Date on File: 08/06/20 service: Yes Current occupational status: retired Cognitive needs: No Hearing needs: No Vision needs: Yes Physical Exam Exam Exam: Physical Exam General: Awake. Comfortable. HENT: Neck supple. Mucosa moist. Pulmonary: Lungs aeration equal. No rales. Cardiology: Heart S1-S2 heard. No gallop. Abdomen: Soft. Non tender. Bowel sounds normal. Neurologic: No involuntary movements. No myoclonus. Extremities: No rash. A little puffiness in legs, acceptable. Vital Signs: Last Vital Signs Pulse 85 06/18/25 14:48 BP 120/58 L 06/18/25 14:48 Pulse Ox 99 06/18/25 14:48 Oxygen Delivery Method Room Air 06/18/25 14:48 BMI result Body Mass Index 25.4 Comfortable Neck supple no JVD. Lungs entry equal no rales. Heart S1-S2 heard no gallop or rub. Abdomen soft nontender. Neuro alert awake oriented. No asterixis. Extremities 1 to 2+ edema. Results Reviewed Nephrology Results: Hgb, (14.0-18.0) 13.4 g/dl L 02/22/25 WBC, (4.8-10.8) 7.9 X10*3/uL 02/22/25 Plt Count, (160-400) 179 X10*3/uL 02/22/25 Sodium, (135-145) 145 mmol/L 06/12/25 Potassium, (3.3-5.1) 3.9 mmol/L 06/12/25 Chloride, (96-108) 111 mmol/L H 06/12/25 Carbon Dioxide, (22-29) 28 mmol/L 06/12/25 BUN, (9-16) 24 mg/dL H 06/12/25 Creatinine, (0.5-1.4) 1.37 mg/dL 06/12/25 Calcium, (8.4-10.2) 9.5 mg/dL 06/12/25 PTH Intact, (8.7-77.1) 163.1 pg/mL H 01/04/25 Urine Protein, (Neg-Trace) 100 (2+) mg/dL H 01/04/25 Urine Creatinine 73.62 mg/dL 01/04/25 Assessment & Plan Assessment & Plan (1) CKD (chronic kidney disease): Code(s): N18.9 - Chronic kidney disease, unspecified Category: Medical Plan Plan 1. Chronic Kidney Disease ~In a setting of Bladder cancer Urinary retention and self catheterization - The patient's kidney function is stable with a GFR of 49-50% and a creatinine of 1.37 mg/dL, which is noted to be slightly improved since December. - No changes will be made to the current treatment regimen. - Plan to repeat blood work in five months to continue monitoring kidney function. 2. Hyperuricemia - The patient's uric acid level has improved significantly from 9.3 to 6.3 mg/dL with allopurinol treatment. - He will continue the current dose of allopurinol. 3. Bladder CA and Chronic Urinary Retention Follows with Urology - The patient is stable on his current regimen of self-catheterization three times a day, without pain, burning, or hematuria. - He will continue his current medications, including tamsulosin and doxazosin, and the established catheterization schedule. Orders: Orders Comprehensive Met. Panel 5 Months N18.9 - Chronic kidney disease, unspecified Complete Blood Count no Diff 5 Months N18.9 - Chronic kidney disease, unspecified Coding Level of Care Code Est Pt Level 4 (93373) Diagnoses CKD (chronic kidney disease) N18.9
--- OUTSIDE RECORDS SUMMARY | 2025-06-18 21:13 | XMS_ITS | Patient Health Record ---
Author Organization [facility] Address [address] [place] [address] Care Team Providers Care Station Manager Name Role Phone Skip ([facility])Kunal Primary Care Provide r Unavailable Ana Laura Corrales Unavailable [phone] oyula, ignatiuis Unavailable Unavailable Reason For Referral No Information Medications Medication SIG (Take, Route, Frequency, Duration) Notes Start Date End Date Status Nitrofurantoin Activ e Aspirin Active Omeprazole prn uses QOD Active Tamsulosin HCl Activ e Lisinopril-hydroCHLOROthiaz roosevelt Active Social History Social History Additional Details Category Social Info Options Details Miscellaneous: Marital status: Occupation: Retired facilities engineer Section Notes: Stopped smoking age 36; 1 dr ink per day Stopped smoking age 36; 1 dr ink per day Problems Problem Type SNOMED Code ICD Code Onset Dates Problem Status W/U Status Risk Notes Problem Gastroesophageal reflux disease without esophagitis (989024061) Gastroesophageal reflux disease without esophagitis (K21.9) Active confirmed Problem Gastroesophageal reflux disease (923798449) Gastroesophageal reflux disease, esophagitis presence not specified (K21.9) Active confirmed Plan Of Treatment Future Test Test Name Order Date UPPER GI ENDOSCOPY 12/26/2015 Insurance Providers Payer Name Payer Address Payer Phone Subscriber Number Group Number Insured Name Patient Relationship to Insured Coverage Start Date Coverage End Date [facility] [address] [place], [place] [id number] ANA LAURA NEELY Self - patient is the insured Medical (General) History Medical History History ICD Code Urinary retention--has to se lf-catheterize twice a day--sees , III Denies MD,DM,CVA,Lung disease,renal dise ase Chest discomfort in 10/2015-- hospitalization was negative for any acute cardiac event---sees Dr. Skip Mathew colonoscopy [place] [address] Hernandez HTN EGD in January of 2016--small h iatal hernia, nonobstructing distal esophageal ring, no esophagitis, gastric biopsies negative for H. pylori, and duodenitis Surgical History Surgery Date(Month/Year) Disc surgery--lower back 25 yrs ago
== END 2025-06-18 15:01 | disposition home or self-care (01) ==
LOC: HO.HKA 14:43
PROVIDERS: PCP Internal Medicine; Visit Provider Internal Medicine Hypertension Specialist
DX: N18.9 Chronic kidney disease, unspecified (principal)
CPT/HCPCS: 99214

== ENCOUNTER → 2025-06-18 14:43 | Outpatient (BNVA) | payer MEDICARE, SELFPAY | PROVIDERS: PCP Internal Medicine; Visit Provider Internal Medicine Hypertension Specialist | DX: I12.9 Hypertensive chronic kidney disease with stage 1 through stage 4 chronic kidney disease, or unspecified chronic kidney disease (principal); N18.9 Chronic kidney disease, unspecified; E79.0 Hyperuricemia without signs of inflammatory arthritis and tophaceous disease; C67.9 Malignant neoplasm of bladder, unspecified; R33.9 Retention of urine, unspecified; Z79.899 Other long term (current) drug therapy | CPT/HCPCS: 99212 ==